=== PATIENT | male | born 1970 | race Caucasian/White ===

== ENCOUNTER 2016-08-18 07:24 | Emergency (ER) | payer OTHER ==
[~2016-08-18] VITALS: Wt 123.5 kg
[~2016-08-18 07:24] MED LIST: ASPI-664 PO; ATOR40TA68 PO; ERGO500014 PO; IBUP800T25 PO; INSU100C SQ; LANT3I SC; LOSA25TA5 PO; METO50TA16 PO
[2016-08-18] MEDS ORDERED: KETOROLAC 30 MG INJ IV STA (08:31)
--- NOTE | 2016-08-18 08:40 | ERD ---
ER Documentation Chief Complaint Date/Time DATE: 08/18/16 TIME: 08:33 Chief Complaint LOW BACK PAIN, ONSET 2 DAYS, NO INJURY HPI 46-year-old male with history of diabetes and hemorrhoids presents to the emergency department for complaints of left-sided flank pain that radiates laterally around to his left abdomen. Patient states the pain began last night and has gradually worsened. Patient denies any fever, or chills. Patient denies any nausea, vomiting, diarrhea, hematuria, bloody stool, calf pain, chest pain, or shortness of breath. Patient states that he is currently being followed by GI specialist as well as an oncologist because of the size and location of the hemorrhoid. Patient denies any history of colon cancer however. Patient is scheduled for a preop visit with a surgeon tomorrow and plans to keep his appointment. Patient states however that he could not stand the pain which she rates currently as a 6 out of 10 but increases to a 9 out of 10 on occasion. States the pain is sharp and mildly burning in nature. Patient denies any dysuria. Patient states she is here for pain control and to rule out a possible kidney infection although he states he does not have any history of kidney problems. Patient states he normally takes insulin to control his diabetes but forgot to take his morning dose as he was so uncomfortable and wanted to get to the emergency department as quickly as possible. ROS All systems reviewed and are negative except as per history of present illness. Medications Home Meds Active Scripts Atorvastatin* (Atorvastatin*) 40 Mg Tablet, 40 MG PO QHS for 60 Days, #30 TAB Prov:CAROLIN WIGGINS 06/19/16 Aspirin* (Aspirin* EC) 81 Mg Tablet.dr, 81 MG PO DAILY for 90 Days, TAB Prov:CAROLIN WIGGINS 06/19/16 Ibuprofen* (Motrin*) 800 Mg Tab, 800 MG PO Q6, #20 TAB Prov:HUNTER CARBALLO MD 06/01/16 Reported Medications Ergocalciferol* (Drisdol* (Vitamin D2)) 50,000 Unit Capsule, 28911 UNIT PO Q7D, CAP 06/18/16 Losartan Potassium* (Losartan Potassium*) Unknown Strength Tablet, MG PO DAILY, TAB 06/18/16 Metoprolol Succinate* (Toprol XL*) Unknown Strength Tab.er.24h, MG PO DAILY, # 30 TAB 06/18/16 Insulin Lispro (Humalog) 100 Unit/1 Ml Cartridge, 22 UNIT SQ BEFORE MEALS 06/18/16 Insulin Glargine* (Lantus*) 100 Unit/Ml Soln, 24 UNIT SC QHS, #1 VIAL 06/18/16 Allergies Allergies: Coded Allergies: acetaminophen (Unverified Allergy, Unknown, 06/23/16) PATIENT HAS ALLERGY FROM ANY OPIOID MEDICATIONS codeine (Unverified Allergy, Unknown, 06/23/16) PATIENT HAS ALLERGY FROM ANY OPIOID MEDICATIONS hydrocodone (Unverified Allergy, Unknown, 06/23/16) PATIENT HAS ALLERGY FROM ANY OPIOID MEDICATIONS morphine (Unverified Allergy, Unknown, 06/23/16) PATIENT HAS ALLERGY FROM ANY OPIOID MEDICATIONS PMhx/Soc History of Surgery: No Anesthesia Reaction: No Hx Neurological Disorder: No Hx Respiratory Disorders: No Hx Cardiac Disorders: No Hx Psychiatric Problems: No Hx Miscellaneous Medical Probl: No Hx Alcohol Use: No Hx Substance Use: No Hx Tobacco Use: No Smoking Status: Never smoker Physical Exam Vitals Vital Signs Date Time Temp Pulse Resp B/P Pulse Ox O2 Delivery O2 Flow Rate FiO2 08/18/16 07:29 97.8 93 18 150/100 100 Physical Exam Const: Well-developed, nontoxic-appearing, well-hydrated, in no acute distress Head: Atraumatic Eyes: Normal Conjunctiva ENT: Normal External Ears, Nose and Mouth. Neck: Full range of motion..~ No meningismus. Resp: Clear to auscultation bilaterally Cardio: Regular rate and rhythm, no murmurs Abd: Soft, non tender, non distended. Normal bowel sounds Skin: No petechiae or rashes Back: Significant left-sided flank pain upon palpation. Mild tenderness to palpation near left lower quadrant of abdomen. No McBurney's point tenderness. Negative Hargrove sign. Ext: No cyanosis, or edema Neur: Awake and alert Psych: Normal Mood and Affect Result Diagram: 08/18/16 0840 08/18/16 0840 Results 24 hrs Laboratory Tests Test 08/18/16 08:40 08/18/16 09:25 Alanine Aminotransferase (ALT/SGPT) 20IU/L Albumin 4.0g/dl Albumin/Globulin Ratio 1.11 Alkaline Phosphatase 123IU/L Anion Gap 17 Aspartate Amino Transf (AST/SGOT) 24IU/L Basophils # 0.110^3/ul Basophils % 0.6% Blood Urea Nitrogen 14mg/dl Calcium Level 9.0mg/dl Carbon Dioxide Level 28mmol/L Chloride Level 100mmol/L Creatinine 0.72mg/dl Direct Bilirubin 0.00mg/dl Eosinophils # 0.310^3/ul Eosinophils % 2.3% Globulin 3.60g/dl Glucose Level 252mg/dl Hematocrit 42.4% Hemoglobin 14.5g/dl Indirect Bilirubin 0.2mg/dl Lipase 42U/L Lymphocytes # 3.210^3/ul Lymphocytes % 28.8% Mean Corpuscular Hemoglobin 31.0pg Mean Corpuscular Hemoglobin Concent 34.1g/dl Mean Corpuscular Volume 90.8fl Mean Platelet Volume 7.9fl Monocytes # 0.510^3/ul Monocytes % 4.8% Neutrophils # 7.010^3/ul Neutrophils % 63.5% Nucleated Red Blood Cells # 0.010^3/ul Nucleated Red Blood Cells % 0.0/100WBC Platelet Count 74910^3/UL Potassium Level 4.6mmol/L Red Blood Count 4.6710^6/ul Red Cell Distribution Width 12.4% Sodium Level 140mmol/L Total Bilirubin 0.2mg/dl Total Protein 7.6g/dl White Blood Count 11.010^3/ul Urine Bilirubin NEGATIVE Urine Clarity CLEAR Urine Color LT. YELLOW Urine Glucose >=1000% Urine Hemoglobin NEGATIVE Urine Ketones NEGATIVE Urine Leukocyte Esterase NEGATIVE Urine Nitrite NEGATIVE Urine Specific [place] 1.020 Urine Total Protein NEGATIVE Urine Urobilinogen 2.0 E.U./dL Urine pH 6.0 Current Medications Medications (Trade) Dose Ordered Sig/Lore Route PRN Reason Start Time Stop Time Status Last Admin Dose Admin Ketorolac Tromethamine 30 mg 30 mg ONCE STAT IV 08/18/16 08:31 08/18/16 08:33 DC 08/18/16 08:37 Sodium Chloride (NS) 1,000 ml @ 1,000 mls/hr Q1H STAT IV 08/18/16 09:33 08/18/16 10:32 08/18/16 09:42 Procedures/MDM 46-year-old male with history of hemorrhoid presents to the emergency department with a one-day history of left-sided flank pain radiating to the left abdomen. At this time patient denies any complaints of rectal bleeding, hematuria, dysuria, fever, nausea or vomiting. Patient given 30 mg Toradol in the ER today for pain control This is a 46-year-old male with history of diabetes and hemorrhoids who presents with left-sided flank pain radiating to his abdomen. Vital signs were reviewed. Patient is afebrile. Patient is not hypoxic. Rectal exam revealed no evidence significant for perirectal or perianal abscess formation. CBC showed no evidence of systemic infection or severe anemia. CMP showed elevated glucose at 252. 1 L bolus of fluid administered to patient while in the emergency department. Otherwise CMP unremarkable and showed no evidence of electrolyte abnormalities, severe acidosis, alkalosis, renal failure , or liver disease. Lipase showed no evidence of acute pancreatitis. UA showed no evidence of acute infection, ketonuria or hematuria. Given these findings, the patients presentation is most consistent with internal hemorrhoid. I have a low suspicion for perianal or perirectal abscess, diabetic ketoacidosis, bowel obstruction,. Based on patient's history of present illness and physical examination the decision was made to discharge. The patient was re-evaluated after ED treatment and stabilizing measures, and symptoms have improved. There is no evidence of life threatening injuries or illnesses at this time. I provided the patient with copy of his laboratory tests and encourage the patient to keep his preop visit with surgeon tomorrow. Strict return precautions discussed. On re-examination, patient resting in no distress, stable vital signs, reports feeling better and safe for discharge with outpatient follow up with PMD in 1-2 days. Patient given return precautions. MIKE RIOS PA-C Aug 18, 2016 08:40
[2016-08-18 08:59] LABS: BASOPHIL # 0.1 10^3/ul (0.0-0.1); BASOPHILS % 0.6 % (0.0-2.0); EOSINOPHILS # 0.3 10^3/ul (0.0-0.5); EOSINOPHILS % 2.3 % (0.0-7.0); HEMATOCRIT 42.4 % (42.0-52.0); HEMOGLOBIN 14.5 g/dl (14.0-18.0); LYMPHOCYTES # 3.2 10^3/ul (0.8-2.9); LYMPHOCYTES % 28.8 % (15.0-51.0); MEAN CORPUSCULAR HGB CONC 34.1 g/dl (32.0-37.0); MEAN CORPUSCULAR VOLUME 90.8 fl (82.0-101.0); MEAN PLATELET VOLUME 7.9 fl (7.4-10.4); MONOCYTE # 0.5 10^3/ul (0.3-0.9); MONOCYTES % 4.8 % (0.0-11.0); NEUTROPHILS % 63.5 % (39.0-77.0); PLATELET COUNT 295 10^3/UL (140-440); RED BLOOD COUNT 4.67 10^6/ul (4.70-6.10); RED CELL DISTRIBUTION WIDTH 12.4 % (11.5-14.5)
[2016-08-18 09:01] LABS: CONDITION 1
[2016-08-18 09:08] LABS: POTASSIUM 4.6 mmol/L (3.5-5.1)
[2016-08-18 09:10] LABS: BILIRUBIN,INDIRECT 0.2 mg/dl (0-1.1); BILIRUBIN,TOTAL 0.2 mg/dl (0.2-1.3); CREATININE 0.72 mg/dl (0.61-1.24)
[2016-08-18 09:11] LABS: TOTAL PROTEIN 7.6 g/dl (6.1-8.1)
[2016-08-18 09:23] LABS: ALBUMIN/GLOBULIN RATIO 1.11
[2016-08-18] MEDS ORDERED: SOD CHLORIDE 0.9% 1,000 ML IV STA (09:33)
[2016-08-18 09:36] LABS: ADD UMIC NO; URINE BILIRUBIN (Dip) NEGATIVE (NEGATIVE); URINE BLOOD (Dip) NEGATIVE (NEGATIVE); URINE COLOR LT. YELLOW (YELLOW); URINE GLUCOSE (Dip) >=1000 % (NEGATIVE); URINE KETONES (Dip) NEGATIVE (NEGATIVE); URINE LEUKOCYTE ESTERASE (Dip) NEGATIVE (NEGATIVE); URINE NITRITE (Dip) NEGATIVE (NEGATIVE); URINE TOTAL PROTEIN (Dip) NEGATIVE (NEGATIVE); URINE UROBILINOGEN (Dip) 2.0 E.U./dL (0.1-1.0)
[2016-08-18] MEDS ORDERED: IBUP-1542 PO (10:29)
[2016-08-18 11:04] VITALS: BP 150/90; PULSE 82; RESP 18; TEMP 98.3
== END 2016-08-18 11:26 | disposition home or self-care (01) ==
LOC: FTE 07:24
DX: R10.9 Unspecified abdominal pain (principal); E11.9 Type 2 diabetes mellitus without complications; Z79.82 Long term (current) use of aspirin; Z79.4 Long term (current) use of insulin
CPT/HCPCS: 80053; 81003; 83690; 85025; J1885; J7030; 36415; 96374

== ENCOUNTER 2016-09-05 08:06 | Day surgery (SDC) | payer OTHER ==
[~2016-09-05] VITALS: Ht 170.2 cm; Wt 123.1 kg
[~2016-09-05 08:06] MED LIST changes: +CEFAZOLIN 2 GM/50 ML (PMX) 50 ML IVPB SCH; +IBUP-1542 PO; +SOD CHLORIDE 0.9% 1,000 ML IV SCH
[2016-09-05] MEDS ORDERED: LOSA50TA6 PO (09:29)
[2016-09-05 09:43] VITALS: BP 153/91; RESP 16
[2016-09-05 09:46] VITALS: Ht 170.2 cm; Wt 123.1 kg
== END 2016-09-05 12:25 | disposition home or self-care (01) ==
LOC: SDS 08:06
PROVIDERS: ATTEND Surgery Surgical Oncology
DX: K64.9 Unspecified hemorrhoids (principal); Z53.9 Procedure and treatment not carried out, unspecified reason; E11.9 Type 2 diabetes mellitus without complications; I10 Essential (primary) hypertension
CPT/HCPCS: 82962

== ENCOUNTER 2016-09-24 18:29 | Emergency (ER) | payer OTHER ==
[~2016-09-24] VITALS: Ht 175.3 cm; Wt 127.0 kg
[~2016-09-24 18:29] MED LIST changes: -ASPI-664 PO; -ATOR40TA68 PO; -CEFAZOLIN 2 GM/50 ML (PMX) 50 ML IVPB SCH; +LOSA50TA6 PO; -SOD CHLORIDE 0.9% 1,000 ML IV SCH
[2016-09-24 19:26] VITALS: Ht 175.3 cm; Wt 127.0 kg
[2016-09-24] MEDS ORDERED: IBUP800T25 PO (22:47)
[2016-09-24] MEDS ORDERED: AMO500 PO (22:47)
--- NOTE | 2016-09-24 22:52 | ERD ---
ER Documentation Chief Complaint Date/Time DATE: 09/24/16 TIME: 22:48 Chief Complaint left ear pain, sore throat x 1 week HPI Patient is a 46-year-old male who presents complaining of left-sided earache as well as sore throat for 1 week. His symptoms began after he had dental work to fix a cavity a week ago. Was not given antibiotics by the dentist. He states initially had a fever but he thinks that has now gone away and now he just has severe pain in the left ear as well as sore throat. No nausea or vomiting. He is tolerating oral intake. He takes ibuprofen at home with some relief of his pain. ROS All systems reviewed and are negative except as per history of present illness. Medications Home Meds Active Scripts Ibuprofen* (Motrin*) 800 Mg Tab, 800 MG PO Q6, #30 TAB Prov:MARIBEL COATS PA-C 09/24/16 Amoxicillin* (Amoxicillin*) 500 Mg Cap, 500 MG PO BID for 7 Days, CAP Prov:MARIBEL COATS PA-C 09/24/16 Ibuprofen* (Motrin*) 600 Mg Tab, 600 MG PO Q6H Y for PAIN for 7 Days, TAB Prov:MIKE RIOS PA-C 08/18/16 Ibuprofen* (Motrin*) 800 Mg Tab, 800 MG PO Q6, #20 TAB Prov:HUNTER CARBALLO MD 06/01/16 Reported Medications Losartan Potassium* (Losartan Potassium*) 50 Mg Tablet, 50 MG PO DAILY, TAB 09/05/16 Ergocalciferol* (Drisdol* (Vitamin D2)) 50,000 Unit Capsule, 72712 UNIT PO Q7D, CAP 06/18/16 Losartan Potassium* (Losartan Potassium*) Unknown Strength Tablet, MG PO DAILY, TAB 06/18/16 Metoprolol Succinate* (Toprol XL*) Unknown Strength Tab.er.24h, MG PO DAILY, # 30 TAB 06/18/16 Insulin Lispro (Humalog) 100 Unit/1 Ml Cartridge, 22 UNIT SQ BEFORE MEALS 06/18/16 Insulin Glargine* (Lantus*) 100 Unit/Ml Soln, 24 UNIT SC QHS, #1 VIAL 06/18/16 Allergies Allergies: Coded Allergies: acetaminophen (Unverified Allergy, Unknown, 09/05/16) PATIENT HAS ALLERGY FROM ANY OPIOID MEDICATIONS codeine (Unverified Allergy, Unknown, 09/05/16) PATIENT HAS ALLERGY FROM ANY OPIOID MEDICATIONS hydrocodone (Unverified Allergy, Unknown, 09/05/16) PATIENT HAS ALLERGY FROM ANY OPIOID MEDICATIONS morphine (Unverified Allergy, Unknown, 09/05/16) PATIENT HAS ALLERGY FROM ANY OPIOID MEDICATIONS PMhx/Soc History of Surgery: No Anesthesia Reaction: No Hx Neurological Disorder: No Hx Respiratory Disorders: No Hx Cardiac Disorders: Yes (hypertension and high cholesterol) Hx Psychiatric Problems: No Hx Miscellaneous Medical Probl: No Hx Alcohol Use: Yes (occasionaly) Hx Substance Use: Yes (marijuana occasionaly) Hx Tobacco Use: No FmHx Family History: diabetes Physical Exam Vitals Vital Signs Date Time Temp Pulse Resp B/P Pulse Ox O2 Delivery O2 Flow Rate FiO2 09/24/16 19:26 99.8 87 20 169/88 100 Physical Exam General: well developed, well nourished, alert, nontoxic, no distress Head: normocephalic, atraumatic Neck: Supple, nontender, no lymphadenopathy, no midline tenderness Ears: Right ear within normal limits. Left ear unable to visualize tympanic membranes secondary to cerumen impaction. Bilateral mastoids nontender Oropharynx: no tonsilar erythema or edema, uvula midline, no exudates, no kissing tonsils, no drooling Respiratory: Clear to auscaultation bilaterally, speaks in full sentences, no use of accesory muscles or labored breathing, no rales, ronchi, or wheezing Cardiovascular: RRR, No murmurs GI: soft, non tender, non distended, negative murphys sign, negative mcburneys point tenderness, no cva tenderness bilaterally, no rebound or guarding Procedures/MDM 46-year-old male presents with earache And sore throat. Low-grade temperature 99.6. Exam is pretty normal I am and I am unable to visualize tympanic membrane on the left side secondary to cerumen impaction. Low suspicion for peritonsillar abscess. However given the I am unable to visualize tympanic membrane and therefore fully rule out infection and also in the presence of recent dental work I will give him prescription for amoxicillin as well as ibuprofen. Recommended this patient follow up with her primary care doctor within 48 hours or return to the emergency room for any worsening of symptoms. However this time I do believe there is suitable for outpatient management. I answered all their questions and they agreed with the plan and were discharged home. Departure Diagnosis: Primary Impression: Otalgia Condition: Stable Patient Instructions: Otitis Media, Abx Tx (Adult) Additional Instructions: Call your primary care doctor TOMORROW for an appointment during the next 1-2 days.See the doctor sooner or return here if your condition worsens before your appointment time. MARIBEL COATS PA-C Sep 24, 2016 22:52
== END 2016-09-24 23:06 | disposition home or self-care (01) ==
LOC: FTE 18:29
DX: H92.02 Otalgia, left ear (principal); I10 Essential (primary) hypertension; E11.9 Type 2 diabetes mellitus without complications; Z79.4 Long term (current) use of insulin
CPT/HCPCS: 99283

== ENCOUNTER 2016-10-01 13:06 | Emergency (ER) | payer OTHER ==
[~2016-10-01] VITALS: Wt 127.0 kg
[~2016-10-01 13:06] MED LIST changes: +AMO500 PO
[2016-10-01 13:22] VITALS: Wt 127.0 kg
[2016-10-01] MEDS ORDERED: KETOROLAC 60 MG INJ IM STA (14:46)
[2016-10-01 14:58] LABS: URINE BLOOD (Dip) POC Negative (NEGATIVE)
[2016-10-01] MEDS ORDERED: IBUP800T25 PO (15:41)
--- NOTE | 2016-10-01 15:43 | ERD ---
ER Documentation Chief Complaint Date/Time DATE: 10/01/16 TIME: 15:42 Chief Complaint low back pain since this morning when tying his shoes. unable to standup HPI This 46-year-old male complains of low back pain after bending over to tie shoes today. His pain is left lower back radiating up to his mid back. It radiates slightly to his buttock. He denies any bowel bladder incontinence, fevers, weakness. He denies any urinary complaints ROS All systems reviewed and are negative except as per history of present illness. Medications Home Meds Active Scripts Ibuprofen* (Motrin*) 800 Mg Tab, 800 MG PO Q6, #30 TAB Prov:HUNTER CARBALLO MD 10/01/16 Ibuprofen* (Motrin*) 800 Mg Tab, 800 MG PO Q6, #30 TAB Prov:MARIBEL COATS PA-C 09/24/16 Amoxicillin* (Amoxicillin*) 500 Mg Cap, 500 MG PO BID for 7 Days, CAP Prov:MARIBEL COATS PA-C 09/24/16 Ibuprofen* (Motrin*) 600 Mg Tab, 600 MG PO Q6H Y for PAIN for 7 Days, TAB Prov:MIKE RIOS PA-C 08/18/16 Ibuprofen* (Motrin*) 800 Mg Tab, 800 MG PO Q6, #20 TAB Prov:HUNTER CARBALLO MD 06/01/16 Reported Medications Losartan Potassium* (Losartan Potassium*) 50 Mg Tablet, 50 MG PO DAILY, TAB 09/05/16 Ergocalciferol* (Drisdol* (Vitamin D2)) 50,000 Unit Capsule, 38426 UNIT PO Q7D, CAP 06/18/16 Losartan Potassium* (Losartan Potassium*) Unknown Strength Tablet, MG PO DAILY, TAB 06/18/16 Metoprolol Succinate* (Toprol XL*) Unknown Strength Tab.er.24h, MG PO DAILY, # 30 TAB 06/18/16 Insulin Lispro (Humalog) 100 Unit/1 Ml Cartridge, 22 UNIT SQ BEFORE MEALS 06/18/16 Insulin Glargine* (Lantus*) 100 Unit/Ml Soln, 24 UNIT SC QHS, #1 VIAL 06/18/16 Allergies Allergies: Coded Allergies: acetaminophen (Unverified Allergy, Unknown, 09/05/16) PATIENT HAS ALLERGY FROM ANY OPIOID MEDICATIONS codeine (Unverified Allergy, Unknown, 09/05/16) PATIENT HAS ALLERGY FROM ANY OPIOID MEDICATIONS hydrocodone (Unverified Allergy, Unknown, 09/05/16) PATIENT HAS ALLERGY FROM ANY OPIOID MEDICATIONS morphine (Unverified Allergy, Unknown, 09/05/16) PATIENT HAS ALLERGY FROM ANY OPIOID MEDICATIONS PMhx/Soc History of Surgery: No Anesthesia Reaction: No Hx Neurological Disorder: No Hx Respiratory Disorders: No Hx Cardiac Disorders: Yes (hypertension and high cholesterol) Hx Psychiatric Problems: No Hx Miscellaneous Medical Probl: Yes (DM) Hx Alcohol Use: Yes (occasionaly) Hx Substance Use: Yes (marijuana occasionaly) Hx Tobacco Use: No FmHx Urine is negative for leukocytes or blood. Some slight glucose consistent with patient's diabetes. There is no ketones. X-rays deferred given absence of significant mechanism. Patient was given Toradol 60 mg IM. Patient has signs and symptoms of acute lumbar sprain without evidence of cauda equina syndrome, neurologic deficit, epidural abscess, genitourinary etiology. We treated with ibuprofen at home instructions for follow-up with primary doctor. The patient was stable with no new complaints during the ER course. Clinically, there is no current evidence to suggest meningitis, sepsis, acute abdomen, pneumonia, acute coronary syndrome, pulmonary embolism, or any other emergent condition appearing to require further evaluation or hospitalization. The patient should certainly return for any new or worsening symptoms per the aftercare instructions. They should otherwise follow-up with her primary care doctor for reevaluation this week. Physical Exam Vitals Vital Signs Date Time Temp Pulse Resp B/P Pulse Ox O2 Delivery O2 Flow Rate FiO2 10/01/16 13:22 98.8 86 20 156/94 98 Physical Exam Const: [] Alert, [id number] . Morbidly obese Head: Atraumatic Eyes: Normal Conjunctiva ENT: Normal External Ears, Nose and Mouth. Neck: Full range of motion..~ No meningismus. Resp: Clear to auscultation bilaterally Cardio: Regular rate and rhythm, no murmurs Abd: Soft, non tender, non distended. Normal bowel sounds Skin: No petechiae or rashes Back: No midline or flank tenderness. Is some tenderness in the left L2-L3 paraspinous muscles. No midline tenderness or deformities. Mildly positive straight leg raise in the left. Patient is ambulatory without any deficits or weakness Ext: No cyanosis, or edema Neur: Awake and alert Psych: Normal Mood and Affect Results 24 hrs Laboratory Tests Test 10/01/16 15:01 Bedside Urine Blood Negative Bedside Urine Glucose (UA) 0.50% Bedside Urine Ketones (LAB) Negative Bedside Urine Leukocyte Esterase (L Negative Bedside Urine Nitrite (LAB) Negative Bedside Urine Protein (LAB) 1+ Bedside Urine pH (LAB) 6.0 Current Medications Medications (Trade) Dose Ordered Sig/Lore Route PRN Reason Start Time Stop Time Status Last Admin Dose Admin Ketorolac Tromethamine (Toradol) 60 mg ONCE STAT IM 10/01/16 14:46 10/01/16 14:47 DC 10/01/16 15:01 Tramadol HCl (Ultram) 50 mg ONCE ONCE PO 10/01/16 16:00 10/01/16 16:01 DC 10/01/16 15:57 Diazepam (Valium) 10 mg ONCE ONCE IM 10/01/16 16:00 10/01/16 16:01 DC 10/01/16 15:57 Procedures/MDM X-ray LS-Spine 3V Interpreted by me: Bones: [No fracture] Joints: [No dislocation] Foreign body: [None]. Degenerative disc disease L3-L4, L5-S1 Patient had persistent pain after Toradol. Patient was given Valium 10 mg and tramadol 50 mg p.o. Patient had improved pain.. Patient presents with acute low back pain after bending over without signs or symptoms to suggest cauda equina syndrome, epidural abscess, fracture, dislocation, neurologic deficit. We discharged home with a short course of Valium and tramadol instructions to follow-up with primary doctor. He should return for fevers, weakness, new worsening symptoms. The patient was stable with no new complaints during the ER course. Clinically, there is no current evidence to suggest meningitis, sepsis, acute abdomen, pneumonia, acute coronary syndrome, pulmonary embolism, or any other emergent condition appearing to require further evaluation or hospitalization. The patient should certainly return for any new or worsening symptoms per the aftercare instructions. They should otherwise follow-up with her primary care doctor for reevaluation this week. Departure Diagnosis: Primary Impression: Injury of back Encounter type: initial encounter Qualified Code: S39.92XA - Injury of back , initial encounter Condition: Stable Patient Instructions: Back Sprain/Strain Additional Instructions: Urine shows no blood or abnormalities as cause of pain. Recommend stretching and ice at home and follow-up with primary care doctor return for fevers, weakness, new symptoms HUNTER CARBALLO MD Oct 01, 2016 15:43
[2016-10-01] MEDS ORDERED: traMADol 50 MG TAB PO ONE (16:00)
[2016-10-01] MEDS ORDERED: DIAZEPAM 5 MG/ML SYG IM ONE (16:00)
--- NOTE | 2016-10-01 16:53 | RADRPT ---
PROCEDURE: XR Lumbar Spine. CLINICAL INDICATION: Low back pain. TECHNIQUE: 3 views of the lumbar spine are available for review COMPARISON: None available FINDINGS: There is moderate L3-4 and L5-S1 and mild L1-3 degenerative disk disease. This is associated with disk space narrowing, endplate sclerosis and spondylosis. The vertebral bodies are otherwise normal in mineralization, architecture and alignment. No fractures or osseous lesions are identified. No subluxation is demonstrated. The facet joints are unremarkable. The soft tissues are unremarkable . IMPRESSION: Moderate L3-4 and L5-S1 and mild L1-3 degenerative disk disease. RPTAT: HGDB .Mo Zavaleta MD, MD Date Time Electronically viewed and signed by .Mo Zavaleta MD, on 10/01/2016 16:53 .B/
[2016-10-01] MEDS ORDERED: DIAZ-90 PO (17:10)
[2016-10-01] MEDS ORDERED: TRAM50TA2 PO (17:10)
== END 2016-10-01 17:18 | disposition home or self-care (01) ==
LOC: FTE 13:06
DX: S39.92XA Unspecified injury of lower back, initial encounter (principal); I10 Essential (primary) hypertension; E11.9 Type 2 diabetes mellitus without complications; X50.1XXA Overexertion from prolonged static or awkward postures, initial encounter; Y92.9 Unspecified place or not applicable; Z79.4 Long term (current) use of insulin
CPT/HCPCS: 72100; 81003; 96372; J1885; J3360; Z7502; Z7610

== ENCOUNTER 2016-10-07 11:50 | Emergency (ER) | payer SELFPAY ==
[~2016-10-07] VITALS: Wt 128.0 kg
[~2016-10-07 11:50] MED LIST changes: +DIAZ-90 PO; +TRAM50TA2 PO
== END 2016-10-07 15:33 | disposition left against medical advice (07) ==
LOC: E/R 11:50
DX: Z53.21 Procedure and treatment not carried out due to patient leaving prior to being seen by health care provider (principal)

== ENCOUNTER 2016-11-10 19:00 | Emergency (ER) | payer OTHER ==
[~2016-11-10] VITALS: Ht 177.8 cm; Wt 131.5 kg
[2016-11-10 19:09] VITALS: Ht 177.8 cm; Wt 131.5 kg
[2016-11-10] MEDS ORDERED: IBUPROFEN 800 MG TAB PO ONE (20:00)
--- NOTE | 2016-11-10 20:42 | RADRPT ---
PROCEDURE: XR Left Shoulder CLINICAL INDICATION: Fall TECHNIQUE: AP internal and external rotation views and a Y-view were submitted. COMPARISON: None FINDINGS: Osseous structures: appear well mineralized and intact with no fracture or destructive process iden tified. Joint spaces: The glenohumeral joint appears unremarkable. Mild degenerative changes seen about the left AC joint. Soft tissues: The soft tissues appear quite generous. IMPRESSION: 1. Mild degenerative change seen about the left AC joint. 2. No fractures identified. Physician Tray Date Time Electronically viewed and signed by Kourtney Lea Physician on 11/10/2016 20:42 RH/
--- NOTE | 2016-11-10 20:44 | RADRPT ---
PROCEDURE: XR Left Hand CLINICAL INDICATION: Fall TECHNIQUE: AP, oblique, and lateral radiographs were submitted. COMPARISON: None FINDINGS: Osseous structures: appear well mineralized and intact with no fracture or destructive process iden tified. There is an area of sclerosis involving the cortex at the anterior base of the distal phalan x of the fourth finger most compatible with a bone island. Joint spaces: are well maintained, with no significant spurring, erosion or joint effusion evident. Soft tissues: appear unremarkable. IMPRESSION: Unremarkable left hand. Physician Tray Date Time Electronically viewed and signed by Kourtney Lea Physician on 11/10/2016 20:44 RH/
--- NOTE | 2016-11-10 20:45 | RADRPT ---
PROCEDURE: CR Left Elbow CLINICAL INDICATION: Fall TECHNIQUE: AP, lateral, and an oblique radiographs were submitted. COMPARISON: None FINDINGS: Osseous Structures: There is a corticated ossification seen off the lateral epicondyle that could be developmental or related to old trauma. No acute fracture is identified. Joint Spaces: The joint spaces are well maintained. No joint effusion is evident. Soft Tissues: Appear unremarkable. IMPRESSION: 1. Corticated ossification seen at the lateral epicondyle which is either developmental or a sequel ae of old trauma. 2. No acute fracture or dislocation is evident. Physician Tray Date Time Electronically viewed and signed by Physician Tray on 11/10/2016 20:45 RH/
[2016-11-10] MEDS ORDERED: IBUP-1542 PO (21:19)
--- NOTE | 2016-11-10 21:24 | ERD ---
ER Documentation Chief Complaint Date/Time DATE: 11/10/16 TIME: 21:20 Chief Complaint sp fall from poech 3 steps backwards, neckstiff, lft aarm pain back pain HPI Patient is a 46-year-old male with diabetes and hypertension who presents with left arm pain. He said that he lost his footing and fell off of a porch which is about 3 steps high. He has pain from his left shoulder all the way down to his left hand. He said that this happened a few hours ago. He did not lose consciousness. He has had no treatment for pain as of yet. He has had no vomiting. He goes to a local clinic for his pain. The pain is sharp in nature and constant. ROS All systems reviewed and are negative except as per history of present illness. Medications Home Meds Active Scripts Ibuprofen* (Motrin*) 600 Mg Tab, 600 MG PO Q6H Y for PAIN AND OR ELEVATED TEMP, #30 TAB Prov:JIMBO DE LA CRUZ MD 11/10/16 Diazepam* (Valium*) 5 Mg Tablet, 5 MG PO Q8, #10 TAB Prov:HUNTER CARBALLO MD 10/01/16 Tramadol HCl (Tramadol HCl) 50 Mg Tablet, 50 MG PO Q4 Y for PAIN, #15 TAB Prov:HUNTER CARBALLO MD 10/01/16 Ibuprofen* (Motrin*) 800 Mg Tab, 800 MG PO Q6, #30 TAB Prov:HUNTER CARBALLO MD 10/01/16 Ibuprofen* (Motrin*) 800 Mg Tab, 800 MG PO Q6, #30 TAB Prov:MARIBEL COATS PA-C 09/24/16 Amoxicillin* (Amoxicillin*) 500 Mg Cap, 500 MG PO BID for 7 Days, CAP Prov:MARIBEL COATS PA-C 09/24/16 Ibuprofen* (Motrin*) 600 Mg Tab, 600 MG PO Q6H Y for PAIN for 7 Days, TAB Prov:MIKE RIOS PA-C 08/18/16 Ibuprofen* (Motrin*) 800 Mg Tab, 800 MG PO Q6, #20 TAB Prov:HUNTER CARBALLO MD 06/01/16 Reported Medications Losartan Potassium* (Losartan Potassium*) 50 Mg Tablet, 50 MG PO DAILY, TAB 09/05/16 Ergocalciferol* (Drisdol* (Vitamin D2)) 50,000 Unit Capsule, 27821 UNIT PO Q7D, CAP 06/18/16 Losartan Potassium* (Losartan Potassium*) Unknown Strength Tablet, MG PO DAILY, TAB 06/18/16 Metoprolol Succinate* (Toprol XL*) Unknown Strength Tab.er.24h, MG PO DAILY, # 30 TAB 06/18/16 Insulin Lispro (Humalog) 100 Unit/1 Ml Cartridge, 22 UNIT SQ BEFORE MEALS 06/18/16 Insulin Glargine* (Lantus*) 100 Unit/Ml Soln, 24 UNIT SC QHS, #1 VIAL 06/18/16 Allergies Allergies: Coded Allergies: acetaminophen (Unverified Allergy, Unknown, 09/05/16) PATIENT HAS ALLERGY FROM ANY OPIOID MEDICATIONS codeine (Unverified Allergy, Unknown, 09/05/16) PATIENT HAS ALLERGY FROM ANY OPIOID MEDICATIONS hydrocodone (Unverified Allergy, Unknown, 09/05/16) PATIENT HAS ALLERGY FROM ANY OPIOID MEDICATIONS morphine (Unverified Allergy, Unknown, 09/05/16) PATIENT HAS ALLERGY FROM ANY OPIOID MEDICATIONS PMhx/Soc Medical and Surgical Hx: pt denies Surgical Hx History of Surgery: No Anesthesia Reaction: No Hx Neurological Disorder: Yes (CVA) Hx Respiratory Disorders: No Hx Cardiac Disorders: Yes (hypertension and high cholesterol) Hx Psychiatric Problems: No Hx Miscellaneous Medical Probl: Yes (DM) Hx Alcohol Use: Yes (occasionaly) Hx Substance Use: Yes (marijuana occasionaly) Hx Tobacco Use: No Smoking Status: Never smoker FmHx Family History: diabetes Physical Exam Vitals Vital Signs Date Time Temp Pulse Resp B/P Pulse Ox O2 Delivery O2 Flow Rate FiO2 11/10/16 19:09 97.6 112 20 178/100 99 Physical Exam Const: Mild distress secondary to pain Head: Atraumatic Eyes: Normal Conjunctiva ENT: Normal External Ears, Nose and Mouth. Neck: Full range of motion..~ No meningismus. Resp: Clear to auscultation bilaterally Cardio: Regular rate and rhythm, no murmurs Abd: Soft, non tender, non distended. Normal bowel sounds Skin: No petechiae or rashes Back: No midline or flank tenderness Ext: Left shoulder pain, left elbow pain, left hand pain with palpation but there is no sign of bruising or obvious deformity noted Neur: Awake and alert Psych: Normal Mood and Affect Results 24 hrs Current Medications Medications (Trade) Dose Ordered Sig/Lore Route PRN Reason Start Time Stop Time Status Last Admin Dose Admin Ibuprofen (Motrin) 800 mg ONCE ONCE PO 11/10/16 20:00 11/10/16 20:01 DC 11/10/16 20:24 Procedures/MDM X-ray of the left shoulder negative per radiology. X-ray left elbow negative for fracture per radiology. X-ray left hand negative for fracture per radiology. Patient is a 46-year-old male with hypertension and diabetes who presents with a fall. The patient had x-rays of the shoulder, elbow, and hand which were all negative. The patient was given ibuprofen for pain. This was a trip and fall and I do not think it was syncope. There is no obvious sign of intracranial hemorrhage or mass in his neurologic exam is normal. All 3 nerve roots of the left upper extremity are intact. The patient has good pulses in the upper extremities bilaterally. I believe outpatient management is appropriate. The patient can return for any worsening symptoms. He will be given a prescription for ibuprofen. He should follow-up with his primary doctor within 24-48 hours for reevaluation. Departure Diagnosis: Primary Impression: Fall Encounter type: initial encounter Qualified Code: W19.XXXA - Fall, initial encounter Additional Impression: Fall with no significant injury Encounter type: initial encounter Qualified Code: W19.XXXA - Fall with no significant injury, initial encounter Condition: Fair Patient Instructions: Fall, Mechanical Referrals: Your doctor Additional Instructions: Call your primary care doctor TOMORROW for an appointment during the next 1-2 days.See the doctor sooner or return here if your condition worsens before your appointment time. JIMBO DE LA CRUZ MD Nov 10, 2016 21:23
== END 2016-11-10 21:54 | disposition home or self-care (01) ==
LOC: FTE 19:00
DX: S59.912A Unspecified injury of left forearm, initial encounter (principal); I10 Essential (primary) hypertension; E11.9 Type 2 diabetes mellitus without complications; W10.9XXA Fall (on) (from) unspecified stairs and steps, initial encounter; Y92.9 Unspecified place or not applicable; Z79.4 Long term (current) use of insulin
CPT/HCPCS: 73030; 73080; 73130; Z7610

== ENCOUNTER 2016-11-20 16:02 | Emergency (ER) | payer OTHER ==
[~2016-11-20] VITALS: Wt 130.0 kg
[2016-11-20] MEDS ORDERED: KETOROLAC 60 MG INJ IM STA (18:18)
--- NOTE | 2016-11-20 18:48 | RADRPT ---
PROCEDURE: CT Head without contrast. CLINICAL INDICATION: Fall with pain TECHNIQUE: The study was performed utilizing a GE 64-slice multidetector CT scanner. Direct spiral axial CT images of the brain were obtained from the vertex to the skull base without contrast. Cor onal and sagittal reformat images are provided. The CTDI vol is 43.58 mGy and the DLP is 720.23 mGy -cm. The images were reviewed on a PACS workstation. COMPARISON: 06/18/2016 FINDINGS: The ventricles and cortical sulci are within normal limits. The monroe-white matter differentiation i s maintained. No intra or extra-axial fluid collection or mass effect or shift in the midline struc tures is seen. The visualized paranasal sinuses, mastoid air cells, orbits, and calvarium are unrem arkable. IMPRESSION: Unremarkable CT of the head without contrast. RPTAT: HPNM Physician Kristine Date Time Electronically viewed and signed by Physician Kristine on 11/20/2016 18:47 /
[2016-11-20] MEDS ORDERED: IBUP-1542 PO (19:20)
--- NOTE | 2016-11-20 19:52 | ERD ---
ER Documentation Chief Complaint Date/Time DATE: 11/20/16 TIME: 19:48 Chief Complaint R ANKLE PAIN AFTER MECHANICAL HPI This is a 46-year-old male that presents to the ER after falling twice today. Patient has a past medical history of a stroke and is weaker on the left side. Patient normally has numbness and tingling of his left foot. Today while he was going downstairs he said his foot wrong and fell down. Patient tried to catch himself with his right foot however he could not. Patient then developed right ankle pain from fall. When patient arrived to the ER he tried to put his weight on his bad foot however his foot gave out and he fell back hitting his lower back, right rib cage, right shoulder and head. Patient denies any loss of consciousness he denies any nausea or vomiting. Patient does states that he is feeling dizzy now secondary to fall. Patient denies any urinary bowel incontinence. He denies any saddle like anesthesia. ROS 12 point review of systems was done, all negative except per HPI. Medications Home Meds Active Scripts Ibuprofen* (Motrin*) 600 Mg Tab, 600 MG PO Q6, #30 TAB Prov:BEKAH ARCHER 11/20/16 Ibuprofen* (Motrin*) 600 Mg Tab, 600 MG PO Q6H Y for PAIN AND OR ELEVATED TEMP, #30 TAB Prov:JIMBO DE LA CRUZ MD 11/10/16 Diazepam* (Valium*) 5 Mg Tablet, 5 MG PO Q8, #10 TAB Prov:HUNTER CARBALLO MD 10/01/16 Tramadol HCl (Tramadol HCl) 50 Mg Tablet, 50 MG PO Q4 Y for PAIN, #15 TAB Prov:HUNTER CARBALLO MD 10/01/16 Ibuprofen* (Motrin*) 800 Mg Tab, 800 MG PO Q6, #30 TAB Prov:HUNTER CARBALLO MD 10/01/16 Ibuprofen* (Motrin*) 800 Mg Tab, 800 MG PO Q6, #30 TAB Prov:MARIBEL COATS PA-C 09/24/16 Amoxicillin* (Amoxicillin*) 500 Mg Cap, 500 MG PO BID for 7 Days, CAP Prov:MARIBEL COATS PA-C 09/24/16 Ibuprofen* (Motrin*) 600 Mg Tab, 600 MG PO Q6H Y for PAIN for 7 Days, TAB Prov:RIOS,MIKE M. PA-C 08/18/16 Ibuprofen* (Motrin*) 800 Mg Tab, 800 MG PO Q6, #20 TAB Prov:HUNTER CARBALLO MD 06/01/16 Reported Medications Losartan Potassium* (Losartan Potassium*) 50 Mg Tablet, 50 MG PO DAILY, TAB 09/05/16 Ergocalciferol* (Drisdol* (Vitamin D2)) 50,000 Unit Capsule, 98834 UNIT PO Q7D, CAP 06/18/16 Losartan Potassium* (Losartan Potassium*) Unknown Strength Tablet, MG PO DAILY, TAB 06/18/16 Metoprolol Succinate* (Toprol XL*) Unknown Strength Tab.er.24h, MG PO DAILY, # 30 TAB 06/18/16 Insulin Lispro (Humalog) 100 Unit/1 Ml Cartridge, 22 UNIT SQ BEFORE MEALS 06/18/16 Insulin Glargine* (Lantus*) 100 Unit/Ml Soln, 24 UNIT SC QHS, #1 VIAL 06/18/16 Allergies Allergies: Coded Allergies: acetaminophen (Unverified Allergy, Unknown, 09/05/16) PATIENT HAS ALLERGY FROM ANY OPIOID MEDICATIONS codeine (Unverified Allergy, Unknown, 09/05/16) PATIENT HAS ALLERGY FROM ANY OPIOID MEDICATIONS hydrocodone (Unverified Allergy, Unknown, 09/05/16) PATIENT HAS ALLERGY FROM ANY OPIOID MEDICATIONS morphine (Unverified Allergy, Unknown, 09/05/16) PATIENT HAS ALLERGY FROM ANY OPIOID MEDICATIONS PMhx/Soc History of Surgery: No Anesthesia Reaction: No Hx Neurological Disorder: Yes (CVA) Hx Respiratory Disorders: No Hx Cardiac Disorders: Yes (hypertension and high cholesterol) Hx Psychiatric Problems: No Hx Miscellaneous Medical Probl: Yes (DM) Hx Alcohol Use: Yes (occasionaly) Hx Substance Use: Yes (marijuana occasionaly) Hx Tobacco Use: No Smoking Status: Never smoker Physical Exam Vitals Vital Signs Date Time Temp Pulse Resp B/P Pulse Ox O2 Delivery O2 Flow Rate FiO2 11/20/16 16:08 98.0 76 18 174/73 99 Physical Exam GENERAL: The patient is well developed and appropriate for usual state of health , in no apparent distress. HEENT: Atraumatic. HEART: Regular rate and rhythm. No murmurs, clicks, rubs or gallops. ABDOMEN: Soft, nontender and nondistended. EXTREMITIES: Patient is full range of motion of the right ankle he is tender to palpation to the lateral and medial malleolus. Negative tarsal test test. Patient is tender to palpation along the right rib cage and the right shoulder he does have full range of motion of his right shoulder negative drop arm test. NEURO: Alert and oriented. Cranial nerves II through XII are intact. Motor strength in all 4 extremities with 5/5 strength. Sensation grossly intact. Normal speech and gait. SKIN: Patient has an eczema on right elbow Results 24 hrs Current Medications Medications (Trade) Dose Ordered Sig/Lore Route PRN Reason Start Time Stop Time Status Last Admin Dose Admin Ketorolac Tromethamine (Toradol) 60 mg ONCE STAT IM 11/20/16 18:18 11/20/16 18:20 DC 11/20/16 18:43 Procedures/MDM This is a 46-year-old male presents to the ER after he fell. At this time I am awaiting x-ray results, CT scan of the head is normal. If patient's imaging is abnormal, patient will be sent home with ibuprofen. He needs to follow-up with his primary care doctor within 1-2 days or return to ER sooner if symptoms worsen. My medical decision making was shared with the patient he understands and agrees with plan Departure Diagnosis: Primary Impression: Fall Condition: Stable Patient Instructions: Fall, Mechanical Additional Instructions: Call your primary care doctor TOMORROW for an appointment during the next 1-2 days.See the doctor sooner or return here if your condition worsens before your appointment time. BEKAH ARCHER Nov 20, 2016 19:52
--- NOTE | 2016-11-20 20:27 | RADRPT ---
PROCEDURE: XR Ankle. CLINICAL INDICATION: Right ankle pain. TECHNIQUE: Three views of the right ankle were performed. COMPARISON: None. FINDINGS: No acute fracture or dislocation is seen. The ankle mortise is symmetric. Plantar and calcaneal spur s are noted measuring up to 5 mm. No radiopaque foreign body is identified. No significant soft tis benoit swelling is noted. IMPRESSION: 1. No acute fracture or dislocation. 2. Plantar and calcaneal spurs. RPTAT: HFN .Ave Julian MD, Date Time Electronically viewed and signed by .Ave Julian MD, on 11/20/2016 20:27 .N/
--- NOTE | 2016-11-20 20:29 | RADRPT ---
PROCEDURE: XR Shoulder. CLINICAL INDICATION: Right shoulder pain TECHNIQUE: Three views of the right shoulder are available for review. COMPARISON: None available FINDINGS: No acute fracture or dislocation is seen. No radiopaque foreign body is identified. The acromioclav icular joint is grossly unremarkable. The visualized portions of the right clavicle and upper right rib cage are equally unremarkable. IMPRESSION: 1. No acute fracture or dislocation is seen. RPTAT: HFN .Ave Julian MD, MD Date Time Electronically viewed and signed by .Ave Julian MD, on 11/20/2016 20:29 .N/
--- NOTE | 2016-11-20 20:29 | RADRPT ---
PROCEDURE: XR Chest. CLINICAL INDICATION: Fall. Pain. TECHNIQUE: PA and lateral chest x-ray. COMPARISON: 06/18/2016. FINDINGS: The cardiomediastinal silhouette is unremarkable. There are bilateral low lung volumes with vascular crowding and mild bibasilar atelectasis. No pneum othorax, pleural effusion or consolidation is seen. No acute osseous abnormality is noted. IMPRESSION: 1. Low lung volumes with compressive changes and mild bibasilar atelectasis. RPTAT: HFN .Ave Julian MD, MD Date Time Electronically viewed and signed by .Ave Julian MD, on 11/20/2016 20:28 .N/
--- NOTE | 2016-11-20 20:33 | RADRPT ---
PROCEDURE: XR Lumbar Spine. CLINICAL INDICATION: Fall. Low back pain. TECHNIQUE: Three views of the lumbar spine are available for review COMPARISON: 10/01/2016. FINDINGS: The normal lumbar lordosis is preserved. Alignment is intact. Chronic mild compression deformity of T12 vertebral body is noted. Otherwise the lumbar vertebral body heights are preserved. No acute fracture or dislocation is seen. There are multilevel mild to moderate degenerative changes of lumbar spine, most pronounced at L5-S1 . Multilevel mild facet arthropathy most pronounced at L5-S1. These contribute to significant forami nal stenosis at L5-S1 and mild at other levels. IMPRESSION: 1. No acute fracture or dislocation. 2. Chronic mild compression deformity of T12 vertebral body. 3. Multilevel mild to moderate degenerative changes of lumbar spine, most pronounced at L5-S1. 4. Multilevel foraminal stenosis most severe at L5-S1. RPTAT: HFN .Ave Julian MD, Date Time Electronically viewed and signed by .Ave Julian MD, MD on 11/20/2016 20:33 .N/
[2016-11-20 21:12] VITALS: BP 174/97; PULSE 95; RESP 18; TEMP 98.9
== END 2016-11-20 21:25 | disposition home or self-care (01) ==
LOC: FTE 16:02
DX: S99.911A Unspecified injury of right ankle, initial encounter (principal); I10 Essential (primary) hypertension; E11.9 Type 2 diabetes mellitus without complications; R51 Headache; W18.09XA Striking against other object with subsequent fall, initial encounter; Y92.9 Unspecified place or not applicable; Z79.4 Long term (current) use of insulin
CPT/HCPCS: 70450; 71100; 72100; 73030; 73610; 96372; J1885; Z7502

== ENCOUNTER 2017-01-17 11:02 | Emergency (ER) | payer OTHER ==
[~2017-01-17] VITALS: Ht 177.8 cm; Wt 110.0 kg
[2017-01-17 11:05] VITALS: Ht 177.8 cm; Wt 110.0 kg
[2017-01-17] MEDS ORDERED: LORAZEPAM 1 MG TAB PO ONE (11:30)
[2017-01-17 11:52] VITALS: BP 158/87; PULSE 77; RESP 19
--- NOTE | 2017-01-17 12:07 | ERD ---
ER Documentation Chief Complaint Date/Time DATE: 01/17/17 TIME: 12:01 Chief Complaint LEFT SIDED WEAKNESS SINCE THIS 2AM HPI 46-year-old man brought in by EMS for severe anxiety reaction, patient states symptoms began last night at about 2 AM (about 9 hours prior to evaluation) with paresthesias to the left side and inability to speak. Upon EMS arrival 9 hours later he states he has continued paresthesias to the left upper extremity and states he has "slurred speech", but also told them that he has had those symptoms in the past and that those are chronic from his previous stroke. In route the patient's symptoms completely resolved and here in the emergency department patient has no complaints and states he had a "severe anxiety attack " and feels much better. Patient also states he did not use his morning antihypertensives. He denies chest pain or shortness of breath, no loss of bowel or bladder control, no weakness in his arms or legs. EMS stated he was fully ambulatory in room able to speak in clear sentences without difficulty and had no complaints. ROS All systems reviewed and are negative except as per history of present illness. Medications Home Meds Active Scripts Ibuprofen* (Motrin*) 600 Mg Tab, 600 MG PO Q6, #30 TAB Prov:BEKAH ARCHER 11/20/16 Ibuprofen* (Motrin*) 600 Mg Tab, 600 MG PO Q6H Y for PAIN AND OR ELEVATED TEMP, #30 TAB Prov:JIMBO DE LA CRUZ MD 11/10/16 Diazepam* (Valium*) 5 Mg Tablet, 5 MG PO Q8, #10 TAB Prov:HUNTER CARBALLO MD 10/01/16 Tramadol HCl (Tramadol HCl) 50 Mg Tablet, 50 MG PO Q4 Y for PAIN, #15 TAB Prov:HUNTER CARBALLO MD 10/01/16 Ibuprofen* (Motrin*) 800 Mg Tab, 800 MG PO Q6, #30 TAB Prov:HUNTER CARBALLO MD 10/01/16 Ibuprofen* (Motrin*) 800 Mg Tab, 800 MG PO Q6, #30 TAB Prov:MARIBEL COATS PA-C 09/24/16 Amoxicillin* (Amoxicillin*) 500 Mg Cap, 500 MG PO BID for 7 Days, CAP Prov:MARIBEL COATS PA-C 09/24/16 Ibuprofen* (Motrin*) 600 Mg Tab, 600 MG PO Q6H Y for PAIN for 7 Days, TAB Prov:MIKE RIOS PA-C 08/18/16 Ibuprofen* (Motrin*) 800 Mg Tab, 800 MG PO Q6, #20 TAB Prov:HUNTER CARBALLO MD 06/01/16 Reported Medications Losartan Potassium* (Losartan Potassium*) 50 Mg Tablet, 50 MG PO DAILY, TAB 09/05/16 Ergocalciferol* (Drisdol* (Vitamin D2)) 50,000 Unit Capsule, 87825 UNIT PO Q7D, CAP 06/18/16 Losartan Potassium* (Losartan Potassium*) Unknown Strength Tablet, MG PO DAILY, TAB 06/18/16 Metoprolol Succinate* (Toprol XL*) Unknown Strength Tab.er.24h, MG PO DAILY, # 30 TAB 06/18/16 Insulin Lispro (Humalog) 100 Unit/1 Ml Cartridge, 22 UNIT SQ BEFORE MEALS 06/18/16 Insulin Glargine* (Lantus*) 100 Unit/Ml Soln, 24 UNIT SC QHS, #1 VIAL 06/18/16 Allergies Allergies: Coded Allergies: acetaminophen (Unverified Allergy, Unknown, 09/05/16) PATIENT HAS ALLERGY FROM ANY OPIOID MEDICATIONS codeine (Unverified Allergy, Unknown, 09/05/16) PATIENT HAS ALLERGY FROM ANY OPIOID MEDICATIONS hydrocodone (Unverified Allergy, Unknown, 09/05/16) PATIENT HAS ALLERGY FROM ANY OPIOID MEDICATIONS morphine (Unverified Allergy, Unknown, 09/05/16) PATIENT HAS ALLERGY FROM ANY OPIOID MEDICATIONS PMhx/Soc Obesity, TIA, hypertension, diabetes mellitus History of Surgery: No Anesthesia Reaction: No Hx Neurological Disorder: Yes (CVA) Hx Respiratory Disorders: No Hx Cardiac Disorders: Yes (hypertension and high cholesterol) Hx Psychiatric Problems: Yes (ANXIETY) Hx Miscellaneous Medical Probl: Yes (DM) Hx Alcohol Use: Yes (occasionaly) Hx Substance Use: Yes (marijuana occasionaly) Hx Tobacco Use: No Smoking Status: Former smoker FmHx Family History: No diabetes Physical Exam Vitals Vital Signs Date Time Temp Pulse Resp B/P Pulse Ox O2 Delivery O2 Flow Rate FiO2 01/17/17 11:52 77 19 158/87 99 Room Air 01/17/17 11:05 98.3 90 19 178/101 99 Physical Exam GENERAL: Well-developed, well-nourished, well-hydrated, in no apparent distress , looks nontoxic in appearance HEENT: Moist mucous membranes, pink conjunctiva, no cervical spine tenderness or step-off deformities, no goiter, no jaundice or icterus, extraocular movements intact without pain. No submandibular induration, and no pharyngeal erythema NEURO: Alert and oriented 3, positive facial asymmetry with weakness on the left compared to the right, cranial nerves II through XII intact bilaterally, pupils equal round reactive to light, sensation intact distally Strength 5/5 in upper and lower extremities bilaterally CARDIAC: Regular rate and rhythm, no murmurs rubs or gallops LUNGS: Clear bilaterally no wheezing crackles or stridor ABDOMEN: Soft nontender, no guarding, no rigidity, no rebound, no psoas sign no obturator sign. Normoactive bowel sounds SKIN: Warm and dry to touch, no abrasions, contusions, or hematomas, no lacerations, no ecchymosis, no target lesions, and without ulcers EXTREMITIES: No clubbing cyanosis or edema, calves are bilaterally symmetrical, no Homans sign, no popliteal cord sign. Distal pulses equal and bilateral PSYCH: Normal affect without agitation or irritability Results 24 hrs Current Medications Medications (Trade) Dose Ordered Sig/Lore Route PRN Reason Start Time Stop Time Status Last Admin Dose Admin Clonidine (Catapres) 0.1 mg ONCE ONCE PO 01/17/17 11:30 01/17/17 11:31 DC 01/17/17 11:34 Lorazepam (Ativan) 1 mg ONCE ONCE PO 01/17/17 11:30 01/17/17 11:31 DC 01/17/17 11:34 Procedures/MDM Patient is not a TPA candidate given the onset and duration of symptoms and the improvement in his symptoms overall. I recommended a full ED workup and management including but not limited to imaging and possible admission given his overall history, symptomatology, and presentation although patient refused completely. After discussing his symptoms he stated he felt better and that this "always happens then", and that he suspected anxiety. He refused blood work and imaging including CT scan of the brain which is what I recommended. For his symptoms I administered lorazepam 1 mg p.o., and for hypertension he received clonidine 0.1 mg p.o. with improvement. Differential diagnoses considered, included but not limited to acute coronary syndrome, pulmonary embolism, aortic dissection, abdominal aortic aneurysm, sepsis, stroke, meningitis, encephalitis, pneumonia, appendicitis, cholecystitis , bowel obstruction, pyelonephritis, nephrolithiasis, cystitis, as well as metabolic, hematologic, and electrolyte abnormalities. As well as abscess, cellulitis, fractures, and dislocations. Patient feels much better at this time, and vital signs are normal, symptoms have improved. I did give strict instructions to return to the ED if symptoms continue or worsen, patient will otherwise follow-up with primary care physician. Patient understood instructions and agreed to plan. Disclaimer: Inadvertent spelling or grammatical errors are likely due to EHR/ dictation software use and do not reflect on the overall quality of patient care. Departure Diagnosis: Primary Impression: Anxiety Additional Impressions: Hypertension Hypertension type: essential hypertension Qualified Code: I10 - Essential hypertension Paresthesia Condition: Stable Patient Instructions: What Is a TIA?, Anxiety Reaction, Hypertension, Established PANDA MANCILLA MD Jan 17, 2017 12:07
== END 2017-01-17 11:52 | disposition home or self-care (01) ==
LOC: E/R 11:02
DX: F41.9 Anxiety disorder, unspecified (principal); I10 Essential (primary) hypertension; R20.2 Paresthesia of skin; E11.9 Type 2 diabetes mellitus without complications; E66.9 Obesity, unspecified; Z79.4 Long term (current) use of insulin; Z87.891 Personal history of nicotine dependence; Z68.34 Body mass index [BMI] 34.0-34.9, adult
CPT/HCPCS: Z7502; Z7610; 99283

== ENCOUNTER 2017-01-17 15:50 | Inpatient (IN) | payer OTHER ==
[~2017-01-17] VITALS: Ht 170.2 cm; Wt 139.0 kg
[2017-01-17 16:50] LABS: ADD SCAN DIFF NO
[2017-01-17 16:52] LABS: BASOPHIL # 0.1 10^3/ul (0.0-0.1); BASOPHILS % 0.4 % (0.0-2.0); EOSINOPHILS # 0.1 10^3/ul (0.0-0.5); EOSINOPHILS % 0.3 % (0.0-7.0); HEMATOCRIT 43.2 % (42.0-52.0); HEMOGLOBIN 15.5 g/dl (14.0-18.0); LYMPHOCYTES # 2.8 10^3/ul (0.8-2.9); LYMPHOCYTES % 14.4 % (15.0-51.0); MEAN CORPUSCULAR HEMOGLOBIN 31.6 pg (29.0-33.0); MEAN CORPUSCULAR HGB CONC 35.9 g/dl (32.0-37.0); MEAN PLATELET VOLUME 9.7 fl (7.4-10.4); MONOCYTES % 5.3 % (0.0-11.0); NEUTROPHILS % 78.9 % (39.0-77.0); PLATELET COUNT 293 10^3/UL (140-415); RED BLOOD COUNT 4.91 10^6/ul (4.70-6.10); RED CELL DISTRIBUTION WIDTH 11.9 % (11.5-14.5); WHITE BLOOD COUNT 19.1 10^3/ul (4.8-10.8)
[2017-01-17 17:08] LABS: INR 0.91; PROTIME 12.3 Sec (12.2-14.2)
--- NOTE | 2017-01-17 17:08 | RADRPT ---
PROCEDURE: CT Brain without contrast. CLINICAL INDICATION: Code stroke TECHNIQUE: A CT of the brain was performed on a [employer] 64-slice CT scanner utilizing axial imaging from the skull base through the vertex without IV contrast. Multiplanar reformatted images were made. Images were reviewed on a PACS workstation. The CTDIvol is 44.19 mGy and the DLP is 720 .23 mGycm. COMPARISON: 11/20/[address] FINDINGS: There is no intracranial hemorrhage, mass effect, or midline shift. No extra-axial fluid collection is seen. The ventricles and sulci are normal in size and configuration. The density of the brain is normal, and the monroe white matter differentiation appears well-preserved. Mild vascular calcificati ons are present of the bilateral intracranial internal carotid arteries and vertebral arteries. The visualized scalp and calvarium are normal. The bilateral orbits are normal. The bilateral para nasal sinuses, mastoid air cells and middle ear cavities are clear. IMPRESSION: 1. No evidence of acute intracranial hemorrhage, infarcts, or acute intracranial pathology. 2. Mild atherosclerotic vascular disease. A call report was made to Satish Hernandez at 01/17/2017 5:08:05 PM following the completion of the e xamination by the undersigned. RPTAT: HDC .Keysha Osorio MD, Date Time Electronically viewed and signed by .Keysha Osorio MD, on 01/17/2017 17:08 .C/
[2017-01-17 17:09] LABS: ANION GAP 18 (8-16); BLOOD UREA NITROGEN 16 mg/dl (7-20); CALCIUM 10.2 mg/dl (8.4-10.2); CARBON DIOXIDE 23 mmol/L (21-31); CHLORIDE 103 mmol/L (97-110); CREATININE 0.94 mg/dl (0.61-1.24); GLUCOSE 305 mg/dl (70-220); PARTIAL THROMBOPLASTIN TIME 27.5 Sec (25.0-35.0); POTASSIUM 4.6 mmol/L (3.5-5.1); SODIUM 139 mmol/L (135-144)
[2017-01-17 17:33] LABS: TROPONIN-I < 0.012 ng/ml (0.00-0.12)
[2017-01-17] MEDS ORDERED: IODIXANOL LOCM 100 ML BTL ONE (17:35)
[2017-01-17] MEDS ORDERED: SOD CHLORIDE 0.9% 100 ML ONE (17:35)
--- NOTE | 2017-01-17 17:55 | RADRPT ---
PROCEDURE: XR Chest. CLINICAL INDICATION: Stroke TECHNIQUE: Anterior chest x-ray. COMPARISON: 11/20/2016 FINDINGS: The lungs are clear. No pleural effusion identified. There is no evidence of pneumothorax. There is atherosclerotic calcification of the aorta. The mediastinum is mildly widened at 10 cm. The heart size is large. The soft tissues are normal. Osseous structures are unremarkable. IMPRESSION: 1. No acute disease is seen in the chest. 2. Cardiomegaly with a widened mediastinum, likely due to tortuous aorta, unchanged. RPTAT: QQ .Bill Noonan MD, Date Time Electronically viewed and signed by .Bill Noonan MD, on 01/17/2017 17:54 .M/
--- NOTE | 2017-01-17 18:15 | ERA ---
ER Documentation Chief Complaint Date/Time DATE: 01/17/17 TIME: 18:11 Chief Complaint LEFT SIDED WEAKNESS. WAS IN ED FOR SAME. REFUSED [place] HPI 46-year-old male prior history of stroke with residual left-sided weakness who presents to the emergency room with left-sided weakness. The patient is an exquisitely poor and difficult historian. He is extremely anxious and refuses to provide information at times. It appears he was here earlier today for weakness but did not want care and was discharged. The patient now states that his weakness to his left upper and lower extremity as well as face is worse and he is having difficulty seeing out of his left eye. He is not sure of the time of onset of the symptoms. Initially he said 2 PM yesterday then several hours ago but his story continues to change during his ER course. ROS All systems reviewed and are negative except as per history of present illness. Medications Home Meds Active Scripts Ibuprofen* (Motrin*) 600 Mg Tab, 600 MG PO Q6, #30 TAB Prov:BEKAH ARCHER 11/20/16 Ibuprofen* (Motrin*) 600 Mg Tab, 600 MG PO Q6H Y for PAIN AND OR ELEVATED TEMP, #30 TAB Prov:JIMBO DE LA CRUZ MD 11/10/16 Diazepam* (Valium*) 5 Mg Tablet, 5 MG PO Q8, #10 TAB Prov:HUNTER CARBALLO MD 10/01/16 Tramadol HCl (Tramadol HCl) 50 Mg Tablet, 50 MG PO Q4 Y for PAIN, #15 TAB Prov:HUNTER CARBALLO MD 10/01/16 Ibuprofen* (Motrin*) 800 Mg Tab, 800 MG PO Q6, #30 TAB Prov:HUNTER CARBALLO MD 10/01/16 Ibuprofen* (Motrin*) 800 Mg Tab, 800 MG PO Q6, #30 TAB Prov:MARIBEL COATS PA-C 09/24/16 Amoxicillin* (Amoxicillin*) 500 Mg Cap, 500 MG PO BID for 7 Days, CAP Prov:MARIBEL COATS PA-C 09/24/16 Ibuprofen* (Motrin*) 600 Mg Tab, 600 MG PO Q6H Y for PAIN for 7 Days, TAB Prov:MIKE RIOS PA-C 08/18/16 Ibuprofen* (Motrin*) 800 Mg Tab, 800 MG PO Q6, #20 TAB Prov:HUNTER CARBALLO MD 06/01/16 Reported Medications Losartan Potassium* (Losartan Potassium*) 50 Mg Tablet, 50 MG PO DAILY, TAB 09/05/16 Ergocalciferol* (Drisdol* (Vitamin D2)) 50,000 Unit Capsule, 19035 UNIT PO Q7D, CAP 06/18/16 Losartan Potassium* (Losartan Potassium*) Unknown Strength Tablet, MG PO DAILY, TAB 06/18/16 Metoprolol Succinate* (Toprol XL*) Unknown Strength Tab.er.24h, MG PO DAILY, # 30 TAB 06/18/16 Insulin Lispro (Humalog) 100 Unit/1 Ml Cartridge, 22 UNIT SQ BEFORE MEALS 06/18/16 Insulin Glargine* (Lantus*) 100 Unit/Ml Soln, 24 UNIT SC QHS, #1 VIAL 06/18/16 Allergies Allergies: Coded Allergies: acetaminophen (Unverified Allergy, Unknown, 09/05/16) PATIENT HAS ALLERGY FROM ANY OPIOID MEDICATIONS codeine (Unverified Allergy, Unknown, 09/05/16) PATIENT HAS ALLERGY FROM ANY OPIOID MEDICATIONS hydrocodone (Unverified Allergy, Unknown, 09/05/16) PATIENT HAS ALLERGY FROM ANY OPIOID MEDICATIONS morphine (Unverified Allergy, Unknown, 09/05/16) PATIENT HAS ALLERGY FROM ANY OPIOID MEDICATIONS PMhx/Soc History of Surgery: No Anesthesia Reaction: No Hx Neurological Disorder: Yes (CVA) Hx Respiratory Disorders: No Hx Cardiac Disorders: Yes (hypertension and high cholesterol) Hx Psychiatric Problems: Yes (ANXIETY) Hx Miscellaneous Medical Probl: Yes (DM) Hx Alcohol Use: Yes (occasionaly) Hx Substance Use: Yes (marijuana occasionaly) Hx Tobacco Use: No FmHx Family History: No diabetes Physical Exam Vitals Vital Signs Date Time Temp Pulse Resp B/P Pulse Ox O2 Delivery O2 Flow Rate FiO2 01/17/17 16:05 98.3 94 19 131/70 96 Physical Exam General: Anxious, malodorous, obese Head: Normocephalic, atraumatic. Eyes: Pupils equally reactive, EOM intact ENT: Moist mucous membranes Neck: Supple, no lymphadenopathy Respiratory: Lungs clear bilaterally, no distress Cardiovascular: RRR, no murmurs, rubs, or gallops Abdominal: Soft, non-tender, non-distended, no peritoneal signs : Deferred MSK: No edema, no unilateral swelling, left-sided hemiparesis with worsening weakness to left upper extremity. Neurologic: Alert and oriented, left-sided hemiparesis with facial droop. Unable to assess vision given the patient is poorly cooperative. Skin: No rash Psych: Normal mood Result Diagram: 01/17/17 1640 01/17/17 1640 Results 24 hrs Laboratory Tests Test 01/17/17 16:40 White Blood Count 19.110^3/ul Red Blood Count 4.9110^6/ul Hemoglobin 15.5g/dl Hematocrit 43.2% Mean Corpuscular Volume 88.0fl Mean Corpuscular Hemoglobin 31.6pg Mean Corpuscular Hemoglobin Concent 35.9g/dl Red Cell Distribution Width 11.9% Platelet Count 17401^3/UL Mean Platelet Volume 9.7fl Neutrophils % 78.9% Lymphocytes % 14.4% Monocytes % 5.3% Eosinophils % 0.3% Basophils % 0.4% Nucleated Red Blood Cells % 0.0/100WBC Neutrophils # 15.010^3/ul Lymphocytes # 2.810^3/ul Monocytes # 1.010^3/ul Eosinophils # 0.110^3/ul Basophils # 0.110^3/ul Nucleated Red Blood Cells # 0.010^3/ul Prothrombin Time 12.3Sec Prothrombin Time Ratio 1.0 INR International Normalized Ratio 0.91 Activated Partial Thromboplast Time 27.5Sec Sodium Level 139mmol/L Potassium Level 4.6mmol/L Chloride Level 103mmol/L Carbon Dioxide Level 23mmol/L Anion Gap 18 Blood Urea Nitrogen 16mg/dl Creatinine 0.94mg/dl Glucose Level 305mg/dl Hemoglobin A1c 9.4% Calcium Level 10.2mg/dl Troponin I < 0.012ng/ml Current Medications Medications (Trade) Dose Ordered Sig/Lore Route PRN Reason Start Time Stop Time Status Last Admin Dose Admin IV Flush 10 ml 10 ml STK-MED ONCE .ROUTE 01/17/17 17:35 01/17/17 17:36 DC 01/17/17 17:35 Sodium Chloride (NS) 100 ml @ ud STK-MED ONCE .ROUTE 01/17/17 17:35 01/17/17 17:36 DC 01/17/17 17:35 Iodixanol (Visipaque Locm) 100 ml STK-MED ONCE .ROUTE 01/17/17 17:35 01/17/17 17:36 DC 01/17/17 17:35 Aspirin (Aspirin) 324 mg ONCE ONCE PO 01/17/17 19:00 01/17/17 19:01 DC Ondansetron HCl (Zofran Inj) 4 mg ER BRIDGE PRN IV NAUSEA AND/OR VOMITING 01/17/17 19:30 01/18/17 19:29 Procedures/MDM EKG, MONITORS, & DIAGNOSTIC IMAGING: EKG: I reviewed and interpreted a 12-lead EKG. Rhythm: Normal sinus rhythm Ectopy: None Arrhythmia: None Intervals: No abnormalities ST segments: No elevations or depressions T waves: No contiguous inversions Interpretation: No acute cardiac ischemia Chest x-ray: I reviewed and interpreted a 1 view of the chest Mediastinum: No enlargement Cardiac silhouette: No cardiomegaly Airspace: Clear lung landry bilaterally without evidence of pneumothorax Bones: No evidence of fracture Interpretation: No acute cardiopulmonary process CT Brain: No acute intracranial process CTA Head and Neck: No acute process per radiologist wet read LAB INTERPRETATION: Leukocytosis, hyperglycemia MEDICAL DECISION MAKING: The patient is a very difficult historian. This makes trying to identify his time of onset extremely difficult. The patient cannot give an adequate history to define last known normal. However, the patient does have what appears to be worsening deficits the left upper and lower extremity with facial droop. Concern for subacute stroke. A stroke code was initiated. ER COURSE: Stroke assessment and timing: Onset of symptoms: Unknown, delayed history provided by family member possibly 1 :30 AM Arrival to ED: 1550 Stroke code activation: [address] scan: See nursing documentation Patient returns from CT: See nursing documentation Initial neurology evaluation: See nursing documentation NIHSS: 9 TPA decision-making: The patient is not a TPA candidate given that he cannot clarify his time of onset. The risks of TPA outweigh the benefits. Stroke neurologist on-call: Dr. Ball Critical Care Note: Total time: 55 Indication/Organ System Threat: Acute neurologic deficit and stroke code activation that requires emergent evaluation and assessment to prevent neurologic compromising collapse. I spent the above amount of critical care time with the patient, not including billable procedures. This included chart review, consultations, repeat bedside evaluations, and titration of appropriate medications to prevent cardiopulmonary or respiratory collapse. Aspirin provided after negative imaging prior to hospitalization. Leukocytosis is nonspecific without source. Consider stress response. I kept the patient and/or family informed of laboratory and diagnostic imaging results throughout the emergency room course. DISPOSITION PLAN: Telemetry admission CONSULTATION: Accepting care team and consultations: I discussed the current laboratory data, diagnostic imaging and emergency care provided. Admitting team: Dr. Tyler Admitting team indication: Insurance directed Departure Diagnosis: Primary Impression: Stroke Qualified Code: I63.9 - Cerebrovascular accident (CVA), unspecified mechanism Additional Impressions: Hemiparesis affecting left side as late effect of stroke Leukocytosis Qualified Code: D72.829 - Leukocytosis, unspecified type Condition: Stable PATITO OVIEDO MD Jan 17, 2017 18:14
--- NOTE | 2017-01-17 18:47 | RADRPT ---
PROCEDURE: CTA Neck. CLINICAL INDICATION: Possible stroke TECHNIQUE: The study was performed utilizing a GE 64-slice multidetector CT scanner. Direct spiral 0.625 mm axial sections were obtained through the neck with the use of 100 cc of Visipaque 320 non ionic intravenous contrast material. Coronal and sagittal as well as maximal intensity projection r eformations were obtained. 3-D images were made. The images were reviewed on a PACS workstation. Th e total CTDIvol is 93.39 mGy and the DLP is 1121.94 mGy-cm. COMPARISON: No prior studies are available for comparison. FINDINGS: The origins of the great vessels off the aortic arch are patent and normal in caliber without signif icant stenosis. 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 The common carotid arteries, carotid bulbs, and internal carotid arteries are normal in appearan ce without significant atherosclerotic plaque or stenosis. Mild atherosclerotic plaque is present at the bilateral internal carotid artery bulbs. No hemodynamically significant stenosis is noted of t he right internal carotid artery. In accordance with the NASCET criteria approximately 35% stenosis is present of the left internal carotid artery origin. Normal opacification is noted distally in t he bilateral internal carotid arteries. The vertebral arteries are also patent and normal in caliber bilaterally. Mild atherosclerotic vascular disease is present in the distal bilateral intracranial portions of the vertebral arteries. There is no evidence of a hemodynamically significant stenosis or dissection. IMPRESSION: 1. Normal variant anatomy of the aortic arch and the origins of the great vessels as described abov e. 2. No hemodynamically significant stenosis of the bilateral common carotid arteries and the bilater al external carotid arteries and right internal carotid artery. 3. In accordance with the NASCET criteria, approximately 35% stenosis is present of the origin of t he left internal carotid artery. 4. Mild atherosclerotic vascular disease as described above. RPTAT: HDC .Keysha Osorio MD, Date Time Electronically viewed and signed by .Keysha Osorio MD, MD on 01/17/2017 18:47 .C/
--- NOTE | 2017-01-17 18:48 | CONS ---
DATE OF ADMISSION: 01/17/2017 DATE OF CONSULTATION: 01/17/2017 HISTORY OF PRESENT ILLNESS: This is a 46-year-old man with a baseline of ischemic stroke with left- sided face, arm and leg weakness who comes in with acute onset worsening of left face, arm and leg w eakness. He was watching TV today for an unclear length of time on the order of more than 1 hour, i ncluding a nap and when he tried to get up, he was unable to because he was so weak and he fell down and hit his head. Therefore, the last known well time is unclear. No new symptoms. No nausea, vo miting. Negative review of systems except for recent diarrhea. Blood pressure 116/84. NIH stroke scale is 2 for left-sided facial droop, 4 for left arm weakness, 4 for left leg weakness. Sensation, he states, is intact on both sides. CT head negative for acute changes. ASSESSMENT AND PLAN: A 46-year-old man old ischemic stroke with baseline left-sided weakness who co mplained of worsening of old stroke symptoms with an unknown last known well time. Given unknown las t known well time, he is not a candidate for tissue plasminogen activator; however, recommend a stat CT angiogram of the head and neck to evaluate for a large vessel occlusion. If a CT angiogram is n egative, then he is not a candidate for endovascular treatment and should be admitted for medical ma nagement of acute ischemic stroke, including a swish and swallow, aspirin 81 mg, statin 80 mg, permi ssive hypertension to treat only systolic blood pressure greater than 220 or diastolic blood pressur e greater than 110 and an MRI brain with MRA head and within the next 24 hours. Dictated By: CEFERINO AMEZCUA/NTS Conf#: [id number] DID#: [id number]
--- NOTE | 2017-01-17 19:00 | RADRPT ---
PROCEDURE: CTA Brain. CLINICAL INDICATION: Possible stroke like symptoms TECHNIQUE: The study was performed utilizing a GE 64-slice multidetector CT scanner. Direct spiral 0.65 mm axial sections were obtained through the intracranial vasculature with the use of 100 cc of Visipaque 320 nonionic intravenous contrast material. Coronal and sagittal MPRs as well as maximal intensity projection reformations were obtained. The images were reviewed on a PACS workstation. Th e CTDIvol is 93.39 mGy and the DLP is 1121.94 mGycm. COMPARISON: CT angiogram of the vessels of the neck same date FINDINGS: The internal carotid arteries are patent and normal in caliber. The anterior cerebral and middle cer ebral arteries are patent and normal in caliber. Mild vascular calcifications are present of the susan ateral cavernous internal carotid arteries. The vertebral arteries, basilar artery, superior cerebel lar arteries, and posterior cerebral arteries are all normal in appearance. Vascular calcifications without significant stenosis is present of the intracranial bilateral vertebral arteries. The 2 cindy tebral arteries join to form the basilar artery. Normal bilateral superior cerebellar arteries are present. Attenuation and moderate stenosis of the left greater than right P1-2 junction is present . <No aneurysm is identified. No vascular malformation is seen. IMPRESSION: 1. No evidence for acute thrombus or evidence for acute hemodynamically significant stenosis. 2. Attenuation and moderate stenosis of the bilateral P1 to posterior cerebral artery junctions. 3. Consider MRI brain as clinically indicated A call report was made to Satish Hernandez at 01/17/2017 6:59:38 PM following the completion of the e xamination by the undersigned. RPTAT: HDC .Keysha Osorio MD, MD Date Time Electronically viewed and signed by .Keysha Osorio MD, MD on 01/17/2017 18:59 .C/
[2017-01-17] MEDS ORDERED: ONDANSETRON 4 MG INJ IV PRN ×2 (19:30→21:00)
[2017-01-17 20:00] VITALS: BP 169/86; RESP 20
[2017-01-17] MEDS: ASPIRIN 81 MG TAB PO ONE ×2 (20:02→20:08)
[2017-01-17 21:00] VITALS: BP 156/74; PULSE 85; RESP 18; Ht 170.2 cm; Wt 139.0 kg
[2017-01-17] MEDS ORDERED: ALBUTEROL/IPRATROPIUM (NEB) 3 ML AMP HHN PRN (21:00)
[2017-01-17] MEDS ORDERED: DOCUSATE SODIUM 100 MG CAP PO PRN (21:00)
[2017-01-17] MEDS ORDERED: morphine 2 MG INJ IV PRN (21:00)
[2017-01-17] MEDS ORDERED: NA PHOSPHATE/BIPHOS 133 ML ENEMA PR PRN (21:00)
[2017-01-17] MEDS ORDERED: HYDROCODONE/APAP (5/325) TAB PO PRN (21:00)
[2017-01-17] MEDS ORDERED: MAGNESIUM HYDROXIDE 30ML CUP PO PRN (21:00)
[2017-01-17] MEDS ORDERED: NITROGLYCERIN (SL) 0.4 MG TAB SL PRN (21:00)
[2017-01-17] MEDS ORDERED: NACL 0.9% 3 ML SYG IV SCH (21:00)
[2017-01-17] MEDS ORDERED: IBUPROFEN 600 MG TAB PO PRN (21:00)
[2017-01-17] MEDS ORDERED: ACETAMINOPHEN 325 MG TAB PO PRN (21:00)
[2017-01-17 21:03] VITALS: PULSE 96
[2017-01-17] MEDS: DIAZEPAM 5 MG TAB PO SCH (21:59)
[2017-01-17] MEDS: SOD CHLORIDE 0.45% 1,000 ML IV SCH (21:59)
[2017-01-17] MEDS: INSULIN GLARGINE [LANtus] 3 ML PEN SC SCH (22:09)
[2017-01-17] MEDS: HEPARIN 5,000 UNIT/0.5 ML VIAL SC SCH (22:10)
[2017-01-17] MEDS ORDERED: GLUCOSE GEL 15 GRAM TUBE PO PRN ×2 (23:00)
[2017-01-17] MEDS ORDERED: DEXTROSE 50% 50 ML SYRINGE IV PRN ×2 (23:00)
[2017-01-17] MEDS ORDERED: GLUCOSE GEL 15 GRAM TUBE BUCCAL PRN (23:00)
[2017-01-17] MEDS ORDERED: GLUCAGON 1 MG INJ IM PRN (23:00)
[2017-01-18] VITALS (13 sets, daily range): BP systolic 103–171; BP diastolic 49–99; PULSE 78–94; RESP 15–19
[2017-01-18] MEDS: INSULIN ASPART [NOVOLOG] 3 ML PEN SC SCH ×4 (00:04→17:37)
[2017-01-18] MEDS: LORAZEPAM 2 MG INJ IV PRN ×2 (02:13→22:02)
[2017-01-18 02:47] LABS: ADD UMIC YES; URINE BILIRUBIN (Dip) NEGATIVE (NEGATIVE); URINE BLOOD (Dip) 3+ (NEGATIVE); URINE COLOR YELLOW (YELLOW); URINE GLUCOSE (Dip) NEGATIVE (NEGATIVE); URINE KETONES (Dip) NEGATIVE (NEGATIVE); URINE LEUKOCYTE ESTERASE (Dip) NEGATIVE (NEGATIVE); URINE NITRITE (Dip) NEGATIVE (NEGATIVE); URINE TOTAL PROTEIN (Dip) 4+ (NEGATIVE); URINE UROBILINOGEN (Dip) 0.2 E.U./dL (0.1-1.0)
[2017-01-18 03:00] LABS: CANNABINOIDS Negative (NEGATIVE)
[2017-01-18 03:01] LABS: BARBITURATES Negative (NEGATIVE); BENZODIAZEPINES Negative (NEGATIVE); COCAINE Negative (NEGATIVE); OPIATES Negative (NEGATIVE)
[2017-01-18 03:08] LABS: URINE RBCS >50 /HPF (0)
[2017-01-18 03:09] LABS: BACTERIA,URINE RARE; SQUAMOUS EPITHELIAL CELL,UR RARE
[2017-01-18] MEDS: PANTOPRAZOLE 40 MG INJ IV SCH (05:50)
[2017-01-18] MEDS: DIAZEPAM 5 MG TAB PO SCH (05:50)
[2017-01-18] MEDS ORDERED: PANTOPRAZOLE (EC) 40 MG TAB PO SCH (06:00)
[2017-01-18] MEDS ORDERED: traMADol 50 MG TAB PO PRN (06:30)
[2017-01-18] MEDS: ATORVASTATIN 80 MG TAB PO SCH ×2 (07:00→20:51)
[2017-01-18] MEDS: [UNRECOGNIZED DRUG - REMARK] XX SCH ×3 (07:27→23:30)
--- NOTE | 2017-01-18 07:29 | HP ---
DATE OF ADMISSION: 01/17/2017 The patient was seen and examined by me at 8:30 p.m. on 01/17/2017. CHIEF COMPLAINT: Left-sided weakness. HISTORY OF PRESENT ILLNESS: A 46-year-old male with past medical history of type 2 diabetes, hypert ension, depression, posttraumatic stress disorder, arthritis, TIA x4 in the past, CVA 3 years ago, isela shultz presents with left-sided weakness symptoms. Most of the information obtained from ER documentati on as the patient is a poor historian and is unable to provide a full HPI at this time. Apparently the patient was in the ER earlier today but wanted to leave AMA. He was present there for weakness symptoms, and before the patient could leave, apparently there was a code stroke that was called, an d teleneurologist saw the patient but determined that the patient was not a candidate for TPA despit e his symptoms of ongoing left-sided weakness and facial droop. He did have a CTA head and neck in the ER as well as a head CT that did not show any signs of any acute thrombosis or any hemodynamical ly significant stenosis. Again, his head CT appeared to be negative for hemorrhage, infarctions, or other mass effects. The patient is still having left-sided and is being admitted now. REVIEW OF SYSTEMS: Full review of systems could not be obtained because of what was mentioned above in the HPI. The patient was last here at our hospital from 06/18/2016 to 06/19/2016. At that radha e, he was treated for TIA. PAST MEDICAL HISTORY: As stated above. ALLERGIES: 1. ACETAMINOPHEN. 2. CODEINE. 3. HYDROCODONE. 4. MORPHINE. MEDICATIONS AT HOME: Include the following 1. Losartan 50 mg daily. 2. Toprol-XL unknown dose. 3. Valium 5 mg q. 8 hours. 4. Motrin 600 mg p.o. q. 6 hours p.r.n. 5. Tramadol 50 mg q. 4 hours p.r.n. 6. Lantus 24 units subcu at bedtime. 7. Humalog insulin 22 units before meals. 8. Vitamin D2 50,000 units q. weekly. PAST SURGICAL HISTORY: None. SOCIAL HISTORY: Occasional alcohol use. Smokes marijuana occasionally. Denies any smoking history . FAMILY HISTORY: Noncontributory. PHYSICAL EXAMINATION: VITAL SIGNS: T-max 98.3, pulse 94, respirations 19, blood pressure 131/70, saturating at 96% on amber m air. GENERAL: The patient is lying in bed, just answers yes and no, but goes back to sleep. Otherwise, no acute distress. HEENT: Pupils equal, round, react to light. Extraocular muscles are intact. He has some mild left -sided facial droop noted. NECK: Supple, no thyromegaly. LUNGS: Clear to auscultation bilaterally. CARDIOVASCULAR: S1, S2 heard. No rubs or gallops. ABDOMEN: Soft, nontender, nondistended. Normal bowel sounds. No rebound or guarding. MUSCULOSKELETAL: No lower extremity edema bilaterally. NEUROLOGIC: He has got 0/5 strength in the left upper extremity. He has got a mild facial droop on the left side. Gait was not assessed. He has got about 2/5 strength in the left lower extremity. Otherwise, the right side is 5/5 strength in the upper right extremity and lower right extremity as well. LABORATORIES: WBC 19.1, hemoglobin 15.5, hematocrit 43.2, platelets 293. Basic metabolic panel is normal except sugar is 305. Troponin is negative x1. I mentioned the head CT results in the HPI an d the head and neck CTA results in the HPI. Chest x-ray shows no acute disease in the chest. UA sh ows negative nitrites, negative leukocyte esterase. Coags are normal. U-tox is negative ASSESSMENT AND PLAN: The patient is a 46-year-old male coming in with left-sided weakness symptoms, signs of stroke with a prior history of stroke and transient ischemic in the past with a history of diabetes and hypertension 1. Left-sided weakness. Again, signs of positive stroke. Admit the patient to telemetry floor. W e will get an MRI of the brain. He already had CTA head and neck performed. He had echocardiogram as well. Do neuro checks every 4 hours. Put him on high dose aspirin as well, Lipitor as well. Ge t a neurology consult as well. Get PT, OT, and speech therapy consults as well and a neurology cons ult. Check TSH, A1c, and lipid panel. Allow for permissive hypertension at this time. 2. Type 2 diabetes. Again, check A1c, put him on sliding scale, and continue his home insulin medi cines. 3. Hypertension. Again, see #1. Allow for permissive hypertension at that time. Hydralazine 10 m g IV q. 6 hours p.r.n. systolic greater than 220. 4. History of anxiety, depression, and PTSD. He will be on Ativan p.r.n. No present issues. 5. History of arthritis. Continue to monitor for now. 6. Gastrointestinal prophylaxis. He will be on proton pump inhibitor. 7. Deep venous thrombosis prophylaxis. He will be on heparin subq. Dictated By: OTIS JERRY Conf#: [id number] DID#: [id number]
[2017-01-18] MEDS ORDERED: INSULIN LISPRO 22 UNIT SQ SCH (07:30)
[2017-01-18] MEDS ORDERED: INSULIN ASPART [NOVOLOG] 3 ML PEN SC SCH (07:30)
[2017-01-18 07:42] LABS: ADD SCAN DIFF NO
[2017-01-18 07:48] LABS: BASOPHIL # 0.1 10^3/ul (0.0-0.1); BASOPHILS % 0.5 % (0.0-2.0); EOSINOPHILS # 0.2 10^3/ul (0.0-0.5); EOSINOPHILS % 1.4 % (0.0-7.0); HEMATOCRIT 40.8 % (42.0-52.0); HEMOGLOBIN 14.1 g/dl (14.0-18.0); LYMPHOCYTES # 3.7 10^3/ul (0.8-2.9); LYMPHOCYTES % 32.3 % (15.0-51.0); MEAN CORPUSCULAR HEMOGLOBIN 30.9 pg (29.0-33.0); MEAN CORPUSCULAR HGB CONC 34.6 g/dl (32.0-37.0); MEAN CORPUSCULAR VOLUME 89.5 fl (82.0-101.0); MEAN PLATELET VOLUME 9.7 fl (7.4-10.4); MONOCYTE # 0.7 10^3/ul (0.3-0.9); MONOCYTES % 6.2 % (0.0-11.0); NEUTROPHIL # 6.8 10^3/ul (1.6-7.5); PLATELET COUNT 259 10^3/UL (140-415); RED BLOOD COUNT 4.56 10^6/ul (4.70-6.10); RED CELL DISTRIBUTION WIDTH 12.1 % (11.5-14.5); WHITE BLOOD COUNT 11.5 10^3/ul (4.8-10.8)
[2017-01-18 07:55] LABS: CALCIUM 9.4 mg/dl (8.4-10.2); CHOL/HDL RATIO 5.6 RATIO; CREATININE 0.66 mg/dl (0.61-1.24); MAGNESIUM 1.5 mg/dl (1.7-2.5); POTASSIUM 3.9 mmol/L (3.5-5.1)
[2017-01-18 08:26] LABS: THYROID STIMULATING HORMONE 3.08 MIU/L (0.465-4.680)
[2017-01-18] MEDS: ASPIRIN (EC) 325 MG TAB PO SCH (09:00)
[2017-01-18] MEDS: SOD CHLORIDE 0.45% 1,000 ML IV SCH ×2 (09:18→23:20)
[2017-01-18] MEDS: HEPARIN 5,000 UNIT/0.5 ML VIAL SC SCH ×2 (09:18→20:50)
--- NOTE | 2017-01-18 12:51 | CONS ---
Date/Time of Note Date/Time of Note DATE: 01/18/17 TIME: 12:37 Assessment/Plan Assessment/Plan Chief Complaint/Hosp Course Left-sided weakness Problems: Additional Assessment/Plan 46-year-old male with past medical history of type 2 diabetes, hypertension, depression, posttraumatic stress disorder, arthritis, TIA x4 in the past, CVA 3 years ago, who presents with left-sided weakness symptoms. A code stroke that was called, and teleneurologist saw the patient but determined that the patient was not a candidate for TPA despite his symptoms of ongoing left-sided weakness and facial droop. He did have a CTA head and neck in the ER as well as a head CT that did not show any signs of any acute thrombosis or any hemodynamically significant stenosis. Examination shows left hemiparesis and left facial droop with left Babinski. Apparently he had an acute stroke on right subcortical region causing left hemiparesis. Plan [address] scan of the brain as patient is claustrophobic and cannot have MRI 2 carotid ultrasound 3 echocardiogram 4 continue aspirin and atorvastatin 5 continue neuro check every 4 hours 6 PT/OT/speech evaluation [address] Dr. Espinosa will follow in a.m. Consultation Date/Type/Reason Admit Date/Time Jan 17, 2017 at 19:03 Date of Consultation: Jan 18, 2017 Type of Consultation: Neurology Reason for Consultation Left-sided weakness Referring Provider: DEEPAK MESSER Hx of Present Illness 46-year-old male with past medical history of type 2 diabetes, hypertension, depression, posttraumatic stress disorder, arthritis, TIA x4 in the past, CVA 3 years ago, who presents with left-sided weakness symptoms. A code stroke that was called, and teleneurologist saw the patient but determined that the patient was not a candidate for TPA despite his symptoms of ongoing left-sided weakness and facial droop. He did have a CTA head and neck in the ER as well as a head CT that did not show any signs of any acute thrombosis or any hemodynamically significant stenosis. Constitutional: no complaints Eyes: no complaints ENT: no complaints Respiratory: no complaints Cardiovascular: no complaints Gastrointestinal: no complaints Genitourinary: no complaints Musculoskeletal: no complaints Skin: no complaints Neurologic: focal-weakness Endocrine: no complaints Lymphatic: no complaints Psychological: no complaints Immunologic: no complaints Past Medical History Medical History: high cholesterol, hypertension, other (Previous stroke, obesity) Past Surgical History Past Surgical Hx: no surgical history Family History Significant Family History: no pertinent family hx Social History Alcohol Use: none Smoking Status: Never smoker Exam/Review of Systems Vital Signs Vitals Vital Signs Date Time Temp Pulse Resp B/P Pulse Ox O2 Delivery O2 Flow Rate FiO2 01/18/17 12:00 94 01/18/17 11:47 98.5 19 171/99 94 01/17/17 21:00 Room Air Intake and Output 01/17/17 01/17/17 01/18/17 15:00 23:00 07:00 Intake Total 600 ml Output Total 600 ml Balance 0 ml Exam Constitutional: alert, oriented, well developed Psych: nl mood/affect, no complaints Head: atraumatic, normocephalic Eyes: EOMI, nl conjunctiva, nl lids, nl sclera ENMT: mucosa pink and moist, nl external ears & nose, nl lips & teeth, nl nasal mucosa & septum Neck: non-tender, supple Respiratory: clear to auscultation, normal air movement Cardiovascular: nl pulses, regular rate and rhythm Gastrointestinal: nl liver, spleen, non-tender, soft Extremities: normal pulses Neurological: other (Alert and awake, follows all commands, left facial droop, left hemiparesis, unable to raise his arm in legs against gravity, cannot squeeze my fingers or wiggle his toes, left Babinski) Results Result Diagram: 01/18/17 0720 01/18/17 0720 Results 24 hrs Laboratory Tests Test 01/17/17 16:40 01/17/17 17:10 01/17/17 22:01 01/17/17 23:00 White Blood Count 19.1 #H Red Blood Count 4.91 Hemoglobin 15.5 Hematocrit 43.2 Mean Corpuscular Volume 88.0 Mean Corpuscular Hemoglobin 31.6 Mean Corpuscular Hemoglobin Concent 35.9 Red Cell Distribution Width 11.9 Platelet Count 293 Mean Platelet Volume 9.7 # Neutrophils % 78.9 H Lymphocytes % 14.4 L Monocytes % 5.3 Eosinophils % 0.3 Basophils % 0.4 Nucleated Red Blood Cells % 0.0 Neutrophils # 15.0 H Lymphocytes # 2.8 Monocytes # 1.0 H Eosinophils # 0.1 Basophils # 0.1 Nucleated Red Blood Cells # 0.0 Prothrombin Time 12.3 Prothrombin Time Ratio 1.0 INR International Normalized Ratio 0.91 Activated Partial Thromboplast Time 27.5 Sodium Level 139 Potassium Level 4.6 Chloride Level 103 Carbon Dioxide Level 23 Anion Gap 18 H Blood Urea Nitrogen 16 Creatinine 0.94 Glucose Level 305 H Hemoglobin A1c 9.4 H Calcium Level 10.2 Troponin I < 0.012 Free Thyroxine 1.30 Bedside Glucose 223 H Urine Color YELLOW Urine Clarity HAZY Urine pH 6.0 Urine Specific [place] 1.020 Urine Ketones NEGATIVE Urine Nitrite NEGATIVE Urine Bilirubin NEGATIVE Urine Urobilinogen 0.2 E.U./dL Urine Leukocyte Esterase NEGATIVE Urine Microscopic RBC >50 Urine Microscopic WBC 0-2 Urine Squamous Epithelial Cells RARE Urine Bacteria RARE Urine Hemoglobin 3+ H Urine Glucose NEGATIVE Urine Total Protein 4+ H Urine Opiates Screen Negative Urine Barbiturates Negative Urine Amphetamines Screen Negative Urine Benzodiazepines Screen Negative Urine Cocaine Screen Negative Urine Cannabinoids Negative Test 01/17/17 23:58 01/18/17 05:13 01/18/17 07:20 01/18/17 11:57 Bedside Glucose 193 205 184 White Blood Count 11.5 #H Red Blood Count 4.56 L Hemoglobin 14.1 Hematocrit 40.8 L Mean Corpuscular Volume 89.5 Mean Corpuscular Hemoglobin 30.9 Mean Corpuscular Hemoglobin Concent 34.6 Red Cell Distribution Width 12.1 Platelet Count 259 Mean Platelet Volume 9.7 Neutrophils % 59.0 Lymphocytes % 32.3 Monocytes % 6.2 Eosinophils % 1.4 Basophils % 0.5 Nucleated Red Blood Cells % 0.0 Neutrophils # 6.8 Lymphocytes # 3.7 H Monocytes # 0.7 Eosinophils # 0.2 Basophils # 0.1 Nucleated Red Blood Cells # 0.0 Sodium Level 141 Potassium Level 3.9 Chloride Level 104 Carbon Dioxide Level 26 Anion Gap 15 Blood Urea Nitrogen 15 Creatinine 0.66 Glucose Level 173 # Hemoglobin A1c 9.1 H Calcium Level 9.4 Phosphorus Level 4.0 Magnesium Level 1.5 L Triglycerides Level 142 Cholesterol Level 163 LDL Cholesterol, Calculated 106 HDL Cholesterol 29 Cholesterol/HDL Ratio 5.6 Thyroid Stimulating Hormone (TSH) 3.080 Medications Medications Current Medications Ondansetron HCl (Zofran Inj) 4 mg Q6H PRN IV NAUSEA AND/OR VOMITING; Start 01/17 at 21:00 Docusate Sodium (Colace) 100 mg Q12H PRN PO CONSTIPATION; Start 01/17/17 at 21: 00 Magnesium Hydroxide (Milk Of Mag) 30 ml DAILY PRN PO CONSTIPATION; Start at 21:00 Sodium Biphosphate/ Sodium Phosphate (Fleet Enema) 133 ml DAILY PRN [place] CONSTIPATION; Start 01/17/17 at 21:00 Heparin Sodium (Porcine) 5000 unit 5,000 unit Q12 SC Last administered on 09:18; Admin Dose 5,000 UNIT; Start 01/17/17 at 21:00 Sodium Chloride (1/2 NS) 1,000 ml @ 75 mls/hr [id number] IV Last administered on 01/18/17 09:18; Admin Dose 75 MLS/HR; Start 01/17/17 at 20:40 Lorazepam (Ativan) 0.5 mg Q6H PRN IV ANXIETY Last administered on 01/18/17 02: 13; Admin Dose 0.5 MG; Start 01/17/17 at 21:00 Hydralazine HCl (Apresoline) 10 mg Q6H PRN IV ELEVATED BLOOD PRESSURE; Start at 21:00 Nitroglycerin (Nitroglycerin (Sl Tab) 0.4 Mg) 1 tab Q5M PRN SL ANGINA; Start at 21:00 Aspirin (Ecotrin) 325 mg DAILY PO ; Start 01/18/17 at 09:00 Ergocalciferol (Drisdol) 50,000 unit Q7D PO ; Start 01/17/17 at 21:00; Status UNV Ibuprofen (Motrin) 600 mg Q6H PRN PO PAIN AND OR ELEVATED TEMP; Start 01/17/17 at 21:00 Insulin Glargine (Lantus) 24 unit QHS SC Last administered on 01/17/17 22:09; Admin Dose 24 UNIT; Start 01/17/17 at 21:00 Pantoprazole (Protonix Iv) 40 mg DAILY@06 IV Last administered on 01/18/17 05: 50; Admin Dose 40 MG; Start 01/18/17 at 06:00 Insulin Aspart (Novolog Insulin Pen) NOVOLOG *MILD* ALGORI... Q6 SC Last administered on 01/18/17 12:03; Admin Dose 2 UNIT; Start 01/18/17 at 00:00 Miscellaneous Information 1 ea NOTE XX ; Start 01/17/17 at 23:00 Glucose (Glutose) 15 gm Q15M PRN PO DECREASED GLUCOSE; Start 01/17/17 at 23:00 Glucose (Glutose) 22.5 gm Q15M PRN PO DECREASED GLUCOSE; Start 01/17/17 at 23:00 Dextrose (D50w Syringe) 25 ml Q15M PRN IV DECREASED GLUCOSE; Start 01/17/17 at 23:00 Dextrose (D50w Syringe) 50 ml Q15M PRN IV DECREASED GLUCOSE; Start 01/17/17 at 23:00 Glucagon (Glucagen) 1 mg Q15M PRN IM DECREASED GLUCOSE; Start 01/17/17 at 23:00 Glucose (Glutose) 15 gm Q15M PRN BUCCAL DECREASED GLUCOSE; Start 01/17/17 at 23: 00 Tramadol HCl (Ultram) 50 mg Q6H PRN PO PAIN LEVEL 4-7; Start 01/18/17 at 06:30 Atorvastatin Calcium (Lipitor) 80 mg HS PO ; Start 01/18/17 at 07:00 Miscellaneous Information (*Order Clarification Bulletin) ERGOCALCIFEROL 50,000 UNITS ... Q8H XX ; Start 01/18/17 at 07:[address] brain 01/17/2017 IMPRESSION: 1. No evidence of acute intracranial hemorrhage, infarcts, or acute intracranial pathology. 2. Mild atherosclerotic vascular disease. A call report was made to Satish Hernandez at 01/17/2017 5:08:05 PM following the completion of the examination by the undersigned. RPTAT: HDC .Keysha Osorio MD, MD Date Time Electronically viewed and signed by .Keysha Osorio MD, MD on 01/17/2017 17: 08 CT angiogram of the brain 01/17/2017 IMPRESSION: 1. No evidence for acute thrombus or evidence for acute hemodynamically significant stenosis. 2. Attenuation and moderate stenosis of the bilateral P1 to posterior cerebral artery junctions. 3. Consider MRI brain as clinically indicated A call report was made to Satish Hernandez at 01/17/2017 6:59:38 PM following the completion of the examination by the undersigned. RPTAT: HDC .Keysha Osorio MD, Date Time Electronically viewed and signed by .Keysha Osorio MD, on 01/17/2017 18: 59 CT angiogram of the neck 01/17/2017 IMPRESSION: 1. Normal variant anatomy of the aortic arch and the origins of the great vessels as described above. 2. No hemodynamically significant stenosis of the bilateral common carotid arteries and the bilateral external carotid arteries and right internal carotid artery. 3. In accordance with the NASCET criteria, approximately 35% stenosis is present of the origin of the left internal carotid artery. 4. Mild atherosclerotic vascular disease as described above. RPTAT: HDC .Keysha Osorio MD, Date Time Electronically viewed and signed by .Keysha Osorio MD, on 01/17/2017 18: 47 JOHN PAUL STRICKLAND MD Jan 18, 2017 12:47
--- NOTE | 2017-01-18 14:49 | RADRPT ---
Echocardiogram Report Patient Name: MONTANA WILLIAMSON Gender: Male Date: 1970 Study Date: 18-Jan-2017 Health And Safety Coordinator: Rafal [facility] Location: [id number] Ref. Physician: OTIS SWAIN Quality: Technically Difficult Study Procedures: Transthoracic echocardiogram with complete 2D, M-Mode, and doppler examination. Indications: Cerebrovascular Accident. 2D/M Mode Doppler Measurement Value Normal Ranges Measurement Value Normal Ranges LVIDd 2D 5.4 3.5 - 5.6 cm AV Peak [place] 1.1 m/sec LVIDs 2D 3.8 2.1 - 4.1 cm AV Peak PG 5.3 mmHg LVPWd 2D 1.3 0.6 - 1.1 cm LVOT Peak [place] 0.8 m/sec IVSd 2D 1.3 0.6 - 1.1 cm LVOT Peak PG 2.7 mmHg AoR Diam 2D 3.1 2.0 - 3.7 cm MV E Peak Osbaldo 0.8 m/sec EDV 2D 140.4 cm3 MV A Peak [place] 1.1 m/sec ESV 2D 55.6 cm3 MV E/A 0.7 LA Dimen 2D 3.7 2.3 - 4.0 cm MV Decel Time 224 msec MV Decel [place] 4 MV E/A 0.7 Findings Left Ventricle: Overall, lower limits of normal left ventricular systolic function. Not all segments visualized. Mild concentric left ventricular hypertrophy. Mild enlargement of left ventricle cavity. Ejection fraction is visually estimated at 50 %. Tissue Doppler/Mitral Doppler indices are consistent with impaired relaxation (Stage I diastolic dysfunction). Right Ventricle: Normal right ventricular size. Normal right ventricular systolic function. Left Atrium: The left atrium is normal in size. Right Atrium: The right atrium is normal in size. Mitral Valve: Mild mitral leaflet calcification. Trace mitral regurgitation. Aortic Valve: No significant aortic stenosis or insufficiency. Aortic valve not well visualized. Tricuspid Valve: Tricuspid valve not well visualized. There is trace tricuspid regurgitation. Pulmonic Valve: Pulmonic valve not well visualized. Pericardium: Normal pericardium with no significant pericardial effusion. Aorta: Normal aortic root. IVC: Normal size and normal respiratory collapse consistent with normal right atrial pressure. Conclusions 1.Technically difficult study. 2.Overall, lower limits of normal left ventricular systolic function. Not all segments visualized. Mild concentric left ventricular hypertrophy. Mild enlargement of left ventricle cavity. Ejection fraction is visually estimated at 50 %. Tissue Doppler/Mitral Doppler indices are consistent with impaired relaxation (Stage I diastolic dysfunction). 3.Normal right ventricular size. Normal right ventricular systolic function. 4.The left atrium is normal in size. 5.The right atrium is normal in size. 6.No significant valvular stenosis or regurgitation seen. 7.Normal pericardium with no significant pericardial effusion. Electronically Signed By: Rod Mcclendon 18-Jan-2017 14:48:49 -0700 Patient Name: MONTANA WILLIAMSON Study Date: 18-Jan-2017 [id number]
[2017-01-18] MEDS ORDERED: MAGNESIUM SULFATE 2 GM/50 ML 50 ML IVPB ONE (15:30)
--- NOTE | 2017-01-18 17:45 | PN ---
DATE: 01/18/2017 TIME OF EVALUATION: 1600. SUBJECTIVE DATA: The patient remains somnolent. Wakes up to call and answers questions. Denies any pain. OBJECTIVE DATA: VITAL SIGNS: Temperature 98.5, pulse rate 85, respiratory rate 19, blood pressure 171/80, oxygen saturation 98% on room air. GENERAL: This is a morbidly obese male patient lying in bed in no apparent distress. HEENT: Head normocephalic and atraumatic. Eyes: Anicteric sclerae. Conjunctivae clear. ENT: Nasal septum is midline. Oral mucosa is dry. NECK: Supple. No JVD noticed. RESPIRATORY: Bilaterally diminished breath sounds. No adventitious breath sounds. No use of accessory muscles of respiration. CARDIAC: Regular rate and rhythm. S1 and S2 heard. ABDOMEN: Soft, nontender and nondistended. Bowel sounds hypoactive in all 4 quadrants. GENITOURINARY: The patient has a Stevens catheter in place. EXTREMITIES: No cyanosis, no clubbing, no edema. Peripheral pulses palpable. NEUROLOGIC: The patient is awake, alert and oriented. Left facial droop. Left upper extremity and left lower extremity, no movement against gravity and with no movement to commands. Sensory function intact on the left upper extremity and left lower extremity. LABORATORY AND DIAGNOSTIC DATA: WBC 11.5, hemoglobin 14.1, hematocrit 40.8, platelet count 259. Sodium 141, potassium 3.9, chloride 104, carbon dioxide 26 , anion gap 15, BUN 15, creatinine 0.66, glucose 173, calcium 9.44, phosphorus 4.0, magnesium 1.5. Hemoglobin A1c 9.1. ASSESSMENT AND PLAN: 1. Left hemiparesis. Possible acute stroke. Brain CT scan negative for any acute infarcts. A repeat CT scan ordered. The patient is claustrophobic and so no brain MRI was ordered. Status post evaluation by neurology. Pending speech therapy, occupational therapy and physical therapy evaluation. Continue statin and aspirin. 2. Type 2 diabetes mellitus. Hemoglobin A1c 9.1. Continue sliding scale insulin. 3. Dysphagia. Most probably secondary to #1. Continue n.p.o. Await speech therapy evaluation. 4. Essential hypertension. Permissive hypertension will be provided because of recent stroke. 5. Anxiety. The patient will be maintained on anxiolytics. 6. Fluid, electrolytes and nutrition. Continue n.p.o. Continue IV hydration. 7. Deep venous thrombosis prophylaxis. Subcutaneous heparin. 8. Gastrointestinal prophylaxis with proton pump inhibitors. PLAN: 1. Continue inpatient monitoring. 2. Await physical therapy, occupational therapy and speech therapy evaluation. Case discussed with Dr. Tyler. LEAH TYLER MD, AM/ILIA Conf#: [id number] DID#: [id number] MTDD
[2017-01-18] MEDS: INSULIN GLARGINE [LANtus] 3 ML PEN SC SCH (21:59)
[2017-01-19] VITALS (12 sets, daily range): BP systolic 149–173; BP diastolic 81–94; PULSE 84–95; RESP 18–21
[2017-01-19] MEDS: SOD CHLORIDE 0.45% 1,000 ML IV SCH (04:09)
[2017-01-19] MEDS: INSULIN ASPART [NOVOLOG] 3 ML PEN SC SCH ×4 (06:00→17:10)
[2017-01-19] MEDS: PANTOPRAZOLE 40 MG INJ IV SCH (06:12)
[2017-01-19] MEDS: ASPIRIN (EC) 325 MG TAB PO SCH (07:19)
[2017-01-19] MEDS: [UNRECOGNIZED DRUG - REMARK] XX SCH (07:30)
[2017-01-19 08:01] LABS: ADD SCAN DIFF NO
[2017-01-19 08:09] LABS: BASOPHIL # 0.1 10^3/ul (0.0-0.1); BASOPHILS % 0.5 % (0.0-2.0); EOSINOPHILS # 0.1 10^3/ul (0.0-0.5); EOSINOPHILS % 1.2 % (0.0-7.0); HEMATOCRIT 42.8 % (42.0-52.0); HEMOGLOBIN 14.5 g/dl (14.0-18.0); LYMPHOCYTES # 3.3 10^3/ul (0.8-2.9); LYMPHOCYTES % 29.7 % (15.0-51.0); MEAN CORPUSCULAR HEMOGLOBIN 30.5 pg (29.0-33.0); MEAN CORPUSCULAR HGB CONC 33.9 g/dl (32.0-37.0); MEAN CORPUSCULAR VOLUME 89.9 fl (82.0-101.0); MEAN PLATELET VOLUME 9.8 fl (7.4-10.4); MONOCYTE # 0.6 10^3/ul (0.3-0.9); MONOCYTES % 5.8 % (0.0-11.0); NEUTROPHIL # 6.9 10^3/ul (1.6-7.5); NEUTROPHILS % 62.3 % (39.0-77.0); PLATELET COUNT 259 10^3/UL (140-415); RED BLOOD COUNT 4.76 10^6/ul (4.70-6.10); RED CELL DISTRIBUTION WIDTH 11.9 % (11.5-14.5); WHITE BLOOD COUNT 11.1 10^3/ul (4.8-10.8)
[2017-01-19 08:26] LABS: CALCIUM 8.8 mg/dl (8.4-10.2); CREATININE 0.64 mg/dl (0.61-1.24)
[2017-01-19 08:32] LABS: MAGNESIUM 1.7 mg/dl (1.7-2.5); PHOSPHORUS 3.5 mg/dl (2.5-4.9)
[2017-01-19] MEDS: HEPARIN 5,000 UNIT/0.5 ML VIAL SC SCH ×2 (09:01→22:36)
--- NOTE | 2017-01-19 13:35 | CONS ---
Date/Time of Note Date/Time of Note DATE: 01/19/17 TIME: 13:33 Consult Date/Type/Reason Admit Date/Time Jan 17, 2017 at 19:03 Initial Consult Date 01/18/17 Type of Consultation: Neurology Reason for Consultation left hemiparesis Ordering Provider: DEEPAK MESSER Subjective symptoms remain stable continues to have left hemiparesis pending repeat Head CT Objective Vital Signs Date Time Temp Pulse Resp B/P Pulse Ox O2 Delivery O2 Flow Rate FiO2 01/19/17 13:02 91 01/19/17 11:52 98.2 20 156/93 94 01/17/17 21:00 Room Air Intake and Output 01/18/17 01/18/17 01/19/17 15:00 23:00 07:00 Intake Total 1050 ml 0 ml Output Total 500 ml 900 ml Balance 550 ml -900 ml Exam Constitutional: alert, oriented, well developed Psych: nl mood/affect, no complaints Head: atraumatic, normocephalic Eyes: EOMI, nl conjunctiva, nl lids, nl sclera ENMT: mucosa pink and moist, nl external ears & nose, nl lips & teeth, nl nasal mucosa & septum Neck: non-tender, supple Respiratory: clear to auscultation, normal air movement Cardiovascular: nl pulses, regular rate and rhythm Gastrointestinal: nl liver, spleen, non-tender, soft Extremities: normal pulses Neurological: other (Alert and awake, follows all commands, left facial droop, left hemiparesis, unable to raise his arm in legs against gravity, cannot squeeze my fingers or wiggle his toes, left Babinski) Results/Medications Result Diagram: 01/19/17 0655 01/19/17 0655 Results 24 hrs Laboratory Tests Test 01/18/17 17:36 01/18/17 21:56 01/19/17 00:49 01/19/17 06:55 Bedside Glucose 125 133 128 White Blood Count 11.1 H Red Blood Count 4.76 Hemoglobin 14.5 Hematocrit 42.8 Mean Corpuscular Volume 89.9 Mean Corpuscular Hemoglobin 30.5 Mean Corpuscular Hemoglobin Concent 33.9 Red Cell Distribution Width 11.9 Platelet Count 259 Mean Platelet Volume 9.8 Neutrophils % 62.3 Lymphocytes % 29.7 Monocytes % 5.8 Eosinophils % 1.2 Basophils % 0.5 Nucleated Red Blood Cells % 0.0 Neutrophils # 6.9 Lymphocytes # 3.3 H Monocytes # 0.6 Eosinophils # 0.1 Basophils # 0.1 Nucleated Red Blood Cells # 0.0 Sodium Level 140 Potassium Level 4.0 Chloride Level 105 Carbon Dioxide Level 24 Anion Gap 15 Blood Urea Nitrogen 15 Creatinine 0.64 Glucose Level 136 Calcium Level 8.8 Phosphorus Level 3.5 Magnesium Level 1.7 Medications Current Medications Ondansetron HCl (Zofran Inj) 4 mg Q6H PRN IV NAUSEA AND/OR VOMITING; Start 01/17 at 21:00 Docusate Sodium (Colace) 100 mg Q12H PRN PO CONSTIPATION; Start 01/17/17 at 21: 00 Magnesium Hydroxide (Milk Of Mag) 30 ml DAILY PRN PO CONSTIPATION; Start at 21:00 Sodium Biphosphate/ Sodium Phosphate (Fleet Enema) 133 ml DAILY PRN [place] CONSTIPATION; Start 01/17/17 at 21:00 Heparin Sodium (Porcine) 5000 unit 5,000 unit Q12 SC Last administered on 09:01; Admin Dose 5,000 UNIT; Start 01/17/17 at 21:00 Sodium Chloride (1/2 NS) 1,000 ml @ 75 mls/hr [id number] IV Last administered on 01/19/17 04:09; Admin Dose 75 MLS/HR; Start 01/17/17 at 20:40 Lorazepam (Ativan) 0.5 mg Q6H PRN IV ANXIETY Last administered on 01/18/17 22: 02; Admin Dose 0.5 MG; Start 01/17/17 at 21:00 Hydralazine HCl (Apresoline) 10 mg Q6H PRN IV ELEVATED BLOOD PRESSURE; Start at 21:00 Nitroglycerin (Nitroglycerin (Sl Tab) 0.4 Mg) 1 tab Q5M PRN SL ANGINA; Start at 21:00 Aspirin (Ecotrin) 325 mg DAILY PO ; Start 01/18/17 at 09:00 Ergocalciferol (Drisdol) 50,000 unit Q7D PO ; Start 01/17/17 at 21:00; Status UNV Ibuprofen (Motrin) 600 mg Q6H PRN PO PAIN AND OR ELEVATED TEMP; Start 01/17/17 at 21:00 Insulin Glargine (Lantus) 24 unit QHS SC Last administered on 01/18/17 21:59; Admin Dose 24 UNIT; Start 01/17/17 at 21:00 Pantoprazole (Protonix Iv) 40 mg DAILY@06 IV Last administered on 01/19/17 06: 12; Admin Dose 40 MG; Start 01/18/17 at 06:00 Insulin Aspart (Novolog Insulin Pen) NOVOLOG *MILD* ALGORI... Q6 SC Last administered on 01/18/17 12:03; Admin Dose 2 UNIT; Start 01/18/17 at 00:00 Miscellaneous Information 1 ea NOTE XX ; Start 01/17/17 at 23:00 Glucose (Glutose) 15 gm Q15M PRN PO DECREASED GLUCOSE; Start 01/17/17 at 23:00 Glucose (Glutose) 22.5 gm Q15M PRN PO DECREASED GLUCOSE; Start 01/17/17 at 23:00 Dextrose (D50w Syringe) 25 ml Q15M PRN IV DECREASED GLUCOSE; Start 01/17/17 at 23:00 Dextrose (D50w Syringe) 50 ml Q15M PRN IV DECREASED GLUCOSE; Start 01/17/17 at 23:00 Glucagon (Glucagen) 1 mg Q15M PRN IM DECREASED GLUCOSE; Start 01/17/17 at 23:00 Glucose (Glutose) 15 gm Q15M PRN BUCCAL DECREASED GLUCOSE; Start 01/17/17 at 23: 00 Tramadol HCl (Ultram) 50 mg Q6H PRN PO PAIN LEVEL 4-7; Start 01/18/17 at 06:30 Atorvastatin Calcium (Lipitor) 80 mg HS PO ; Start 01/18/17 at 07:00 Miscellaneous Information (*Order Clarification Bulletin) ERGOCALCIFEROL 50,000 UNITS ... Q8H XX ; Start 01/18/17 at 07:30 Assessment/Plan Chief Complaint/Hosp Course 46-year-old male with past medical history of type 2 diabetes, hypertension, depression, posttraumatic stress disorder, arthritis, TIA x4 in the past, CVA 3 years ago, who presents with left-sided weakness symptoms. A code stroke that was called, and teleneurologist saw the patient but determined that the patient was not a candidate for TPA despite his symptoms of ongoing left-sided weakness and facial droop. He did have a CTA head and neck in the ER as well as a head CT that did not show any signs of any acute thrombosis or any hemodynamically significant stenosis. Examination shows left hemiparesis and left facial droop with left Babinski. Apparently he had an acute stroke on right subcortical region causing left hemiparesis. [address] scan of the brain as patient is claustrophobic and cannot have MRI 2 carotid ultrasound- pending 3 echocardiogram- done wnl 4 continue aspirin and atorvastatin 5 continue neuro check every 4 hours 6 PT/OT/speech evaluation needs weight loss dietary modification repeat speech/swallow 7 DVT ppx Problems: HONORIO CORREA MD Jan 19, 2017 13:35
[2017-01-19] MEDS: LISINOPRIL 5 MG TAB PO SCH (15:30)
--- NOTE | 2017-01-19 15:31 | PN ---
Date/Time of Note Date/Time of Note DATE: 01/19/17 TIME: 15:20 Assessment/Plan VTE Prophylaxis VTE Prophylaxis Intervention: heparin Lines/Catheters IV Catheter Type (from Nrs): Peripheral IV Urinary Cath still in place: Yes Reason Cath still needed: other (indicate) Assessment/Plan Assessment/Plan 1. acute stroke with left hemiparesis, aspirin and lipitor, Follow up with neurology. PT/OT/speech therapy 2. Type 2 diabetes mellitus. Hemoglobin A1c 9.1. on insulins 3. Dysphagia. Most probably secondary to #1. Continue n.p.o. Follow up with speech therapy evaluation. 4. Hypertension, add lisinopril 5. Anxiety. The patient will be maintained on anxiolytics. 6. Fluid, electrolytes and nutrition. Continue n.p.o. Continue IV hydration. 7. Deep venous thrombosis prophylaxis. Subcutaneous heparin. Subjective 24 Hr Interval Summary Free Text/Dictation left sided weakness Exam/Review of Systems Vital Signs Vitals Vital Signs Date Time Temp Pulse Resp B/P Pulse Ox O2 Delivery O2 Flow Rate FiO2 01/19/17 13:02 91 01/19/17 11:52 98.2 20 156/93 94 01/17/17 21:00 Room Air Intake and Output 01/18/17 01/18/17 01/19/17 15:00 23:00 07:00 Intake Total 1050 ml 0 ml Output Total 500 ml 900 ml Balance 550 ml -900 ml Exam Constitutional: alert, oriented, well developed Psych: nl mood/affect, no complaints Head: atraumatic, normocephalic Eyes: EOMI, nl conjunctiva, nl lids ENMT: mucosa pink and moist, nl external ears & nose, nl lips & teeth, nl nasal mucosa & septum Neck: supple Respiratory: clear to auscultation, normal air movement, No congested cough, No crackles/rales, No diminished breath sounds, No intercostal retraction, No labored breathing, No other, No respirations, No tactile fremitus, No wheezing Cardiovascular: nl pulses, regular rate and rhythm, No S3, No S4, No bruits, No diastolic murmur, No edema, No gallop, No irregular rhythm, No jugular venous distention (JVD), No murmurs/extra sounds, No other, No rub, No systolic murmur Gastrointestinal: nl liver, spleen, non-tender, soft, No ascites, No bowel sounds, No distended, No firm, No hepatomegaly, No mass , No other, No rebound or guarding, No splenomegaly, No surgical scars, No tender Musculoskeletal: nl extremities to inspection 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2 Basophils % 0.5 Nucleated Red Blood Cells % 0.0 Neutrophils # 6.9 Lymphocytes # 3.3 H Monocytes # 0.6 Eosinophils # 0.1 Basophils # 0.1 Nucleated Red Blood Cells # 0.0 Sodium Level 140 Potassium Level 4.0 Chloride Level 105 Carbon Dioxide Level 24 Anion Gap 15 Blood Urea Nitrogen 15 Creatinine 0.64 Glucose Level 136 Calcium Level 8.8 Phosphorus Level 3.5 Magnesium Level 1.7 Medications Medications Current Medications Ondansetron HCl (Zofran Inj) 4 mg Q6H PRN IV NAUSEA AND/OR VOMITING; Start 01/17 at 21:00 Docusate Sodium (Colace) 100 mg Q12H PRN PO CONSTIPATION; Start 01/17/17 at 21: 00 Magnesium Hydroxide (Milk Of Mag) 30 ml DAILY PRN PO CONSTIPATION; Start at 21:00 Sodium Biphosphate/ Sodium Phosphate (Fleet Enema) 133 ml DAILY PRN [place] CONSTIPATION; Start 01/17/17 at 21:00 Heparin Sodium (Porcine) 5000 unit 5,000 unit Q12 SC Last administered on t 09:01; Admin Dose 5,000 UNIT; Start 01/17/17 at 21:00 Sodium Chloride (1/2 NS) 1,000 ml @ 75 mls/hr [id number] IV Last administered on 01/19/17 04:09; Admin Dose 75 MLS/HR; Start 01/17/17 at 20:40 Lorazepam (Ativan) 0.5 mg Q6H PRN IV ANXIETY Last administered on 01/18/17 22: 02; Admin Dose 0.5 MG; Start 01/17/17 at 21:00 Hydralazine HCl (Apresoline) 10 mg Q6H PRN IV ELEVATED BLOOD PRESSURE; Start at 21:00 Nitroglycerin (Nitroglycerin (Sl Tab) 0.4 Mg) 1 tab Q5M PRN SL ANGINA; Start at 21:00 Aspirin (Ecotrin) 325 mg DAILY PO ; Start 01/18/17 at 09:00 Ergocalciferol (Drisdol) 50,000 unit Q7D PO ; Start 01/17/17 at 21:00; Status UNV Ibuprofen (Motrin) 600 mg Q6H PRN PO PAIN AND OR ELEVATED TEMP; Start 01/17/17 at 21:00 Insulin Glargine (Lantus) 24 unit QHS SC Last administered on 01/18/17 21:59; Admin Dose 24 UNIT; Start 01/17/17 at 21:00 Pantoprazole (Protonix Iv) 40 mg DAILY@06 IV Last administered on 01/19/17 06: 12; Admin Dose 40 MG; Start 01/18/17 at 06:00 Insulin Aspart (Novolog Insulin Pen) NOVOLOG *MILD* ALGORI... Q6 SC Last administered on 01/18/17 12:03; Admin Dose 2 UNIT; Start 01/18/17 at 00:00 Miscellaneous Information 1 ea NOTE XX ; Start 01/17/17 at 23:00 Glucose (Glutose) 15 gm Q15M PRN PO DECREASED GLUCOSE; Start 01/17/17 at 23:00 Glucose (Glutose) 22.5 gm Q15M PRN PO DECREASED GLUCOSE; Start 01/17/17 at 23:00 Dextrose (D50w Syringe) 25 ml Q15M PRN IV DECREASED GLUCOSE; Start 01/17/17 at 23:00 Dextrose (D50w Syringe) 50 ml Q15M PRN IV DECREASED GLUCOSE; Start 01/17/17 at 23:00 Glucagon (Glucagen) 1 mg Q15M PRN IM DECREASED GLUCOSE; Start 01/17/17 at 23:00 Glucose (Glutose) 15 gm Q15M PRN BUCCAL DECREASED GLUCOSE; Start 01/17/17 at 23: 00 Tramadol HCl (Ultram) 50 mg Q6H PRN PO PAIN LEVEL 4-7; Start 01/18/17 at 06:30 Atorvastatin Calcium (Lipitor) 80 mg HS PO ; Start 01/18/17 at 07:00 Miscellaneous Information (*Order Clarification Bulletin) ERGOCALCIFEROL 50,000 UNITS ... Q8H XX ; Start 01/18/17 at 07:30 LUKE AU MD Jan 19, 2017 15:31
--- NOTE | 2017-01-19 17:11 | RADRPT ---
PROCEDURE: Noncontrast CT Head. CLINICAL INDICATION: Stroke. Left hemiparesis. TECHNIQUE: Noncontrast CT of the head was obtained. The administered radiation dose was CTDI vol = 45.01 mGy, DLP = 720.23 mGy-cm. One or more of the following dose reduction techniques were used: Au tomated exposure control, Adjustment of the mA and/or kV according to patient size, or Use of iterat celina reconstruction technique. COMPARISON: Noncontrast CT of the head and CT of the head and neck from January 17, 2017. FINDINGS: The ventricles and sulci are within normal limits. There is interval loss of monroe-white differentiation within the right posterior limb of the internal capsule compatible with acute / recent infarction. There are mild to moderate vascular calcificati ons within the intracranial carotid arteries. There are moderate to extensive vascular calcification s within the bilateral V4 vertebral arteries greater than expected for age. There is no acute intracranial hemorrhage or extra-axial fluid collection. There is no mass effect. No midline shift is identified. The orbits are within normal limits. There is minimal right maxillary sinus mucosal thickening. No destructive osseous lesion is identified. There is a 2 mm left frontal scalp density which may re present calcification or foreign body (image 18 series 3). IMPRESSION: 1. Interval loss of monroe-white differentiation within the right posterior limb of the internal capsu le most compatible with acute / recent infarction. Noncontrast MRI of the brain may be performed as clinically warranted. 2. No acute intracranial hemorrhage. 3. There is a 2 mm left frontal scalp density which may represent calcification or foreign body. Further findings as detailed above. These findings were discussed with nurse Melina Alves at 05:08 p.m. on January 19, 2017. RPTAT: PP .Jb Ring MD, MD Date Time Electronically viewed and signed by .Jb Ring MD, on 01/19/2017 17:11 .F/
[2017-01-19] MEDS: INSULIN GLARGINE [LANtus] 3 ML PEN SC SCH (21:00)
[2017-01-19] MEDS: ATORVASTATIN 80 MG TAB PO SCH (21:00)
--- NOTE | 2017-01-19 21:28 | RADRPT ---
PROCEDURE: CT brain without contrast CLINICAL INDICATION: Ischemic infarct. Clinical concern for intracranial hemorrhage TECHNIQUE: A CT of the brain was performed utilizing axial sections from the skull base through th e vertex without contrast. Sagittal and coronal images were also reformatted. The exam CTDIvol = 44. 46 mGy and DLP = 720.23 mGy-cm. COMPARISON: 01/19/2017 at 15:47 FINDINGS: There is no evidence of intracranial hemorrhage. Ovoid hypodense area within the posterior limb rig ht internal capsule is again noted unchanged and estimated at 3.4 x 1.1 cm (series 2 image 19). Onl y minimal local mass effect is suggested, no midline shift or hydrocephalus is present. There is no new area of ischemic infarct. The fourth ventricle remains midline and there is no density alterat ion within the adonay or cerebellum. Atherosclerotic calcification of the vertebral and cavernous int ernal carotid arteries appears advanced for age. The osseous structures are unremarkable. The mastoid air cells and visualized paranasal sinuses are clear. RPTAT:HJJR IMPRESSION: 1. Stable ischemic infarct in the posterior limb right internal capsule without development of intr acranial hemorrhage or interval change from the CT from earlier the same day. 2. Advanced atherosclerotic calcification of the vertebral and cavernous internal carotid arteries for the patient's age. Physician Hamida Date Time Electronically viewed and signed by Physician Haimda on 01/19/2017 21:28 JR/
--- NOTE | 2017-01-19 22:03 | RADRPT ---
PROCEDURE: CR Left Knee CLINICAL INDICATION: Pain secondary to fall TECHNIQUE: An AP and a lateral view were submitted. COMPARISON: None FINDINGS: Osseous Structures: The osseous elements appear well mineralized and intact. There is spurring off t he superior and inferior patella anteriorly. Joint Spaces: The joint spaces are well maintained. No joint effusion is identified. Soft Tissues: There is mild prepatellar soft tissue swelling. IMPRESSION: 1. No fracture or joint effusion is evident. 2. There is spurring off the anterior patella extending anteriorly and posteriorly. 3. Mild prepatellar soft tissue swelling. Physician Tray Date Time Electronically viewed and signed by Physician Tray on 01/19/2017 22:02 /
[2017-01-20] VITALS (12 sets, daily range): BP systolic 145–178; BP diastolic 73–94; PULSE 88–97; RESP 16–21
[2017-01-20] MEDS: SOD CHLORIDE 0.45% 1,000 ML IV SCH ×2 (01:33→14:47)
[2017-01-20] MEDS: INSULIN ASPART [NOVOLOG] 3 ML PEN SC SCH ×5 (06:00→21:45)
[2017-01-20] MEDS: PANTOPRAZOLE 40 MG INJ IV SCH (06:37)
[2017-01-20] MEDS: HEPARIN 5,000 UNIT/0.5 ML VIAL SC SCH ×2 (08:00→21:51)
[2017-01-20] MEDS: LISINOPRIL 5 MG TAB PO SCH (09:19)
[2017-01-20] MEDS: ASPIRIN (EC) 325 MG TAB PO SCH (09:19)
[2017-01-20 09:27] LABS: ADD SCAN DIFF NO
[2017-01-20 09:30] LABS: BASOPHIL # 0.1 10^3/ul (0.0-0.1); BASOPHILS % 0.4 % (0.0-2.0); EOSINOPHILS # 0.1 10^3/ul (0.0-0.5); EOSINOPHILS % 1.2 % (0.0-7.0); HEMATOCRIT 41.5 % (42.0-52.0); HEMOGLOBIN 14.5 g/dl (14.0-18.0); LYMPHOCYTES # 2.7 10^3/ul (0.8-2.9); LYMPHOCYTES % 23.3 % (15.0-51.0); MEAN CORPUSCULAR HEMOGLOBIN 30.9 pg (29.0-33.0); MEAN CORPUSCULAR HGB CONC 34.9 g/dl (32.0-37.0); MEAN CORPUSCULAR VOLUME 88.5 fl (82.0-101.0); MEAN PLATELET VOLUME 9.5 fl (7.4-10.4); MONOCYTE # 0.7 10^3/ul (0.3-0.9); MONOCYTES % 5.9 % (0.0-11.0); NEUTROPHILS % 68.9 % (39.0-77.0); PLATELET COUNT 248 10^3/UL (140-415); RED BLOOD COUNT 4.69 10^6/ul (4.70-6.10); RED CELL DISTRIBUTION WIDTH 11.9 % (11.5-14.5); WHITE BLOOD COUNT 11.6 10^3/ul (4.8-10.8)
[2017-01-20 09:48] LABS: CALCIUM 8.8 mg/dl (8.4-10.2); CREATININE 0.58 mg/dl (0.61-1.24); POTASSIUM 4.1 mmol/L (3.5-5.1)
--- NOTE | 2017-01-20 11:52 | CONS ---
Date/Time of Note Date/Time of Note DATE: 01/20/17 TIME: 11:49 Consult Date/Type/Reason Admit Date/Time Jan 17, 2017 at 19:03 Initial Consult Date 01/18/17 Type of Consultation: Neurology Reason for Consultation CVA Ordering Provider: DEEPAK MESSER Subjective left hemiplegia, improving sensation to left arm and leg symptoms are stable, fell out of bed this am repeat Head CT shows right internal capsule stroke Objective Vital Signs Date Time Temp Pulse Resp B/P Pulse Ox O2 Delivery O2 Flow Rate FiO2 01/20/17 11:43 98.3 86 21 174/85 97 01/20/17 08:00 Nasal Cannula 2.0 Intake and Output 01/19/17 01/19/17 01/20/17 15:00 23:00 07:00 Intake Total 0 ml 650 ml Output Total 700 ml 500 ml Balance -700 ml 150 ml Exam Constitutional: alert, oriented, well developed Psych: nl mood/affect, no complaints Head: atraumatic, normocephalic Eyes: EOMI, nl conjunctiva, nl lids, nl sclera ENMT: mucosa pink and moist, nl external ears & nose, nl lips & teeth, nl nasal mucosa & septum Neck: non-tender, supple Respiratory: clear to auscultation, normal air movement Cardiovascular: nl pulses, regular rate and rhythm Gastrointestinal: nl liver, spleen, non-tender, soft Extremities: normal pulses Neurological: other (Alert and awake, follows all commands, left facial droop, left hemiparesis, unable to raise his arm in legs against gravity, cannot squeeze my fingers or wiggle his toes, left Babinski) improving sensation to left arm and leg Results/Medications Result Diagram: 01/20/17 0910 01/20/17 0910 Results 24 hrs Laboratory Tests Test 01/19/17 17:03 01/19/17 19:55 01/20/17 00:47 01/20/17 06:33 Bedside Glucose 110 120 124 116 Test 01/20/17 07:58 01/20/17 09:10 Bedside Glucose 118 White Blood Count 11.6 H Red Blood Count 4.69 L Hemoglobin 14.5 Hematocrit 41.5 L Mean Corpuscular Volume 88.5 Mean Corpuscular Hemoglobin 30.9 Mean Corpuscular Hemoglobin Concent 34.9 Red Cell Distribution Width 11.9 Platelet Count 248 Mean Platelet Volume 9.5 Neutrophils % 68.9 Lymphocytes % 23.3 Monocytes % 5.9 Eosinophils % 1.2 Basophils % 0.4 Nucleated Red Blood Cells % 0.0 Neutrophils # 8.0 H Lymphocytes # 2.7 Monocytes # 0.7 Eosinophils # 0.1 Basophils # 0.1 Nucleated Red Blood Cells # 0.0 Sodium Level 140 Potassium Level 4.1 Chloride Level 107 Carbon Dioxide Level 22 Anion Gap 15 Blood Urea Nitrogen 13 Creatinine 0.58 L Glucose Level 119 Calcium Level 8.8 Medications Current Medications Ondansetron HCl (Zofran Inj) 4 mg Q6H PRN IV NAUSEA AND/OR VOMITING; Start 01/17 at 21:00 Docusate Sodium (Colace) 100 mg Q12H PRN PO CONSTIPATION; Start 01/17/17 at 21: 00 Magnesium Hydroxide (Milk Of Mag) 30 ml DAILY PRN PO CONSTIPATION; Start at 21:00 Sodium Biphosphate/ Sodium Phosphate (Fleet Enema) 133 ml DAILY PRN [place] CONSTIPATION; Start 01/17/17 at 21:00 Heparin Sodium (Porcine) 5000 unit 5,000 unit Q12 SC Last administered on 08:00; Admin Dose 5,000 UNIT; Start 01/17/17 at 21:00 Sodium Chloride (1/2 NS) 1,000 ml @ 75 mls/hr [id number] IV Last administered on 01/20/17 01:33; Admin Dose 75 MLS/HR; Start 01/17/17 at 20:40 Lorazepam (Ativan) 0.5 mg Q6H PRN IV ANXIETY Last administered on 01/18/17 22: 02; Admin Dose 0.5 MG; Start 01/17/17 at 21:00 Hydralazine HCl (Apresoline) 10 mg Q6H PRN IV ELEVATED BLOOD PRESSURE; Start at 21:00 Nitroglycerin (Nitroglycerin (Sl Tab) 0.4 Mg) 1 tab Q5M PRN SL ANGINA; Start at 21:00 Aspirin (Ecotrin) 325 mg DAILY PO Last administered on 01/20/17 09:19; Admin Dose 325 MG; Start 01/18/17 at 09:00 Ergocalciferol (Drisdol) 50,000 unit Q7D PO ; Start 01/21/17 at 09:00 Ibuprofen (Motrin) 600 mg Q6H PRN PO PAIN AND OR ELEVATED TEMP; Start 01/17/17 at 21:00 Insulin Glargine (Lantus) 24 unit QHS SC Last administered on 01/18/17 21:59; Admin Dose 24 UNIT; Start 01/17/17 at 21:00 Pantoprazole (Protonix Iv) 40 mg DAILY@06 IV Last administered on 01/20/17 06: 37; Admin Dose 40 MG; Start 01/18/17 at 06:00 Insulin Aspart (Novolog Insulin Pen) NOVOLOG *MILD* ALGORI... Q6 SC Last administered on 01/18/17 12:03; Admin Dose 2 UNIT; Start 01/18/17 at 00:00 Miscellaneous Information 1 ea NOTE XX ; Start 01/17/17 at 23:00 Glucose (Glutose) 15 gm Q15M PRN PO DECREASED GLUCOSE; Start 01/17/17 at 23:00 Glucose (Glutose) 22.5 gm Q15M PRN PO DECREASED GLUCOSE; Start 01/17/17 at 23:00 Dextrose (D50w Syringe) 25 ml Q15M PRN IV DECREASED GLUCOSE; Start 01/17/17 at 23:00 Dextrose (D50w Syringe) 50 ml Q15M PRN IV DECREASED GLUCOSE; Start 01/17/17 at 23:00 Glucagon (Glucagen) 1 mg Q15M PRN IM DECREASED GLUCOSE; Start 01/17/17 at 23:00 Glucose (Glutose) 15 gm Q15M PRN BUCCAL DECREASED GLUCOSE; Start 01/17/17 at 23: 00 Tramadol HCl (Ultram) 50 mg Q6H PRN PO PAIN LEVEL 4-7; Start 01/18/17 at 06:30 Atorvastatin Calcium (Lipitor) 80 mg HS PO ; Start 01/18/17 at 07:00 Lisinopril (Zestril) 5 mg DAILY PO Last administered on 01/20/17 09:19; Admin Dose 5 MG; Start 01/19/17 at 15:30 Assessment/Plan Chief Complaint/Hosp Course 46-year-old male with past medical history of type 2 diabetes, hypertension, depression, posttraumatic stress disorder, arthritis, TIA x4 in the past, CVA 3 years ago, who presents with left-sided weakness symptoms. A code stroke that was called, and teleneurologist saw the patient but determined that the patient was not a candidate for TPA despite his symptoms of ongoing left-sided weakness and facial droop. He did have a CTA head and neck in the ER as well as a head CT that did not show any signs of any acute thrombosis or any hemodynamically significant stenosis. Examination shows left hemiparesis and left facial droop with left Babinski. CTH shows sub-acute appearing stroke in right internal capsule region causing left motor syndrome. Etiology small vessel disease secondary to uncontrolled DM . Recommendations; -continue aspirin 81 mg, continue statin dosing -continue neuro checks -PT/OT/speech weight loss/dietary modification, nutrition consultation DVT ppx may benefit from Acute Rehab discharge planning, outpatient neurology follow up advised discussed with patient imperative to modify his risk factors to prevent further ischemic events Problems: HONORIO CORREA MD Jan 20, 2017 11:52
--- NOTE | 2017-01-20 14:03 | PN ---
Date/Time of Note Date/Time of Note DATE: 01/20/17 TIME: 13:59 Assessment/Plan VTE Prophylaxis VTE Prophylaxis Intervention: heparin Lines/Catheters IV Catheter Type (from Nrs): Peripheral IV Urinary Cath still in place: Yes Reason Cath still needed: other (indicate) Assessment/Plan Assessment/Plan 1. Acute stroke with left hemiparesis, aspirin and lipitor, Follow up with neurology. PT/OT/speech therapy, acute rehab eval 2. Type 2 diabetes mellitus. Hemoglobin A1c 9.1. on insulins 3. Dysphagia. Most probably secondary to #1. Continue n.p.o. Follow up with speech therapy evaluation. 4. Hypertension, add lisinopril 5. Anxiety. The patient will be maintained on anxiolytics. 6. Fluid, electrolytes and nutrition. Continue n.p.o. Continue IV hydration. 7. Deep venous thrombosis prophylaxis. Subcutaneous heparin. Subjective 24 Hr Interval Summary Free Text/Dictation left side weakness Exam/Review of Systems Vital Signs Vitals Vital Signs Date Time Temp Pulse Resp B/P Pulse Ox O2 Delivery O2 Flow Rate FiO2 01/20/17 12:44 94 01/20/17 11:43 98.3 21 174/85 97 01/20/17 08:00 Nasal Cannula 2.0 Intake and Output 01/19/17 01/19/17 01/20/17 15:00 23:00 07:00 Intake Total 0 ml 650 ml Output Total 700 ml 500 ml Balance -700 ml 150 ml Exam Constitutional: alert, oriented, well developed Head: atraumatic, normocephalic Eyes: EOMI, nl conjunctiva, nl lids ENMT: nl external ears & nose, nl lips & teeth, nl nasal mucosa & septum Neck: non-tender, supple Respiratory: clear to auscultation, normal air movement, No congested cough, No crackles/rales, No diminished breath sounds, No intercostal retraction, No labored breathing, No other, No respirations, No tactile fremitus, No wheezing Cardiovascular: nl pulses, regular rate and rhythm, No S3, No S4, No bruits, No diastolic murmur, No edema, No gallop, No irregular rhythm, No jugular venous distention (JVD), No murmurs/extra sounds, No other, No rub, No systolic murmur Gastrointestinal: nl liver, spleen, non-tender, soft, No ascites, No bowel sounds, No distended, No firm, No hepatomegaly, No mass , No other, No rebound or guarding, No splenomegaly, No surgical scars, No tender Musculoskeletal: nl extremities to inspection 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3 Monocytes % 5.9 Eosinophils % 1.2 Basophils % 0.4 Nucleated Red Blood Cells % 0.0 Neutrophils # 8.0 H Lymphocytes # 2.7 Monocytes # 0.7 Eosinophils # 0.1 Basophils # 0.1 Nucleated Red Blood Cells # 0.0 Sodium Level 140 Potassium Level 4.1 Chloride Level 107 Carbon Dioxide Level 22 Anion Gap 15 Blood Urea Nitrogen 13 Creatinine 0.58 L Glucose Level 119 Calcium Level 8.8 Medications Medications Current Medications Ondansetron HCl (Zofran Inj) 4 mg Q6H PRN IV NAUSEA AND/OR VOMITING; Start 01/17 at 21:00 Docusate Sodium (Colace) 100 mg Q12H PRN PO CONSTIPATION; Start 01/17/17 at 21: 00 Magnesium Hydroxide (Milk Of Mag) 30 ml DAILY PRN PO CONSTIPATION; Start at 21:00 Sodium Biphosphate/ Sodium Phosphate (Fleet Enema) 133 ml DAILY PRN [place] CONSTIPATION; Start 01/17/17 at 21:00 Heparin Sodium (Porcine) 5000 unit 5,000 unit Q12 SC Last administered on t 08:00; Admin Dose 5,000 UNIT; Start 01/17/17 at 21:00 Sodium Chloride (1/2 NS) 1,000 ml @ 75 mls/hr [id number] IV Last administered on 01/20/17 01:33; Admin Dose 75 MLS/HR; Start 01/17/17 at 20:40 Lorazepam (Ativan) 0.5 mg Q6H PRN IV ANXIETY Last administered on 01/18/17 22: 02; Admin Dose 0.5 MG; Start 01/17/17 at 21:00 Hydralazine HCl (Apresoline) 10 mg Q6H PRN IV ELEVATED BLOOD PRESSURE; Start at 21:00 Nitroglycerin (Nitroglycerin (Sl Tab) 0.4 Mg) 1 tab Q5M PRN SL ANGINA; Start at 21:00 Aspirin (Ecotrin) 325 mg DAILY PO Last administered on 01/20/17 09:19; Admin Dose 325 MG; Start 01/18/17 at 09:00 Ergocalciferol (Drisdol) 50,000 unit Q7D PO ; Start 01/21/17 at 09:00 Ibuprofen (Motrin) 600 mg Q6H PRN PO PAIN AND OR ELEVATED TEMP; Start 01/17/17 at 21:00 Insulin Glargine (Lantus) 24 unit QHS SC Last administered on 01/18/17 21:59; Admin Dose 24 UNIT; Start 01/17/17 at 21:00 Pantoprazole (Protonix Iv) 40 mg DAILY@06 IV Last administered on 01/20/17 06: 37; Admin Dose 40 MG; Start 01/18/17 at 06:00 Insulin Aspart (Novolog Insulin Pen) NOVOLOG *MILD* ALGORI... Q6 SC Last administered on 01/18/17 12:03; Admin Dose 2 UNIT; Start 01/18/17 at 00:00 Miscellaneous Information 1 ea NOTE XX ; Start 01/17/17 at 23:00 Glucose (Glutose) 15 gm Q15M PRN PO DECREASED GLUCOSE; Start 01/17/17 at 23:00 Glucose (Glutose) 22.5 gm Q15M PRN PO DECREASED GLUCOSE; Start 01/17/17 at 23:00 Dextrose (D50w Syringe) 25 ml Q15M PRN IV DECREASED GLUCOSE; Start 01/17/17 at 23:00 Dextrose (D50w Syringe) 50 ml Q15M PRN IV DECREASED GLUCOSE; Start 01/17/17 at 23:00 Glucagon (Glucagen) 1 mg Q15M PRN IM DECREASED GLUCOSE; Start 01/17/17 at 23:00 Glucose (Glutose) 15 gm Q15M PRN BUCCAL DECREASED GLUCOSE; Start 01/17/17 at 23: 00 Tramadol HCl (Ultram) 50 mg Q6H PRN PO PAIN LEVEL 4-7; Start 01/18/17 at 06:30 Atorvastatin Calcium (Lipitor) 80 mg HS PO ; Start 01/18/17 at 07:00 Lisinopril (Zestril) 5 mg DAILY PO Last administered on 01/20/17 09:19; Admin Dose 5 MG; Start 01/19/17 at 15:30 LUKE AU MD Jan 20, 2017 14:03
[2017-01-20] MEDS: hydrALAzine 20 MG INJ IV PRN (14:47)
[2017-01-20] MEDS: ATORVASTATIN 80 MG TAB PO SCH (21:49)
[2017-01-20] MEDS: INSULIN GLARGINE [LANtus] 3 ML PEN SC SCH (21:54)
[2017-01-21] VITALS (12 sets, daily range): BP systolic 126–199; BP diastolic 76–100; PULSE 92–99; RESP 16–18
[2017-01-21] MEDS: ACCU-CHEK XX SCH (02:00)
[2017-01-21] MEDS: PANTOPRAZOLE 40 MG INJ IV SCH (06:11)
[2017-01-21] MEDS: INSULIN ASPART [NOVOLOG] 3 ML PEN SC SCH ×4 (08:00→20:36)
[2017-01-21 08:26] LABS: ADD SCAN DIFF NO
[2017-01-21 08:30] LABS: BASOPHIL # 0.1 10^3/ul (0.0-0.1); BASOPHILS % 0.6 % (0.0-2.0); EOSINOPHILS # 0.2 10^3/ul (0.0-0.5); EOSINOPHILS % 1.8 % (0.0-7.0); HEMATOCRIT 41.6 % (42.0-52.0); HEMOGLOBIN 14.1 g/dl (14.0-18.0); LYMPHOCYTES # 3.2 10^3/ul (0.8-2.9); LYMPHOCYTES % 26.9 % (15.0-51.0); MEAN CORPUSCULAR HEMOGLOBIN 30.6 pg (29.0-33.0); MEAN CORPUSCULAR HGB CONC 33.9 g/dl (32.0-37.0); MEAN CORPUSCULAR VOLUME 90.2 fl (82.0-101.0); MEAN PLATELET VOLUME 9.8 fl (7.4-10.4); MONOCYTE # 0.7 10^3/ul (0.3-0.9); NEUTROPHIL # 7.6 10^3/ul (1.6-7.5); NEUTROPHILS % 64.3 % (39.0-77.0); PLATELET COUNT 257 10^3/UL (140-415); RED BLOOD COUNT 4.61 10^6/ul (4.70-6.10); RED CELL DISTRIBUTION WIDTH 12.1 % (11.5-14.5); WHITE BLOOD COUNT 11.8 10^3/ul (4.8-10.8)
[2017-01-21] MEDS ORDERED: ERGOCALCIFEROL 50,000 UNIT CAP PO SCH (09:00)
[2017-01-21 09:37] LABS: CALCIUM 9.3 mg/dl (8.4-10.2); CREATININE 0.6 mg/dl (0.61-1.24); POTASSIUM 4.1 mmol/L (3.5-5.1)
[2017-01-21] MEDS: ASPIRIN (EC) 325 MG TAB PO SCH (09:59)
[2017-01-21] MEDS: LISINOPRIL 5 MG TAB PO SCH (10:00)
[2017-01-21] MEDS: HEPARIN 5,000 UNIT/0.5 ML VIAL SC SCH ×2 (10:01→20:33)
[2017-01-21] MEDS: SOD CHLORIDE 0.45% 1,000 ML IV SCH ×3 (10:05→18:00)
[2017-01-21] MEDS: hydrALAzine 20 MG INJ IV PRN (11:45)
--- NOTE | 2017-01-21 15:56 | PN ---
Date/Time of Note Date/Time of Note DATE: 01/21/17 TIME: 15:49 Assessment/Plan VTE Prophylaxis VTE Prophylaxis Intervention: heparin Lines/Catheters IV Catheter Type (from [facility]): Peripheral IV Urinary Cath still in place: Yes Reason Cath still needed: other (indicate) Assessment/Plan Chief Complaint/Hosp Course 1. Transient mental status change, no jerking movement, ?TIA, talked to neurologist, repeat CTA 2. Acute stroke with left hemiparesis, aspirin and lipitor, Follow up with neurology 3. Dysphagia. Most probably secondary to #1. Continue n.p.o. Follow up with speech therapy evaluation. 4. Hypertension, add lisinopril 5. Anxiety. The patient will be maintained on anxiolytics. 6. Type 2 diabetes mellitus. Hemoglobin A1c 9.1. on insulins 7. Deep venous thrombosis prophylaxis. Subcutaneous heparin. Problems: Subjective 24 Hr Interval Summary Free Text/Dictation Patient suddenly became lethargic, confused but SBP 150s, FS was 140, with normal O2 saturation. He moves his right upper and lower extremities, no respiratory distress. Patient's mental status recovered in minutes. Exam/Review of Systems Vital Signs Vitals Vital Signs Date Time Temp Pulse Resp B/P Pulse Ox O2 Delivery O2 Flow Rate FiO2 01/21/17 12:27 95 01/21/17 11:51 98.5 18 199/96 99 01/20/17 23:51 Nasal Cannula 2.0 Intake and Output 01/20/17 01/20/17 01/21/17 15:00 23:00 07:00 Intake Total 650 ml 1190 ml Output Total 750 ml 700 ml Balance -100 ml 490 ml Exam Constitutional: alert, oriented Head: atraumatic, normocephalic Eyes: EOMI, PERRL, nl conjunctiva, nl lids ENMT: nl external ears & nose, nl lips & teeth, nl nasal mucosa & septum Neck: non-tender, supple Respiratory: clear to auscultation, normal air movement, No congested cough, No crackles/rales, No diminished breath sounds, No intercostal retraction, No labored breathing, No other, No respirations, No tactile fremitus, No wheezing Cardiovascular: nl pulses, regular rate and rhythm, No S3, No S4, No bruits, No diastolic murmur, No edema, No gallop, No irregular rhythm, No jugular venous distention (JVD), No murmurs/extra sounds, No other, No rub, No systolic murmur Gastrointestinal: nl liver, spleen, non-tender, soft, No ascites, No bowel sounds, No distended, No firm, No hepatomegaly, No mass , No other, No rebound or guarding, No splenomegaly, No surgical scars, No tender Musculoskeletal: nl extremities to inspection Extremities: normal pulses, No calf tenderness, No clubbing, No cyanosis, No edema, No other, No palpable cord, No pitting pedal edema, No tenderness 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, nl mental status, nl speech Results Result Diagram: 01/21/17 0725 01/21/17 0725 Results 24 hrs Laboratory Tests Test 01/20/17 16:58 01/20/17 21:47 01/21/17 07:25 01/21/17 08:47 Bedside Glucose 119 117 124 White Blood Count 11.8 H Red Blood Count 4.61 L Hemoglobin 14.1 Hematocrit 41.6 L Mean Corpuscular Volume 90.2 Mean Corpuscular Hemoglobin 30.6 Mean Corpuscular Hemoglobin Concent 33.9 Red Cell Distribution Width 12.1 Platelet Count 257 Mean Platelet Volume 9.8 Neutrophils % 64.3 Lymphocytes % 26.9 Monocytes % 6.0 Eosinophils % 1.8 Basophils % 0.6 Nucleated Red Blood Cells % 0.0 Neutrophils # 7.6 H Lymphocytes # 3.2 H Monocytes # 0.7 Eosinophils # 0.2 Basophils # 0.1 Nucleated Red Blood Cells # 0.0 Sodium Level 138 Potassium Level 4.1 Chloride Level 105 Carbon Dioxide Level 22 Anion Gap 15 Blood Urea Nitrogen 12 Creatinine 0.60 L Glucose Level 121 Calcium Level 9.3 Test 01/21/17 12:45 Bedside Glucose 128 Medications Medications Current Medications Ondansetron HCl (Zofran Inj) 4 mg Q6H PRN IV NAUSEA AND/OR VOMITING; Start 01/17 at 21:00 Docusate Sodium (Colace) 100 mg Q12H PRN PO CONSTIPATION; Start 01/17/17 at 21: 00 Magnesium Hydroxide (Milk Of Mag) 30 ml DAILY PRN PO CONSTIPATION; Start at 21:00 Sodium Biphosphate/ Sodium Phosphate (Fleet Enema) 133 ml DAILY PRN [place] CONSTIPATION; Start 01/17/17 at 21:00 Heparin Sodium (Porcine) 5000 unit 5,000 unit Q12 SC Last administered on 10:01; Admin Dose 5,000 UNIT; Start 01/17/17 at 21:00 Sodium Chloride (1/2 NS) 1,000 ml @ 75 mls/hr [id number] IV Last administered on 01/21/17 10:05; Admin Dose 75 MLS/HR; Start 01/17/17 at 20:40 Lorazepam (Ativan) 0.5 mg Q6H PRN IV ANXIETY Last administered on 01/18/17 22: 02; Admin Dose 0.5 MG; Start 01/17/17 at 21:00 Hydralazine HCl (Apresoline) 10 mg Q6H PRN IV ELEVATED BLOOD PRESSURE Last administered on 01/21/17 11:45; Admin Dose 10 MG; Start 01/17/17 at 21:00 Nitroglycerin (Nitroglycerin (Sl Tab) 0.4 Mg) 1 tab Q5M PRN SL ANGINA; Start at 21:00 Aspirin (Ecotrin) 325 mg DAILY PO Last administered on 01/21/17 09:59; Admin Dose 325 MG; Start 01/18/17 at 09:00 Ergocalciferol (Drisdol) 50,000 unit Q7D PO Last administered on 01/21/17 09:59 ; Admin Dose 50,000 UNIT; Start 01/21/17 at 09:00 Ibuprofen (Motrin) 600 mg Q6H PRN PO PAIN AND OR ELEVATED TEMP; Start 01/17/17 at 21:00 Insulin Glargine (Lantus) 24 unit QHS SC Last administered on 01/20/17 21:54; Admin Dose 24 UNIT; Start 01/17/17 at 21:00 Pantoprazole (Protonix Iv) 40 mg DAILY@06 IV Last administered on 01/21/17 06: 11; Admin Dose 40 MG; Start 01/18/17 at 06:00 Miscellaneous Information 1 ea NOTE XX ; Start 01/17/17 at 23:00 Glucose (Glutose) 15 gm Q15M PRN PO DECREASED GLUCOSE; Start 01/17/17 at 23:00 Glucose (Glutose) 22.5 gm Q15M PRN PO DECREASED GLUCOSE; Start 01/17/17 at 23:00 Dextrose (D50w Syringe) 25 ml Q15M PRN IV DECREASED GLUCOSE; Start 01/17/17 at 23:00 Dextrose (D50w Syringe) 50 ml Q15M PRN IV DECREASED GLUCOSE; Start 01/17/17 at 23:00 Glucagon (Glucagen) 1 mg Q15M PRN IM DECREASED GLUCOSE; Start 01/17/17 at 23:00 Glucose (Glutose) 15 gm Q15M PRN BUCCAL DECREASED GLUCOSE; Start 01/17/17 at 23: 00 Tramadol HCl (Ultram) 50 mg Q6H PRN PO PAIN LEVEL 4-7; Start 01/18/17 at 06:30 Atorvastatin Calcium (Lipitor) 80 mg HS PO Last administered on 01/20/17 21:49 ; Admin Dose 80 MG; Start 01/18/17 at 07:00 Lisinopril (Zestril) 5 mg DAILY PO Last administered on 01/21/17 10:00; Admin Dose 5 MG; Start 01/19/17 at 15:30 Diagnostic Test (Pha) (Accu-Chek) 1 02 XX ; Start 01/21/17 at 02:00 LUKE AU MD Jan 21, 2017 15:56
[2017-01-21] MEDS ORDERED: IOHEXOL 100 ML ONE (17:23)
[2017-01-21] MEDS ORDERED: SOD CHLORIDE 0.9% 100 ML ONE (17:23)
[2017-01-21] MEDS ORDERED: IOHEXOL 350MG/ML 50 ML BTL ONE (17:23)
--- NOTE | 2017-01-21 18:55 | RADRPT ---
PROCEDURE: CT Brain without contrast. CLINICAL INDICATION: Altered mental status. Stroke. TECHNIQUE: Axial images from the skull base through the vertex without IV contrast. Multiplanar r eformatted images were made. Images were reviewed on a PACS workstation. The CTDIvol is 46.87 mGy and the DLP is 930.68 mGycm. One or more of the following dose reduction techniques were used: auto mated exposure control, adjustment of the mA and/or kV according to patient size, or use of iterativ e reconstruction technique. COMPARISON: 01/19/2017 FINDINGS: Again seen is an ovoid hypodense area centered in the region of the posterior limb of the right inte rnal capsule but to represent subacute infarct. No interval change in size or configuration of the abnormality. No new area of hypodensity is seen. Mild cortical atrophy is seen. No mass or midlin e shift is seen. No extraaxial fluid collection is seen. Mucoperiosteal thickening of the right ma xillary sinus. Again noted is prominent atherosclerotic intracranial vascular calcification for the patient's age. Small density in the left frontal scalp is again seen. IMPRESSION: No interval change. Stable appearance of presumed subacute infarct centered in the right internal c apsule. RPTAT: [facility]BE Physician Godfrey Date Time Electronically viewed and signed by Physician Godfrey on 01/21/2017 18:55 LE/
--- NOTE | 2017-01-21 19:06 | RADRPT ---
PROCEDURE: CTA head and neck. CLINICAL INDICATION: Stroke. Prior study showing bilateral posterior cerebral artery stenosis. TECHNIQUE: Thin section spiral CT images through the vasculature of the head and neck during injec tion of 120 cc of Omnipaque 350 contrast material. Coronal and sagittal as well as maximal intensi ty projection reformations were obtained. The images were reviewed on a PACS workstation. Stenoses w ere measured using NASCET criteria where appropriate. The administered radiation dose is CTDI 22.99 , DLP 991.58. One or more of the following dose reduction techniques were used: automated exposure c ontrol, adjustment of the mA and/or kV according to patient size, or use of iterative reconstruction technique. COMPARISON: 01/17/2017 FINDINGS: CTA Neck: Cardiomegaly is again seen. Mild calcification of the aortic arch. Bovine aortic arch is again incidentally noted. The common carotid arteries show minimal atherosclerotic change. Partia lly calcified plaque is seen in both carotid bulbs as before with approximately 35% stenosis of the origin of the left internal carotid artery, unchanged. The vertebral arteries remain patent bilater ally with scattered calcified plaque predominately distally. There is no evidence for dissection. Mild mucoperiosteal thickening of the maxillary sinus is seen.. CTA Head: Intracranial anatomy is conventional. There is mild partially calcified plaque of the in tracranial internal carotid arteries. The anterior middle cerebral arteries are patent. Calcificat ion of the distal vertebral arteries is seen. Again seen is stenosis of the proximal posterior cere bral arteries at the P 1-2 junction bilaterally. No new area of stenosis is seen. No aneurysm is s een. IMPRESSION: No significant interval change. Bilateral SOCIAL WORK ASSOCIATE stenosis. Mild atherosclerotic change of the carotid and vertebral arteries. RPTAT: [facility] Physician Godfrey Date Time Electronically viewed and signed by Physician Godfrey on 01/21/2017 19:05 LE/
[2017-01-21] MEDS: ATORVASTATIN 80 MG TAB PO SCH (20:33)
[2017-01-21] MEDS: INSULIN GLARGINE [LANtus] 3 ML PEN SC SCH (20:39)
[2017-01-22] VITALS (12 sets, daily range): BP systolic 135–172; BP diastolic 72–93; PULSE 88–105; RESP 18–20
[2017-01-22] MEDS: ACCU-CHEK XX SCH (02:00)
[2017-01-22] MEDS: SOD CHLORIDE 0.45% 1,000 ML IV SCH ×3 (02:31→20:40)
[2017-01-22] MEDS: PANTOPRAZOLE 40 MG INJ IV SCH (05:47)
[2017-01-22 07:40] LABS: ADD SCAN DIFF NO
[2017-01-22 07:43] LABS: BASOPHIL # 0.1 10^3/ul (0.0-0.1); BASOPHILS % 0.7 % (0.0-2.0); EOSINOPHILS # 0.2 10^3/ul (0.0-0.5); EOSINOPHILS % 2.4 % (0.0-7.0); HEMATOCRIT 41.6 % (42.0-52.0); HEMOGLOBIN 14.5 g/dl (14.0-18.0); LYMPHOCYTES # 2.7 10^3/ul (0.8-2.9); LYMPHOCYTES % 27.9 % (15.0-51.0); MEAN CORPUSCULAR HEMOGLOBIN 31.1 pg (29.0-33.0); MEAN CORPUSCULAR HGB CONC 34.9 g/dl (32.0-37.0); MEAN CORPUSCULAR VOLUME 89.3 fl (82.0-101.0); MEAN PLATELET VOLUME 9.3 fl (7.4-10.4); MONOCYTE # 0.6 10^3/ul (0.3-0.9); MONOCYTES % 5.9 % (0.0-11.0); NEUTROPHIL # 6.1 10^3/ul (1.6-7.5); NEUTROPHILS % 62.6 % (39.0-77.0); PLATELET COUNT 250 10^3/UL (140-415); RED BLOOD COUNT 4.66 10^6/ul (4.70-6.10); RED CELL DISTRIBUTION WIDTH 11.9 % (11.5-14.5); WHITE BLOOD COUNT 9.7 10^3/ul (4.8-10.8)
[2017-01-22] MEDS: INSULIN ASPART [NOVOLOG] 3 ML PEN SC SCH ×4 (08:00→21:00)
[2017-01-22 08:04] LABS: CALCIUM 9.4 mg/dl (8.4-10.2); CREATININE 0.63 mg/dl (0.61-1.24); POTASSIUM 4.1 mmol/L (3.5-5.1)
[2017-01-22] MEDS: ASPIRIN (EC) 325 MG TAB PO SCH (08:49)
[2017-01-22] MEDS: LISINOPRIL 5 MG TAB PO SCH (08:49)
[2017-01-22] MEDS: HEPARIN 5,000 UNIT/0.5 ML VIAL SC SCH ×2 (09:08→21:47)
--- NOTE | 2017-01-22 11:46 | CONS ---
Date/Time of Note Date/Time of Note DATE: 01/22/17 TIME: 11:43 Consult Date/Type/Reason Admit Date/Time Jan 17, 2017 at 19:03 Initial Consult Date 01/18/17 Type of Consultation: Neurology Reason for Consultation CVA Ordering Provider: DEEPAK MESSER Subjective episode of unresponsiveness yesterday lasted for a few minutes vitals were stable during the event, glucose wnl CTA repeated and CTH shows no new changes, no large vessel occlusion Objective Vital Signs Date Time Temp Pulse Resp B/P Pulse Ox O2 Delivery O2 Flow Rate FiO2 01/22/17 11:37 98.0 92 20 166/89 95 01/21/17 20:00 Nasal Cannula 2.0 Intake and Output 01/21/17 01/21/17 01/22/17 15:00 23:00 07:00 Intake Total 70 ml 1000 ml 1050 ml Output Total 800 ml 900 ml Balance 70 ml 200 ml 150 ml Exam Exam Constitutional: alert, oriented, well developed Psych: nl mood/affect, no complaints Head: atraumatic, normocephalic Eyes: EOMI, nl conjunctiva, nl lids, nl sclera ENMT: mucosa pink and moist, nl external ears & nose, nl lips & teeth, nl nasal mucosa & septum Neck: non-tender, supple Respiratory: clear to auscultation, normal air movement Cardiovascular: nl pulses, regular rate and rhythm Gastrointestinal: nl liver, spleen, non-tender, soft Extremities: normal pulses Neurological: other (Alert and awake, follows all commands, left facial droop, left hemiparesis, unable to raise his arm in legs against gravity, cannot squeeze my fingers or wiggle his toes, left Babinski) improving sensation to left arm and leg Results/Medications Result Diagram: 01/22/17 0720 01/22/17 0720 Results 24 hrs Laboratory Tests Test 01/21/17 12:45 01/21/17 15:41 01/21/17 20:36 01/22/17 07:20 Bedside Glucose 128 140 111 White Blood Count 9.7 Red Blood Count 4.66 L Hemoglobin 14.5 Hematocrit 41.6 L Mean Corpuscular Volume 89.3 Mean Corpuscular Hemoglobin 31.1 Mean Corpuscular Hemoglobin Concent 34.9 Red Cell Distribution Width 11.9 Platelet Count 250 Mean Platelet Volume 9.3 Neutrophils % 62.6 Lymphocytes % 27.9 Monocytes % 5.9 Eosinophils % 2.4 Basophils % 0.7 Nucleated Red Blood Cells % 0.0 Neutrophils # 6.1 Lymphocytes # 2.7 Monocytes # 0.6 Eosinophils # 0.2 Basophils # 0.1 Nucleated Red Blood Cells # 0.0 Sodium Level 140 Potassium Level 4.1 Chloride Level 106 Carbon Dioxide Level 22 Anion Gap 16 Blood Urea Nitrogen 11 Creatinine 0.63 Glucose Level 99 Calcium Level 9.4 Test 01/22/17 08:48 Bedside Glucose 96 Medications Current Medications Ondansetron HCl (Zofran Inj) 4 mg Q6H PRN IV NAUSEA AND/OR VOMITING; Start 01/17 at 21:00 Docusate Sodium (Colace) 100 mg Q12H PRN PO CONSTIPATION; Start 01/17/17 at 21: 00 Magnesium Hydroxide (Milk Of Mag) 30 ml DAILY PRN PO CONSTIPATION; Start at 21:00 Sodium Biphosphate/ Sodium Phosphate (Fleet Enema) 133 ml DAILY PRN [place] CONSTIPATION; Start 01/17/17 at 21:00 Heparin Sodium (Porcine) 5000 unit 5,000 unit Q12 SC Last administered on 09:08; Admin Dose 5,000 UNIT; Start 01/17/17 at 21:00 Sodium Chloride (1/2 NS) 1,000 ml @ 75 mls/hr [id number] IV Last administered on 01/22/17 02:31; Admin Dose 75 MLS/HR; Start 01/17/17 at 20:40 Lorazepam (Ativan) 0.5 mg Q6H PRN IV ANXIETY Last administered on 01/18/17 22: 02; Admin Dose 0.5 MG; Start 01/17/17 at 21:00 Hydralazine HCl (Apresoline) 10 mg Q6H PRN IV ELEVATED BLOOD PRESSURE Last administered on 01/21/17 11:45; Admin Dose 10 MG; Start 01/17/17 at 21:00 Nitroglycerin (Nitroglycerin (Sl Tab) 0.4 Mg) 1 tab Q5M PRN SL ANGINA; Start at 21:00 Aspirin (Ecotrin) 325 mg DAILY PO Last administered on 01/22/17 08:49; Admin Dose 325 MG; Start 01/18/17 at 09:00 Ergocalciferol (Drisdol) 50,000 unit Q7D PO Last administered on 01/21/17 09:59 ; Admin Dose 50,000 UNIT; Start 01/21/17 at 09:00 Ibuprofen (Motrin) 600 mg Q6H PRN PO PAIN AND OR ELEVATED TEMP; Start 01/17/17 at 21:00 Insulin Glargine (Lantus) 24 unit QHS SC Last administered on 01/21/17 20:39; Admin Dose 24 UNIT; Start 01/17/17 at 21:00 Pantoprazole (Protonix Iv) 40 mg DAILY@06 IV Last administered on 01/22/17 05: 47; Admin Dose 40 MG; Start 01/18/17 at 06:00 Miscellaneous Information 1 ea NOTE XX ; Start 01/17/17 at 23:00 Glucose (Glutose) 15 gm Q15M PRN PO DECREASED GLUCOSE; Start 01/17/17 at 23:00 Glucose (Glutose) 22.5 gm Q15M PRN PO DECREASED GLUCOSE; Start 01/17/17 at 23:00 Dextrose (D50w Syringe) 25 ml Q15M PRN IV DECREASED GLUCOSE; Start 01/17/17 at 23:00 Dextrose (D50w Syringe) 50 ml Q15M PRN IV DECREASED GLUCOSE; Start 01/17/17 at 23:00 Glucagon (Glucagen) 1 mg Q15M PRN IM DECREASED GLUCOSE; Start 01/17/17 at 23:00 Glucose (Glutose) 15 gm Q15M PRN BUCCAL DECREASED GLUCOSE; Start 01/17/17 at 23: 00 Tramadol HCl (Ultram) 50 mg Q6H PRN PO PAIN LEVEL 4-7; Start 01/18/17 at 06:30 Atorvastatin Calcium (Lipitor) 80 mg HS PO Last administered on 01/21/17 20:33 ; Admin Dose 80 MG; Start 01/18/17 at 07:00 Lisinopril (Zestril) 5 mg DAILY PO Last administered on 01/22/17 08:49; Admin Dose 5 MG; Start 01/19/17 at 15:30 Diagnostic Test (Pha) (Accu-Chek) 1 ea 02 XX ; Start 01/21/17 at 02:00 Assessment/Plan Chief Complaint/Hosp Course 46-year-old male with past medical history of type 2 diabetes, hypertension, depression, posttraumatic stress disorder, arthritis, TIA x4 in the past, CVA 3 years ago, who presents with left-sided weakness symptoms. A code stroke that was called, and teleneurologist saw the patient but determined that the patient was not a candidate for TPA despite his symptoms of ongoing left-sided weakness and facial droop. He did have a CTA head and neck in the ER as well as a head CT that did not show any signs of any acute thrombosis or any hemodynamically significant stenosis. Examination shows left hemiparesis and left facial droop with left Babinski. CTH shows sub-acute appearing stroke in right internal capsule region causing left motor syndrome. Etiology small vessel disease secondary to uncontrolled DM . Recommendations; -continue aspirin 81 mg, continue statin dosing repeat Head CT and CTA done yesterday for episode of unresponsiveness shows no changes -continue neuro checks -PT/OT/speech weight loss/dietary modification, nutrition consultation DVT ppx may benefit from Acute Rehab pending PT evaluation will also stop ativan and tramadol for episode of unresponsiveness yesterday Problems: HONORIO CORREA MD Jan 22, 2017 11:46
--- NOTE | 2017-01-22 15:53 | PN ---
Date/Time of Note Date/Time of Note DATE: 01/22/17 TIME: 15:50 Assessment/Plan VTE Prophylaxis VTE Prophylaxis Intervention: heparin Lines/Catheters IV Catheter Type (from Nrs): Peripheral IV Urinary Cath still in place: Yes Reason Cath still needed: other (indicate) Assessment/Plan Chief Complaint/Hosp Course 1. Acute stroke with left hemiparesis, aspirin and lipitor, improving, follow up with PT/OT and awaiting for acute 2. Dysphagia. Most probably secondary to #1. Continue n.p.o. Follow up with speech therapy evaluation. 3. Hypertension, increase lisinopril 4. Anxiety. The patient will be maintained on anxiolytics. 5. Type 2 diabetes mellitus. Hemoglobin A1c 9.1. on insulins 6. Deep venous thrombosis prophylaxis. Subcutaneous heparin. Problems: Subjective 24 Hr Interval Summary Free Text/Dictation stronger on left side Exam/Review of Systems Vital Signs Vitals Vital Signs Date Time Temp Pulse Resp B/P Pulse Ox O2 Delivery O2 Flow Rate FiO2 01/22/17 12:23 92 01/22/17 11:37 98.0 20 166/89 95 01/21/17 20:00 Nasal Cannula 2.0 Intake and Output 01/21/17 01/21/17 01/22/17 15:00 23:00 07:00 Intake Total 70 ml 1000 ml 1050 ml Output Total 800 ml 900 ml Balance 70 ml 200 ml 150 ml Exam Constitutional: alert, oriented, well developed Psych: nl mood/affect, no complaints Head: atraumatic, normocephalic Eyes: EOMI, PERRL, nl conjunctiva, nl lids ENMT: nl external ears & nose, nl lips & teeth, nl nasal mucosa & septum Neck: non-tender, supple Respiratory: clear to auscultation, normal air movement, No congested cough, No crackles/rales, No diminished breath sounds, No intercostal retraction, No labored breathing, No other, No respirations, No tactile fremitus, No wheezing Cardiovascular: nl pulses, regular rate and rhythm, No S3, No S4, No bruits, No diastolic murmur, No edema, No gallop, No irregular rhythm, No jugular venous distention (JVD), No murmurs/extra sounds, No other, No rub, No systolic murmur Gastrointestinal: nl liver, spleen, non-tender, soft, No ascites, No bowel sounds, No distended, No firm, No hepatomegaly, No mass , No other, No rebound or guarding, No splenomegaly, No surgical scars, No tender Musculoskeletal: nl extremities to inspection Extremities: normal pulses, No calf tenderness, No clubbing, No cyanosis, No edema, No other, No palpable cord, No pitting pedal edema, No tenderness Neurological: NURSE ORTHO 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, nl mental status, nl speech, other (LUE/LLE 2/ 5) Skin: nl turgor Results Result Diagram: 01/22/17 0720 01/22/17 0720 Results 24 hrs Laboratory Tests Test 01/21/17 20:36 01/22/17 07:20 01/22/17 08:48 01/22/17 11:58 Bedside Glucose 111 96 115 White Blood Count 9.7 Red Blood Count 4.66 L Hemoglobin 14.5 Hematocrit 41.6 L Mean Corpuscular Volume 89.3 Mean Corpuscular Hemoglobin 31.1 Mean Corpuscular Hemoglobin Concent 34.9 Red Cell Distribution Width 11.9 Platelet Count 250 Mean Platelet Volume 9.3 Neutrophils % 62.6 Lymphocytes % 27.9 Monocytes % 5.9 Eosinophils % 2.4 Basophils % 0.7 Nucleated Red Blood Cells % 0.0 Neutrophils # 6.1 Lymphocytes # 2.7 Monocytes # 0.6 Eosinophils # 0.2 Basophils # 0.1 Nucleated Red Blood Cells # 0.0 Sodium Level 140 Potassium Level 4.1 Chloride Level 106 Carbon Dioxide Level 22 Anion Gap 16 Blood Urea Nitrogen 11 Creatinine 0.63 Glucose Level 99 Calcium Level 9.4 Medications Medications Current Medications Ondansetron HCl (Zofran Inj) 4 mg Q6H PRN IV NAUSEA AND/OR VOMITING; Start 01/17 at 21:00 Docusate Sodium (Colace) 100 mg Q12H PRN PO CONSTIPATION; Start 01/17/17 at 21: 00 Magnesium Hydroxide (Milk Of Mag) 30 ml DAILY PRN PO CONSTIPATION; Start at 21:00 Sodium Biphosphate/ Sodium Phosphate (Fleet Enema) 133 ml DAILY PRN [place] CONSTIPATION; Start 01/17/17 at 21:00 Heparin Sodium (Porcine) 5000 unit 5,000 unit Q12 SC Last administered on t 09:08; Admin Dose 5,000 UNIT; Start 01/17/17 at 21:00 Sodium Chloride (1/2 NS) 1,000 ml @ 75 mls/hr [id number] IV Last administered on 01/22/17 02:31; Admin Dose 75 MLS/HR; Start 01/17/17 at 20:40 Hydralazine HCl (Apresoline) 10 mg Q6H PRN IV ELEVATED BLOOD PRESSURE Last administered on 01/21/17 11:45; Admin Dose 10 MG; Start 01/17/17 at 21:00 Nitroglycerin (Nitroglycerin (Sl Tab) 0.4 Mg) 1 tab Q5M PRN SL ANGINA; Start at 21:00 Aspirin (Ecotrin) 325 mg DAILY PO Last administered on 01/22/17 08:49; Admin Dose 325 MG; Start 01/18/17 at 09:00 Ergocalciferol (Drisdol) 50,000 unit Q7D PO Last administered on 01/21/17 09:59 ; Admin Dose 50,000 UNIT; Start 01/21/17 at 09:00 Ibuprofen (Motrin) 600 mg Q6H PRN PO PAIN AND OR ELEVATED TEMP; Start 01/17/17 at 21:00 Insulin Glargine (Lantus) 24 unit QHS SC Last administered on 01/21/17 20:39; Admin Dose 24 UNIT; Start 01/17/17 at 21:00 Pantoprazole (Protonix Iv) 40 mg DAILY@06 IV Last administered on 01/22/17 05: 47; Admin Dose 40 MG; Start 01/18/17 at 06:00 Miscellaneous Information 1 ea NOTE XX ; Start 01/17/17 at 23:00 Glucose (Glutose) 15 gm Q15M PRN PO DECREASED GLUCOSE; Start 01/17/17 at 23:00 Glucose (Glutose) 22.5 gm Q15M PRN PO DECREASED GLUCOSE; Start 01/17/17 at 23:00 Dextrose (D50w Syringe) 25 ml Q15M PRN IV DECREASED GLUCOSE; Start 01/17/17 at 23:00 Dextrose (D50w Syringe) 50 ml Q15M PRN IV DECREASED GLUCOSE; Start 01/17/17 at 23:00 Glucagon (Glucagen) 1 mg Q15M PRN IM DECREASED GLUCOSE; Start 01/17/17 at 23:00 Glucose (Glutose) 15 gm Q15M PRN BUCCAL DECREASED GLUCOSE; Start 01/17/17 at 23: 00 Atorvastatin Calcium (Lipitor) 80 mg HS PO Last administered on 01/21/17 20:33 ; Admin Dose 80 MG; Start 01/18/17 at 07:00 Lisinopril (Zestril) 5 mg DAILY PO Last administered on 01/22/17 08:49; Admin Dose 5 MG; Start 01/19/17 at 15:30 Diagnostic Test (Pha) (Accu-Chek) XX ; Start 01/21/17 at 02:00 LUKE AU MD Jan 22, 2017 15:53
[2017-01-22] MEDS: hydrALAzine 20 MG INJ IV PRN ×2 (16:28→23:59)
[2017-01-22] MEDS: ATORVASTATIN 80 MG TAB PO SCH (21:00)
[2017-01-22] MEDS: INSULIN GLARGINE [LANtus] 3 ML PEN SC SCH (21:46)
[2017-01-23] VITALS (10 sets, daily range): BP systolic 135–168; BP diastolic 73–86; PULSE 90–97; RESP 18–20
[2017-01-23] MEDS: ACCU-CHEK XX SCH (02:00)
[2017-01-23] MEDS: PANTOPRAZOLE 40 MG INJ IV SCH (05:49)
[2017-01-23] MEDS: INSULIN ASPART [NOVOLOG] 3 ML PEN SC SCH ×3 (08:00→17:42)
[2017-01-23 08:02] LABS: ADD SCAN DIFF NO
[2017-01-23 08:03] LABS: BASOPHIL # 0.1 10^3/ul (0.0-0.1); BASOPHILS % 0.6 % (0.0-2.0); EOSINOPHILS # 0.2 10^3/ul (0.0-0.5); EOSINOPHILS % 2.3 % (0.0-7.0); HEMATOCRIT 42.4 % (42.0-52.0); HEMOGLOBIN 14.5 g/dl (14.0-18.0); LYMPHOCYTES # 2.5 10^3/ul (0.8-2.9); MEAN CORPUSCULAR HEMOGLOBIN 30.5 pg (29.0-33.0); MEAN CORPUSCULAR HGB CONC 34.2 g/dl (32.0-37.0); MEAN CORPUSCULAR VOLUME 89.3 fl (82.0-101.0); MEAN PLATELET VOLUME 9.7 fl (7.4-10.4); MONOCYTE # 0.6 10^3/ul (0.3-0.9); MONOCYTES % 5.9 % (0.0-11.0); NEUTROPHIL # 6.9 10^3/ul (1.6-7.5); NEUTROPHILS % 66.6 % (39.0-77.0); PLATELET COUNT 271 10^3/UL (140-415); RED BLOOD COUNT 4.75 10^6/ul (4.70-6.10); WHITE BLOOD COUNT 10.3 10^3/ul (4.8-10.8)
[2017-01-23 08:38] LABS: CALCIUM 9.4 mg/dl (8.4-10.2); CREATININE 0.65 mg/dl (0.61-1.24)
[2017-01-23] MEDS ORDERED: LISINOPRIL 10 MG TAB PO SCH (09:00)
[2017-01-23] MEDS: ASPIRIN (EC) 325 MG TAB PO SCH (09:04)
[2017-01-23] MEDS: HEPARIN 5,000 UNIT/0.5 ML VIAL SC SCH (09:06)
[2017-01-23] MEDS: SOD CHLORIDE 0.45% 1,000 ML IV SCH (12:09)
[2017-01-23] MEDS ORDERED: NOVO3I SC (15:16)
[2017-01-23] MEDS ORDERED: ASPI325T32 PO (15:16)
[2017-01-23] MEDS ORDERED: HEP5KI SC (15:16)
[2017-01-23] MEDS ORDERED: ATOR80TA75 PO (15:16)
--- NOTE | 2017-01-23 16:47 | DS ---
Date/Time of Note Date/Time of Note DATE: 01/23/17 TIME: 16:41 Discharge Summary Admission/Discharge Info Admit Date/Time Jan 17, 2017 at 19:03 Discharge Date/Time Final Diagnosis 1. Acute stroke with left hemiparesis, aspirin and lipitor, acute rehab 2. Hypertension, increase lisinopril 3. Anxiety. The patient will be maintained on anxiolytics. 4. Type 2 diabetes mellitus. Hemoglobin A1c 9.1. on insulins 5. Deep venous thrombosis prophylaxis. Subcutaneous heparin. Patient Condition: Stable Hospital Course A 46-year-old male with past medical history of type 2 diabetes, hypertension, depression, posttraumatic stress disorder, arthritis, TIA x4 in the past, CVA 3 years ago, who presents with left-sided weakness symptoms. Most of the information obtained from ER documentation as the patient is a poor historian and is unable to provide a full HPI at this time. Apparently the patient was in the ER earlier today but wanted to leave AMA. He was present there for weakness symptoms, and before the patient could leave, apparently there was a code stroke that was called, and teleneurologist saw the patient but determined that the patient was not a candidate for TPA despite his symptoms of ongoing left-sided weakness and facial droop. He did have a CTA head and neck in the ER as well as a head CT that did not show any signs of any acute thrombosis or any hemodynamically significant stenosis. Again, his head CT appeared to be negative for hemorrhage, infarctions, or other mass effects. Repeat CT scan on 01/19/2017 showed ischemic infarct in the posterior limb right internal capsule without development of intracranial hemorrhage. Patient is treated with aspirin, lipitor, PT and OT. Patient developed a spell of transient confusion on 01/21/2017. Repeat CT brain on 01/21/2017 showed no interval changes. Patient still has left sided weakness with muscle strength 2/5 on LUE and LLE. He will be transferred to acute rehab for further PT and OT. Home Meds Active Scripts Insulin Aspart* (Novolog Insulin Pen*) 100 Unit/Ml Soln, 0 UNIT SC WITH MEALS BEDTIME for 30 Days Prov:LUKE AU MD 01/23/17 Aspirin (Aspir-Kristy) 325 Mg Tablet.dr, 325 MG PO DAILY for 30 Days Prov:LUKE AU MD 01/23/17 Atorvastatin* (Atorvastatin*) 80 Mg Tablet, 80 MG PO HS for 30 Days, TAB Prov:LUKE AU MD 01/23/17 Heparin Sod (Porcine)* (Heparin*) 5,000 Unit/0.5 Ml Soln, 5000 UNIT SC Q12 for 10 Days Prov:LUKE AU MD 01/23/17 Ibuprofen* (Motrin*) 600 Mg Tab, 600 MG PO Q6H Y for PAIN AND OR ELEVATED TEMP, #30 TAB Prov:JIMBO DE LA CRUZ MD 11/10/16 Diazepam* (Valium*) 5 Mg Tablet, 5 MG PO Q8, #10 TAB Prov:HUNTER CARBALLO MD 10/01/16 Reported Medications Losartan Potassium* (Losartan Potassium*) 50 Mg Tablet, 50 MG PO DAILY, TAB 09/05/16 Ergocalciferol* (Drisdol* (Vitamin D2)) 50,000 Unit Capsule, 61486 UNIT PO Q7D, CAP 06/18/16 Metoprolol Succinate* (Toprol XL*) Unknown Strength Tab.er.24h, MG PO DAILY, # 30 TAB 06/18/16 Insulin Lispro (Humalog) 100 Unit/1 Ml Cartridge, 22 UNIT SQ BEFORE MEALS 06/18/16 Insulin Glargine* (Lantus*) 100 Unit/Ml Soln, 24 UNIT SC QHS, #1 VIAL 06/18/16 Discontinued Reported Medications Losartan Potassium* (Losartan Potassium*) Unknown Strength Tablet, MG PO DAILY, TAB 06/18/16 Discontinued Scripts Ibuprofen* (Motrin*) 600 Mg Tab, 600 MG PO Q6, #30 TAB Prov:BEKAH ARCHER 11/20/16 Tramadol HCl (Tramadol HCl) 50 Mg Tablet, 50 MG PO Q4 Y for PAIN, #15 TAB Prov:HUNTER CARBALLO MD 10/01/16 Ibuprofen* (Motrin*) 800 Mg Tab, 800 MG PO Q6, #30 TAB Prov:HUNTER CARBALLO MD 10/01/16 Ibuprofen* (Motrin*) 800 Mg Tab, 800 MG PO Q6, #30 TAB Prov:MARIBEL COATS PA-C 09/24/16 Amoxicillin* (Amoxicillin*) 500 Mg Cap, 500 MG PO BID for 7 Days, CAP Prov:MARIBEL COATS PA-C 09/24/16 Ibuprofen* (Motrin*) 600 Mg Tab, 600 MG PO Q6H Y for PAIN for 7 Days, TAB Prov:MIKE RIOS PA-C 08/18/16 Ibuprofen* (Motrin*) 800 Mg Tab, 800 MG PO Q6, #20 TAB Prov:HUNTER CARBALLO MD 06/01/16 Follow-up Plan acute rehab follow up with neurology Primary Care Provider [facility] Pending Labs Laboratory Tests Test 01/22/17 17:22 01/22/17 21:03 01/23/17 07:30 01/23/17 08:06 Bedside Glucose 102mg/dL (70-220) 109mg/dL (70-220) 99mg/dL (70-220) White Blood Count 10.310^3/ul (4.8-10.8) Red Blood Count 4.7510^6/ul (4.70-6.10) Hemoglobin 14.5g/dl (14.0-18.0) Hematocrit 42.4% (42.0-52.0) Mean Corpuscular Volume 89.3fl (82.0-101.0) Mean Corpuscular Hemoglobin 30.5pg (29.0-33.0) Mean Corpuscular Hemoglobin Concent 34.2g/dl (32.0-37.0) Red Cell Distribution Width 12.0% (11.5-14.5) Platelet Count 09273^3/UL (140-415) Mean Platelet Volume 9.7fl (7.4-10.4) Neutrophils % 66.6% (39.0-77.0) Lymphocytes % 24.0% (15.0-51.0) Monocytes % 5.9% (0.0-11.0) Eosinophils % 2.3% (0.0-7.0) Basophils % 0.6% (0.0-2.0) Nucleated Red Blood Cells % 0.0/100WBC (0.0-0.0) Neutrophils # 6.910^3/ul (1.6-7.5) Lymphocytes # 2.510^3/ul (0.8-2.9) Monocytes # 0.610^3/ul (0.3-0.9) Eosinophils # 0.210^3/ul (0.0-0.5) Basophils # 0.110^3/ul (0.0-0.1) Nucleated Red Blood Cells # 0.010^3/ul (0.0-0.0) Sodium Level 139mmol/L (135-144) Potassium Level 4.0mmol/L (3.5-5.1) Chloride Level 106mmol/L (97-110) Carbon Dioxide Level 21mmol/L (21-31) Anion Gap 16 (8-16) Blood Urea Nitrogen 11mg/dl (7-20) Creatinine 0.65mg/dl (0.61-1.24) Glucose Level 98mg/dl (70-220) Calcium Level 9.4mg/dl (8.4-10.2) Test 01/23/17 12:06 Bedside Glucose 127mg/dL (70-220) LUKE AU MD Jan 23, 2017 16:46
== END 2017-01-23 18:26 | DRG 65 ==
LOC: E/R 15:50 → MS4 19:03
PROVIDERS: ADMIT Family Medicine; ATTEND Family Medicine
DX: I63.9 Cerebral infarction, unspecified (principal); G81.94 Hemiplegia, unspecified affecting left nondominant side; Z68.42 Body mass index [BMI] 45.0-49.9, adult; E66.01 Morbid (severe) obesity due to excess calories; R13.10 Dysphagia, unspecified; I10 Essential (primary) hypertension; F41.9 Anxiety disorder, unspecified; E11.9 Type 2 diabetes mellitus without complications; F40.240 Claustrophobia; R40.2413 Glasgow coma scale score 13-15, at hospital admission; R41.0 Disorientation, unspecified; Z86.73 Personal history of transient ischemic attack (TIA), and cerebral infarction without residual deficits; Z79.4 Long term (current) use of insulin
CPT/HCPCS: 70450; 70496; 70498; 71010; 73560; 80048; 80061; 80307; 81001; 82962; 83036; 83735; 84100; 84439; 84443; 84484; 85025; 85610; 85730; 87086; 92526; 92610; 93005; 93306; 97110; 97162; 97167; 97530; C9113; J0360; J1644; J1815; J2060; J3475; Q9967

== ENCOUNTER 2017-01-23 16:24 | Inpatient (IN) | payer OTHER ==
[~2017-01-23] VITALS: Ht 170.2 cm; Wt 139.0 kg
[~2017-01-23 16:24] MED LIST changes: +ASPI325T32 PO; +ATOR80TA75 PO; +HEP5KI SC; +NOVO3I SC
[2017-01-23 19:01] VITALS: BP 165/92; PULSE 99; RESP 20
[2017-01-23 20:14] VITALS: BP 181/85; RESP 18
[2017-01-23] MEDS ORDERED: DOCUSATE SODIUM 100 MG CAP PO PRN (21:00)
[2017-01-23] MEDS: Insulin NOVOLOG SS MILD Algorithm (SS with meals and bedtime) SC SCH (21:00)
[2017-01-23] MEDS ORDERED: GLUCAGON 1 MG INJ IM PRN (21:00)
[2017-01-23] MEDS ORDERED: IBUPROFEN 600 MG TAB PO PRN (21:00)
[2017-01-23] MEDS ORDERED: GLUCOSE GEL 15 GRAM TUBE PO PRN ×2 (21:00)
[2017-01-23] MEDS ORDERED: DEXTROSE 50% 50 ML SYRINGE IV PRN ×2 (21:00)
[2017-01-23] MEDS ORDERED: GLUCOSE GEL 15 GRAM TUBE BUCCAL PRN (21:00)
[2017-01-23] MEDS: ATORVASTATIN 80 MG TAB PO SCH (21:30)
[2017-01-23] MEDS: ALBUTEROL/IPRATROPIUM (NEB) 3 ML AMP HHN SCH (21:37)
[2017-01-23] MEDS: HEPARIN 5,000 UNIT/0.5 ML VIAL SC SCH (21:38)
[2017-01-23] MEDS: INSULIN GLARGINE [LANtus] 3 ML PEN SC SCH (21:45)
[2017-01-23] MEDS ORDERED: ALPRAZOLAM 0.5 MG TAB PO PRN (23:30)
[2017-01-24 00:46] LABS: ADD UMIC YES; UR BILIRUBIN (Dip) 2+ (NEGATIVE); UR BLOOD (Dip) 2+ (NEGATIVE); UR CLARITY CLEAR (CLEAR); UR COLOR YELLOW (YELLOW); UR GLUCOSE (Dip) NEGATIVE (NEGATIVE); UR KETONES (Dip) 3+ (NEGATIVE); UR LEUKOCYTE ESTERASE (Dip) NEGATIVE (NEGATIVE); UR NITRITE (Dip) NEGATIVE (NEGATIVE); UR TOTAL PROTEIN (Dip) 1+ (NEGATIVE); UR UROBILINOGEN (Dip) 4.0 E.U./dL (0.1-1.0)
[2017-01-24 01:01] LABS: ICTOTEST NEGATIVE (NEGATIVE)
[2017-01-24 01:03] LABS: UR BACTERIA FEW; UR MUCUS FEW; UR SQUAMOUS EPITHELIAL CELL FEW
[2017-01-24] MEDS: ALBUTEROL/IPRATROPIUM (NEB) 3 ML AMP HHN SCH ×6 (01:27→21:16)
[2017-01-24] MEDS: ACCUCHECK AT 2AM (Patients on SS coverage) XX SCH (02:00)
[2017-01-24] MEDS ORDERED: MAGNESIUM HYDROXIDE 30ML CUP PO PRN (03:30)
[2017-01-24] MEDS ORDERED: LACTULOSE 30ML CUP PO PRN (03:30)
[2017-01-24] MEDS ORDERED: BISACODYL 10 MG SUPP PR PRN (03:30)
[2017-01-24] MEDS: Insulin NOVOLOG SS MILD Algorithm (SS with meals and bedtime) SC SCH ×4 (07:05→21:00)
[2017-01-24 07:38] LABS: ADD SCAN DIFF NO
[2017-01-24 07:43] LABS: BASOPHIL # 0.1 10^3/ul (0.0-0.1); BASOPHILS % 0.7 % (0.0-2.0); EOSINOPHILS # 0.2 10^3/ul (0.0-0.5); EOSINOPHILS % 1.9 % (0.0-7.0); HEMOGLOBIN 14.5 g/dl (14.0-18.0); LYMPHOCYTES # 2.3 10^3/ul (0.8-2.9); LYMPHOCYTES % 23.7 % (15.0-51.0); MEAN CORPUSCULAR HEMOGLOBIN 31.5 pg (29.0-33.0); MEAN CORPUSCULAR HGB CONC 34.5 g/dl (32.0-37.0); MEAN CORPUSCULAR VOLUME 91.1 fl (82.0-101.0); MEAN PLATELET VOLUME 9.8 fl (7.4-10.4); MONOCYTE # 0.6 10^3/ul (0.3-0.9); NEUTROPHIL # 6.5 10^3/ul (1.6-7.5); NEUTROPHILS % 67.2 % (39.0-77.0); PLATELET COUNT 265 10^3/UL (140-415); RED BLOOD COUNT 4.61 10^6/ul (4.70-6.10); RED CELL DISTRIBUTION WIDTH 12.1 % (11.5-14.5); WHITE BLOOD COUNT 9.6 10^3/ul (4.8-10.8)
[2017-01-24 08:00] VITALS: BP 135/72; PULSE 99; RESP 18
[2017-01-24 08:11] LABS: ALBUMIN 4.7 g/dl (3.3-4.9); ALBUMIN/GLOBULIN RATIO 1.51; BILIRUBIN,INDIRECT 0.6 mg/dl (0-1.1); BILIRUBIN,TOTAL 0.6 mg/dl (0.2-1.3); CALCIUM 9.7 mg/dl (8.4-10.2); CREATININE 0.72 mg/dl (0.61-1.24); POTASSIUM 4.2 mmol/L (3.5-5.1); TOTAL PROTEIN 7.8 g/dl (6.1-8.1)
[2017-01-24] MEDS: INSULIN ASPART [NOVOLOG] 3 ML PEN SC SCH ×3 (08:24→17:24)
[2017-01-24] MEDS: HEPARIN 5,000 UNIT/0.5 ML VIAL SC SCH ×2 (08:34→21:37)
[2017-01-24] MEDS: ASPIRIN (EC) 325 MG TAB PO SCH (08:35)
[2017-01-24] MEDS: METOPROLOL (XL) 50 MG TAB PO SCH (08:35)
[2017-01-24] MEDS: LOSARTAN 50 MG TAB PO SCH (08:36)
--- NOTE | 2017-01-24 12:14 | CONS ---
DATE OF ADMISSION: 01/23/2017 DATE OF CONSULTATION: 01/24/2017 REHABILITATION POST ADMISSION PHYSICIAN EVALUATION REHABILITATION IMPAIRMENT CATEGORY: Right internal capsule infarct cerebrovascular accident, with left-sided weakness. ACTIVE COMORBIDITIES: 1. Hypertension. 2. Diabetes mellitus type 2. 3. Anxiety and depression. 4. Osteoarthritis. 5. History of transient ischemic attack and cerebrovascular accident. 6. Impairments in self-care, mobility and cognition HISTORY OF PRESENT ILLNESS: The patient is a 46-year-old gentleman with a history of hypertension and diabetes mellitus, who was admitted with left-sided weakness. A head CT was negative for a bleed and a repeat head CT did demonstrate an ischemic infarct in the posterior limb of the right internal capsule. The patient was treated with aspirin and Lipitor. The patient has been notable significant impairments in self-care and mobility as compared to baseline, and has been cleared to transfer to the rehabilitation unit for comprehensive interdisciplinary rehab care. FUNCTIONAL HISTORY: Prior to recent events, he was independent in self-care tasks and mobility. Currently he requires maximal assist of 1 to 2 people for self-care and mobility tasks. I have reviewed the preadmission screen and the patient's current functional status is consistent with the preadmission screen. SOCIAL HISTORY: The patient lives at home and hopes to return there upon discharge. PAST MEDICAL HISTORY: 1. Diabetes mellitus type 2. 2. Hypertension. 3. Anxiety and depression. 4. Degenerative joint disease. CURRENT MEDICATIONS: 1. Losartan 50 mg p.o. daily. 2. Toprol-XL. 3. Motrin p.r.n. 4. Insulin sliding scale. 5. Lantus 24 units subcutaneous daily. 6. Aspirin 325 p.o. daily. 7. Colace b.i.d. p.r.n. 8. Drisdol. ALLERGIES 1. MORPHINE. 2. CODEINE. 3. HYDROCODONE. 4. ACETAMINOPHEN. PHYSICAL EXAMINATION: VITAL SIGNS: The patient is currently afebrile, with stable vital signs. HEENT: Extraocular motions appear intact. Oropharynx clear. NECK: Supple. LUNGS: Clear anteriorly. CARDIAC: S1, S2. ABDOMEN: Soft, nontender. Positive bowel sounds. NEUROLOGIC: He is awake, alert and oriented x3. He can follow simple 1-step commands. He demonstrates antigravity strength in the right upper and lower extremities, has a flaccid left upper extremity and lower extremity. PLAN: The patient has been admitted for comprehensive interdisciplinary acute rehab and is anticipated to tolerate 3 hours of daily therapy in divided doses for at least 5/7 days a week. Treatment plan will include: 1. Physical therapy to focus on bed mobility, transfers, and wheelchair mobility, with the goal of having the patient reach min assist at the wheelchair level. 2. Occupational therapy to focus on hygiene, grooming, dressing, bathing, and toileting activities, with the goal of having the patient reach standby to min assist at the wheelchair level. 3. Speech therapy for dysphagia management and full cognitive assessment and retraining, with the goal of having the patient meet nutritional needs by mouth and return to baseline cognition. 4. Rehabilitation nursing for carryover of therapeutic interventions, with the goal of continent of bowel and bladder, and the goal of patient and family education with regards to the aforementioned issues. ESTIMATED LENGTH OF STAY: 14 days. DISPOSITION GOAL: Home. Rehabilitation Barrier: Cognition Intervention for barrier: speech therapy I acknowledge that I performed a full physical examination on this patient within 24 hours of admission to the rehabilitation unit and believe the patient is a good candidate for comprehensive interdisciplinary rehab care and is anticipated to make reasonable goals in a reasonable period of time, as outlined above. Dictated By: JACQUI RIOS/ILIA Conf#: [id number] DID#: [id number] MTDD
--- NOTE | 2017-01-24 13:03 | PN ---
Date/Time of Note Date/Time of Note DATE: 01/24/17 TIME: 13:01 Assessment/Plan VTE Prophylaxis VTE Prophylaxis Intervention: heparin Lines/Catheters Urinary Cath still in place: Yes Reason Cath still needed: urinary retention Assessment/Plan Problems: (1) Essential hypertension Status: Chronic Comment: Continue his antihypertensive regimen and modify as needed. Check for postvoid residual (2) Hyperlipidemia associated with type 2 diabetes mellitus Status: Chronic Comment: Statin therapy at full dose (3) Diabetes mellitus type 2 in obese Status: Chronic Comment: Sugar control is good (4) Morbid obesity due to excess calories Status: Chronic Comment: Calorie restriction diet (5) Status post CVA Status: Acute Comment: For rehabilitative services. We will try and inspire him to be as aggressive about pushing for himself as possible Assessment/Plan Check vitamin D levels and not entirely clear why he is on high-dose vitamin D once a week. Subjective 24 Hr Interval Summary Free Text/Dictation Patient sitting in chair eating lunch. He reports that he is a little bit tired with his first day but is looking forward to not having to do anything tomorrow Constitutional: no complaints Respiratory: no complaints Cardiovascular: no complaints Gastrointestinal: no complaints Exam/Review of Systems Vital Signs Vitals Vital Signs Date Time Temp Pulse Resp B/P Pulse Ox O2 Delivery O2 Flow Rate FiO2 01/24/17 12:23 84 20 96 21 01/24/17 08:00 98.0 135/72 Room Air Intake and Output 01/23/17 01/23/17 01/24/17 15:00 23:00 07:00 Output Total 800 ml Balance -800 ml Exam Constitutional: alert, oriented Neck: non-tender, supple Respiratory: clear to auscultation, normal air movement Cardiovascular: nl pulses, regular rate and rhythm Neurological: other (Left hemiparesis) Results Result Diagram: 01/24/1718 01/24/1718 Results 24 hrs Laboratory Tests Test 01/23/17 22:15 01/24/17 06:18 01/24/17 07:55 01/24/17 11:51 Urine Color YELLOW Urine Clarity CLEAR Urine pH 6.0 Urine Specific [place] >=1.030 H Urine Ketones 3+ H Urine Nitrite NEGATIVE Urine Bilirubin 2+ H Urine Ictotest NEGATIVE Urine Urobilinogen 4.0 E.U./dL H Urine Leukocyte Esterase NEGATIVE Urine Microscopic RBC 5-10 Urine Microscopic WBC 0-2 Urine Squamous Epithelial Cells FEW Urine Bacteria FEW Urine Mucus FEW Urine Hemoglobin 2+ H Urine Glucose NEGATIVE Urine Total Protein 1+ H White Blood Count 9.6 Red Blood Count 4.61 L Hemoglobin 14.5 Hematocrit 42.0 Mean Corpuscular Volume 91.1 Mean Corpuscular Hemoglobin 31.5 Mean Corpuscular Hemoglobin Concent 34.5 Red Cell Distribution Width 12.1 Platelet Count 265 Mean Platelet Volume 9.8 Neutrophils % 67.2 Lymphocytes % 23.7 Monocytes % 6.0 Eosinophils % 1.9 Basophils % 0.7 Nucleated Red Blood Cells % 0.0 Neutrophils # 6.5 Lymphocytes # 2.3 Monocytes # 0.6 Eosinophils # 0.2 Basophils # 0.1 Nucleated Red Blood Cells # 0.0 Sodium Level 140 Potassium Level 4.2 Chloride Level 107 Carbon Dioxide Level 23 Anion Gap 14 Blood Urea Nitrogen 13 Creatinine 0.72 Glucose Level 118 Calcium Level 9.7 Total Bilirubin 0.6 Direct Bilirubin 0.00 Indirect Bilirubin 0.6 Aspartate Amino Transf (AST/SGOT) 85 H Alanine Aminotransferase (ALT/SGPT) 98 H Alkaline Phosphatase 114 Total Protein 7.8 Albumin 4.7 Globulin 3.10 Albumin/Globulin Ratio 1.51 Bedside Glucose 113 91 Medications Medications Current Medications Aspirin (Ecotrin) 325 mg DAILY PO Last administered on 01/24/17 08:35; Admin Dose 325 MG; Start 01/24/17 at 09:00 Atorvastatin Calcium (Lipitor) 80 mg DAILY@21 PO Last administered on 01/23/17 21:30; Admin Dose 80 MG; Start 01/23/17 at 21:00 Docusate Sodium (Colace) 100 mg Q12H PRN PO CONSTIPATION; Start 01/23/17 at 21: 00 Heparin Sodium (Porcine) (Heparin (5000 Units/0.5 ml)) 5,000 unit Q12 SC Last administered on 01/24/17 08:34; Admin Dose 5,000 UNIT; Start 01/23/17 at 21:00 Ibuprofen (Motrin) 600 mg Q6H PRN PO PAIN; Start 01/23/17 at 21:00 Diagnostic Test (Pha) (Accu-Chek) 1 ea 02 XX ; Start 01/24/17 at 02:00 Insulin Glargine (Lantus) 24 unit HS SC Last administered on 01/23/17 21:45; Admin Dose 24 UNIT; Start 01/23/17 at 21:00 Miscellaneous Information 1 ea NOTE XX ; Start 01/23/17 at 21:00 Glucose (Glutose) 15 gm Q15M PRN PO DECREASED GLUCOSE; Start 01/23/17 at 21:00 Glucose (Glutose) 22.5 gm Q15M PRN PO DECREASED GLUCOSE; Start 01/23/17 at 21:00 Dextrose (D50w Syringe) 25 ml Q15M PRN IV DECREASED GLUCOSE; Start 01/23/17 at 21:00 Dextrose (D50w Syringe) 50 ml Q15M PRN IV DECREASED GLUCOSE; Start 01/23/17 at 21:00 Glucagon (Glucagen) 1 mg Q15M PRN IM DECREASED GLUCOSE; Start 01/23/17 at 21:00 Glucose (Glutose) 15 gm Q15M PRN BUCCAL DECREASED GLUCOSE; Start 01/23/17 at 21: 00 Losartan Potassium (Cozaar) 50 mg DAILY PO Last administered on 01/24/17 08:36 ; Admin Dose 50 MG; Start 01/24/17 at 09:00 Metoprolol Succinate (Toprol Xl) 50 mg DAILY PO Last administered on 01/24/17 08:35; Admin Dose 50 MG; Start 01/24/17 at 09:00 Ergocalciferol (Drisdol) 50,000 unit Q7D PO ; Start 01/28/17 at 09:00 Alprazolam (Xanax) 0.25 mg Q12H PRN PO ANXIETY; Start 01/23/17 at 23:30 Bisacodyl (Dulcolax Supp) 10 mg DAILY PRN [place] CONSTIPATION; Start 01/24/17 at 03 :30 Magnesium Hydroxide (Milk Of Mag) 30 ml BID PRN PO CONSTIPATION; Start at 03:30 Lactulose (Enulose) 20 gm DAILY PRN PO CONSTIPATION; Start 01/24/17 at 03:30 YULY WALKER MD Jan 24, 2017 13:03
[2017-01-24 20:00] VITALS: BP 136/74; RESP 20
[2017-01-24] MEDS: ATORVASTATIN 80 MG TAB PO SCH (21:37)
[2017-01-24] MEDS: INSULIN GLARGINE [LANtus] 3 ML PEN SC SCH (21:44)
[2017-01-25] MEDS: ALBUTEROL/IPRATROPIUM (NEB) 3 ML AMP HHN SCH ×6 (01:00→21:35)
[2017-01-25] MEDS: ACCUCHECK AT 2AM (Patients on SS coverage) XX SCH (02:00)
--- NOTE | 2017-01-25 03:24 | HP ---
DATE OF ADMISSION: 01/23/2017 HISTORY OF PRESENT ILLNESS: Briefly, this is a 46-year-old gentleman with history of type 2 diabete s, hypertension, depression, PTSD, arthritis, cerebrovascular disease status post prior CVAs, who mo st recently was admitted to [facility] on 01/17/2017 for acute onset left-si ded weakness and facial droop. He had an extensive workup and was evaluated initially for possible systemic thrombolysis and was deemed not to be a candidate. He was also evaluated there by neurolog y and ultimately was noted to be a candidate for rehabilitation given the subacute right internal ca psule cerebrovascular accident with left-sided motor weakness. PAST MEDICAL HISTORY: Notable for hypertensive heart disease, diabetes, anxiety, osteoarthritis, ce rebrovascular disease. MEDICATIONS: Please see MAR. ALLERGIES: 1. MORPHINE. 2. CODEINE. 3. HYDROCODONE. 4. ACETAMINOPHEN. SOCIAL HISTORY: No tobacco, alcohol or illicit drug use. FAMILY HISTORY: Noncontributory. REVIEW OF SYSTEMS: As noted in the HPI. PHYSICAL EXAMINATION: GENERAL: An obese gentleman in no acute distress. VITAL SIGNS: Heart rate is 85, blood pressure is 135/72, and oxygen saturation is 98% on room air. HEENT: Normocephalic, atraumatic. NECK: Supple, no thyromegaly, jugular venous pressures are difficult to assess. CHEST: Lungs are clear. CARDIOVASCULAR: Regular rate and rhythm, S1, S2. No murmurs, rubs, or gallops. ABDOMEN: Large, obese, soft, nontender. EXTREMITIES: No cyanosis, clubbing or edema. NEUROLOGICALLY: He demonstrates weakness in the left upper extremity and lower extremity at 1 to 2/ 5. LABORATORY DATA: WBC is 9.6, hemoglobin is 14.5. Chemistries are within normal limits. AST is 85, ALT is 98%. IMPRESSION: 1. 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 2. Hypertensive heart disease. 3. Diabetes. 4. Arthritis. 5. Transaminitis. RECOMMENDATIONS: 1. Blood pressure control. 2. Continuation of antiplatelet therapy with aspirin. 3. Will recheck transaminases and obtain a right upper quadrant ultrasound to evaluate abnormal bar er tests. 4. Blood pressure management and insulin sliding scale in addition to Lantus as prescribed. 5. Appreciate input by physical medicine and rehab as well as endocrinology. Dictated By: CAS FREIRE MD NK/NTS Conf#: [id number] DID#: [id number] CC: DULCE ROSE MD;*EndCC*
[2017-01-25] MEDS: Insulin NOVOLOG SS MILD Algorithm (SS with meals and bedtime) SC SCH ×4 (07:05→20:59)
[2017-01-25] MEDS: INSULIN ASPART [NOVOLOG] 3 ML PEN SC SCH ×3 (08:09→17:25)
--- NOTE | 2017-01-25 08:48 | PN ---
Date/Time of Note Date/Time of Note DATE: 01/25/17 TIME: 08:47 Assessment/Plan VTE Prophylaxis VTE Prophylaxis Intervention: anti-embolic stocking Lines/Catheters IV Catheter Type (from Nrs): Saline Lock Urinary Cath still in place: Yes Reason Cath still needed: urinary retention Assessment/Plan Problems: (1) Essential hypertension Status: Chronic Comment: Adequate control on current medication regimen without medication side effects (2) Hyperlipidemia associated with type 2 diabetes mellitus Status: Chronic Comment: Good control without medication side effects on statin therapy (3) Diabetes mellitus type 2 in obese Status: Chronic Comment: Excellent glycemic control without hypoglycemia (4) Morbid obesity due to excess calories Status: Chronic Comment: Calorie restriction diet (5) Status post CVA Status: Acute Comment: Continue rehabilitative care Subjective 24 Hr Interval Summary Free Text/Dictation Lying in bed easily aroused Constitutional: no complaints Respiratory: no complaints Cardiovascular: no complaints Gastrointestinal: no complaints Genitourinary: no complaints Exam/Review of Systems Vital Signs Vitals Vital Signs Date Time Temp Pulse Resp B/P Pulse Ox O2 Delivery O2 Flow Rate FiO2 01/25/17 04:31 82 18 96 Nasal Cannula 1.0 01/24/17 20:00 98.7 136/74 01/24/17 16:38 21 Intake and Output 01/24/17 01/24/17 01/25/17 15:00 23:00 07:00 Intake Total 1200 ml 1570 ml 240 ml Output Total 500 ml 1100 ml Balance 1200 ml 1070 ml -860 ml Exam Neck: non-tender, supple Respiratory: clear to auscultation, normal air movement Cardiovascular: nl pulses, regular rate and rhythm Results Result Diagram: 01/24/1718 01/24/17 0618 Results 24 hrs Laboratory Tests Test 01/24/17 11:51 01/24/17 17:18 01/24/17 21:40 01/25/17 07:55 Bedside Glucose 91 100 87 102 Medications Medications Current Medications Aspirin (Ecotrin) 325 mg DAILY PO Last administered on 01/24/17 08:35; Admin Dose 325 MG; Start 01/24/17 at 09:00 Atorvastatin Calcium (Lipitor) 80 mg DAILY@21 PO Last administered on 21:37; Admin Dose 80 MG; Start 01/23/17 at 21:00 Docusate Sodium (Colace) 100 mg Q12H PRN PO CONSTIPATION; Start 01/23/17 at 21: 00 Heparin Sodium (Porcine) (Heparin (5000 Units/0.5 ml)) 5,000 unit Q12 SC Last administered on 01/24/17 21:37; Admin Dose 5,000 UNIT; Start 01/23/17 at 21:00 Ibuprofen (Motrin) 600 mg Q6H PRN PO PAIN; Start 01/23/17 at 21:00 Diagnostic Test (Pha) (Accu-Chek) 1 ea 02 XX ; Start 01/24/17 at 02:00 Insulin Glargine (Lantus) 24 unit HS SC Last administered on 01/24/17 21:44; Admin Dose 24 UNIT; Start 01/23/17 at 21:00 Miscellaneous Information 1 ea NOTE XX ; Start 01/23/17 at 21:00 Glucose (Glutose) 15 gm Q15M PRN PO DECREASED GLUCOSE; Start 01/23/17 at 21:00 Glucose (Glutose) 22.5 gm Q15M PRN PO DECREASED GLUCOSE; Start 01/23/17 at 21:00 Dextrose (D50w Syringe) 25 ml Q15M PRN IV DECREASED GLUCOSE; Start 01/23/17 at 21:00 Dextrose (D50w Syringe) 50 ml Q15M PRN IV DECREASED GLUCOSE; Start 01/23/17 at 21:00 Glucagon (Glucagen) 1 mg Q15M PRN IM DECREASED GLUCOSE; Start 01/23/17 at 21:00 Glucose (Glutose) 15 gm Q15M PRN BUCCAL DECREASED GLUCOSE; Start 01/23/17 at 21: 00 Losartan Potassium (Cozaar) 50 mg DAILY PO Last administered on 01/24/17 08:36 ; Admin Dose 50 MG; Start 01/24/17 at 09:00 Metoprolol Succinate (Toprol Xl) 50 mg DAILY PO Last administered on 01/24/17 08:35; Admin Dose 50 MG; Start 01/24/17 at 09:00 Ergocalciferol (Drisdol) 50,000 unit Q7D PO ; Start 01/28/17 at 09:00 Bisacodyl (Dulcolax Supp) 10 mg DAILY PRN [place] CONSTIPATION; Start 01/24/17 at 03 :30 Magnesium Hydroxide (Milk Of Mag) 30 ml BID PRN PO CONSTIPATION; Start at 03:30 Lactulose (Enulose) 20 gm DAILY PRN PO CONSTIPATION; Start 01/24/17 at 03:30 Alprazolam (Xanax) 0.5 mg Q6H PRN PO ANXIETY; Start 01/24/17 at 21:00 YULY WALKER MD Jan 25, 2017 08:48
[2017-01-25] MEDS: ASPIRIN (EC) 325 MG TAB PO SCH (09:22)
[2017-01-25] MEDS: LOSARTAN 50 MG TAB PO SCH (09:22)
[2017-01-25] MEDS: HEPARIN 5,000 UNIT/0.5 ML VIAL SC SCH ×2 (09:23→21:02)
[2017-01-25] MEDS: METOPROLOL (XL) 50 MG TAB PO SCH (09:23)
--- NOTE | 2017-01-25 10:04 | RADRPT ---
PROCEDURE: US Abdomen. CLINICAL INDICATION: Elevated liver function test. Morbid obesity. TECHNIQUE: Multiple real-time images were acquired of the patient's abdomen and retroperitoneum ut ilizing a high resolution transducer. COMPARISON: None FINDINGS: Left hand body of the pancreas are normal. The tail of the pancreas is obscured by bowel gas. The liver is echogenic and has a slightly nodular border. Liver is enlarged measuring 17.6 cm in le ngth. The gallbladder wall is thickened measuring 3.6 mm. There is no evidence of cholelithiasis. The common bile duct measured the common bile duct measures 4.8 mm. The right kidney measures 11.4 cm in length. IMPRESSION: 1. Increased echogenicity of the liver is noted and most commonly as a result of fatty infiltration. Steatohepatitis, vacuolar degeneration and cirrhosis of the liver are other causes. 2. Limited abdominal sonogram demonstrating hepatomegaly and diffuse gallbladder wall thickening. Th e latter could be the result of acalculous acute cholecystitis, xanthogranulomatous, acute cholecyst itis, chronic cholecystitis or adenomyomatosis. Systemic diseases including liver dysfunction, dayday l failure and heart failure can result in diffuse gallbladder wall thickening. Clinical correlation is needed. 3. Normal common bile duct. RPTAT:AAJJ Physician Conrad Date Time Electronically viewed and signed by Physician Conrad on 01/25/2017 10:03 LEONELA/
[2017-01-25] MEDS: ALPRAZOLAM 0.5 MG TAB PO PRN (16:39)
[2017-01-25 20:44] VITALS: BP 148/76; RESP 18
[2017-01-25] MEDS: ATORVASTATIN 80 MG TAB PO SCH (20:59)
[2017-01-25] MEDS: INSULIN GLARGINE [LANtus] 3 ML PEN SC SCH (21:03)
[2017-01-26] MEDS: ALBUTEROL/IPRATROPIUM (NEB) 3 ML AMP HHN SCH ×6 (01:51→21:50)
[2017-01-26] MEDS: ACCUCHECK AT 2AM (Patients on SS coverage) XX SCH (02:00)
[2017-01-26 06:10] LABS: ADD SCAN DIFF NO
[2017-01-26 06:16] LABS: BASOPHIL # 0.1 10^3/ul (0.0-0.1); BASOPHILS % 0.6 % (0.0-2.0); EOSINOPHILS # 0.2 10^3/ul (0.0-0.5); HEMATOCRIT 43.8 % (42.0-52.0); HEMOGLOBIN 14.6 g/dl (14.0-18.0); LYMPHOCYTES # 3.4 10^3/ul (0.8-2.9); LYMPHOCYTES % 31.5 % (15.0-51.0); MEAN CORPUSCULAR HEMOGLOBIN 30.4 pg (29.0-33.0); MEAN CORPUSCULAR HGB CONC 33.3 g/dl (32.0-37.0); MEAN CORPUSCULAR VOLUME 91.3 fl (82.0-101.0); MEAN PLATELET VOLUME 9.6 fl (7.4-10.4); MONOCYTE # 0.7 10^3/ul (0.3-0.9); MONOCYTES % 6.3 % (0.0-11.0); NEUTROPHIL # 6.3 10^3/ul (1.6-7.5); PLATELET COUNT 266 10^3/UL (140-415); RED CELL DISTRIBUTION WIDTH 12.4 % (11.5-14.5); WHITE BLOOD COUNT 10.7 10^3/ul (4.8-10.8)
[2017-01-26 06:46] LABS: ALBUMIN 4.4 g/dl (3.3-4.9); ALBUMIN/GLOBULIN RATIO 1.25; BILIRUBIN,INDIRECT 0.5 mg/dl (0-1.1); BILIRUBIN,TOTAL 0.5 mg/dl (0.2-1.3); CALCIUM 10.2 mg/dl (8.4-10.2); CREATININE 0.76 mg/dl (0.61-1.24); POTASSIUM 3.8 mmol/L (3.5-5.1); TOTAL PROTEIN 7.9 g/dl (6.1-8.1)
[2017-01-26] MEDS: Insulin NOVOLOG SS MILD Algorithm (SS with meals and bedtime) SC SCH ×4 (07:05→21:00)
[2017-01-26 07:30] VITALS: BP 134/72; RESP 18
[2017-01-26] MEDS: INSULIN ASPART [NOVOLOG] 3 ML PEN SC SCH ×3 (08:12→18:03)
[2017-01-26] MEDS: HEPARIN 5,000 UNIT/0.5 ML VIAL SC SCH ×2 (09:00→21:08)
[2017-01-26] MEDS: ASPIRIN (EC) 325 MG TAB PO SCH (09:12)
[2017-01-26] MEDS: METOPROLOL (XL) 50 MG TAB PO SCH (09:20)
[2017-01-26] MEDS: LOSARTAN 50 MG TAB PO SCH (09:20)
--- NOTE | 2017-01-26 11:53 | CONS ---
Date/Time of Note Date/Time of Note DATE: 01/26/17 TIME: 11:51 Consult Date/Type/Reason Admit Date/Time Jan 23, 2017 at 18:46 Initial Consult Date Objective Vital Signs Date Time Temp Pulse Resp B/P Pulse Ox O2 Delivery O2 Flow Rate FiO2 01/26/17 09:46 1.0 01/26/17 07:30 98.8 91 18 134/72 97 01/26/17 05:25 21 01/25/17 08:39 Nasal Cannula Intake and Output 01/25/17 01/25/17 01/26/17 15:00 23:00 07:00 Intake Total 960 ml Balance 960 ml INTERDISCIPLINARY TEAM CONFERENCE BOWEL- Cont BLADDER-Stevens SKIN- intact OT- DRESSING-max BATHING-max TOILETING-max PT- BED MOBILITY-max TRANSFERS-mod x 2 AMBULATION-max 1 step W.C. MOBILITY-max SPEECH- COGNITION-min A/P- Interdisciplinary team conference held today. Please see interdisciplinary sheet. Working toward d.cLatia on 02/07 with post discharge follow up of physical therapy, occupational therapy. Results/Medications Result Diagram: 01/26/17 0545 01/26/17 0545 Results 24 hrs Laboratory Tests Test 01/25/17 12:13 01/25/17 17:00 01/25/17 20:58 01/26/17 05:45 Bedside Glucose 109 110 112 White Blood Count 10.7 Red Blood Count 4.80 Hemoglobin 14.6 Hematocrit 43.8 Mean Corpuscular Volume 91.3 Mean Corpuscular Hemoglobin 30.4 Mean Corpuscular Hemoglobin Concent 33.3 Red Cell Distribution Width 12.4 Platelet Count 266 Mean Platelet Volume 9.6 Neutrophils % 59.0 Lymphocytes % 31.5 Monocytes % 6.3 Eosinophils % 2.0 Basophils % 0.6 Nucleated Red Blood Cells % 0.0 Neutrophils # 6.3 Lymphocytes # 3.4 H Monocytes # 0.7 Eosinophils # 0.2 Basophils # 0.1 Nucleated Red Blood Cells # 0.0 Sodium Level 143 Potassium Level 3.8 Chloride Level 106 Carbon Dioxide Level 25 Anion Gap 16 Blood Urea Nitrogen 13 Creatinine 0.76 Glucose Level 106 Calcium Level 10.2 Total Bilirubin 0.5 Direct Bilirubin 0.00 Indirect Bilirubin 0.5 Aspartate Amino Transf (AST/SGOT) 69 H Alanine Aminotransferase (ALT/SGPT) 99 H Alkaline Phosphatase 112 Total Protein 7.9 Albumin 4.4 Globulin 3.50 H Albumin/Globulin Ratio 1.25 Test 01/26/17 08:06 Bedside Glucose 109 Medications Current Medications Aspirin (Ecotrin) 325 mg DAILY PO Last administered on 01/26/17 09:12; Admin Dose 325 MG; Start 01/24/17 at 09:00 Atorvastatin Calcium (Lipitor) 80 mg DAILY@21 PO Last administered on 20:59; Admin Dose 80 MG; Start 01/23/17 at 21:00 Docusate Sodium (Colace) 100 mg Q12H PRN PO CONSTIPATION; Start 01/23/17 at 21: 00 Heparin Sodium (Porcine) (Heparin (5000 Units/0.5 ml)) 5,000 unit Q12 SC Last administered on 01/25/17 21:02; Admin Dose 5,000 UNIT; Start 01/23/17 at 21:00 Ibuprofen (Motrin) 600 mg Q6H PRN PO PAIN; Start 01/23/17 at 21:00 Diagnostic Test (Pha) (Accu-Chek) 1 ea 02 XX ; Start 01/24/17 at 02:00 Insulin Glargine (Lantus) 24 unit HS SC Last administered on 01/25/17 21:03; Admin Dose 24 UNIT; Start 01/23/17 at 21:00 Miscellaneous Information 1 ea NOTE XX ; Start 01/23/17 at 21:00 Glucose (Glutose) 15 gm Q15M PRN PO DECREASED GLUCOSE; Start 01/23/17 at 21:00 Glucose (Glutose) 22.5 gm Q15M PRN PO DECREASED GLUCOSE; Start 01/23/17 at 21:00 Dextrose (D50w Syringe) 25 ml Q15M PRN IV DECREASED GLUCOSE; Start 01/23/17 at 21:00 Dextrose (D50w Syringe) 50 ml Q15M PRN IV DECREASED GLUCOSE; Start 01/23/17 at 21:00 Glucagon (Glucagen) 1 mg Q15M PRN IM DECREASED GLUCOSE; Start 01/23/17 at 21:00 Glucose (Glutose) 15 gm Q15M PRN BUCCAL DECREASED GLUCOSE; Start 01/23/17 at 21: 00 Losartan Potassium (Cozaar) 50 mg DAILY PO Last administered on 01/26/17 09:20 ; Admin Dose 50 MG; Start 01/24/17 at 09:00 Metoprolol Succinate (Toprol Xl) 50 mg DAILY PO Last administered on 01/26/17 09:20; Admin Dose 50 MG; Start 01/24/17 at 09:00 Ergocalciferol (Drisdol) 50,000 unit Q7D PO ; Start 01/28/17 at 09:00 Bisacodyl (Dulcolax Supp) 10 mg DAILY PRN [place] CONSTIPATION; Start 01/24/17 at 03 :30 Magnesium Hydroxide (Milk Of Mag) 30 ml BID PRN PO CONSTIPATION; Start at 03:30 Lactulose (Enulose) 20 gm DAILY PRN PO CONSTIPATION; Start 01/24/17 at 03:30 Alprazolam (Xanax) 0.5 mg Q6H PRN PO ANXIETY Last administered on 01/25/17 16: 39; Admin Dose 0.5 MG; Start 01/24/17 at 21:00 JACQUI KING MD Jan 26, 2017 11:52
--- NOTE | 2017-01-26 13:59 | CONS ---
Date/Time of Note Date/Time of Note DATE: 01/26/17 TIME: 13:58 Consult Date/Type/Reason Admit Date/Time Jan 23, 2017 at 18:46 Initial Consult Date Type of Consultation: Internal medicine Subjective Patient comfortable this morning no new events Objective Vital Signs Date Time Temp Pulse Resp B/P Pulse Ox O2 Delivery O2 Flow Rate FiO2 01/26/17 09:46 1.0 01/26/17 07:30 98.8 91 18 134/72 97 01/26/17 05:25 21 01/25/17 08:39 Nasal Cannula Intake and Output 01/25/17 01/25/17 01/26/17 15:00 23:00 07:00 Intake Total 960 ml Balance 960 ml Exam GENERAL: Well-nourished well-developed gentleman VITAL SIGNS: per chart NECK: Supple. No JVD or lymphadenopathy. CARDIAC EXAM: S1, S2. No added sounds or murmurs. CHEST: clear bilaterally, No added sounds, rales or wheezes ABDOMEN: Soft, nontender. No guarding or rebound. EXTREMITIES: No cyanosis, clubbing or edema. NEUROLOGIC: Left hemiplegia Results/Medications Result Diagram: 01/26/17 0545 01/26/17 0545 Results 24 hrs Laboratory Tests Test 01/25/17 17:00 01/25/17 20:58 01/26/17 05:45 01/26/17 08:06 Bedside Glucose 110 112 109 White Blood Count 10.7 Red Blood Count 4.80 Hemoglobin 14.6 Hematocrit 43.8 Mean Corpuscular Volume 91.3 Mean Corpuscular Hemoglobin 30.4 Mean Corpuscular Hemoglobin Concent 33.3 Red Cell Distribution Width 12.4 Platelet Count 266 Mean Platelet Volume 9.6 Neutrophils % 59.0 Lymphocytes % 31.5 Monocytes % 6.3 Eosinophils % 2.0 Basophils % 0.6 Nucleated Red Blood Cells % 0.0 Neutrophils # 6.3 Lymphocytes # 3.4 H Monocytes # 0.7 Eosinophils # 0.2 Basophils # 0.1 Nucleated Red Blood Cells # 0.0 Sodium Level 143 Potassium Level 3.8 Chloride Level 106 Carbon Dioxide Level 25 Anion Gap 16 Blood Urea Nitrogen 13 Creatinine 0.76 Glucose Level 106 Calcium Level 10.2 Total Bilirubin 0.5 Direct Bilirubin 0.00 Indirect Bilirubin 0.5 Aspartate Amino Transf (AST/SGOT) 69 H Alanine Aminotransferase (ALT/SGPT) 99 H Alkaline Phosphatase 112 Total Protein 7.9 Albumin 4.4 Globulin 3.50 H Albumin/Globulin Ratio 1.25 Test 01/26/17 12:02 Bedside Glucose 123 Medications Current Medications Aspirin (Ecotrin) 325 mg DAILY PO Last administered on 01/26/17 09:12; Admin Dose 325 MG; Start 01/24/17 at 09:00 Atorvastatin Calcium (Lipitor) 80 mg DAILY@21 PO Last administered on 20:59; Admin Dose 80 MG; Start 01/23/17 at 21:00 Docusate Sodium (Colace) 100 mg Q12H PRN PO CONSTIPATION; Start 01/23/17 at 21: 00 Heparin Sodium (Porcine) (Heparin (5000 Units/0.5 ml)) 5,000 unit Q12 SC Last administered on 01/25/17 21:02; Admin Dose 5,000 UNIT; Start 01/23/17 at 21:00 Ibuprofen (Motrin) 600 mg Q6H PRN PO PAIN; Start 01/23/17 at 21:00 Diagnostic Test (Pha) (Accu-Chek) 1 ea 02 XX ; Start 01/24/17 at 02:00 Insulin Glargine (Lantus) 24 unit HS SC Last administered on 01/25/17 21:03; Admin Dose 24 UNIT; Start 01/23/17 at 21:00 Miscellaneous Information 1 ea NOTE XX ; Start 01/23/17 at 21:00 Glucose (Glutose) 15 gm Q15M PRN PO DECREASED GLUCOSE; Start 01/23/17 at 21:00 Glucose (Glutose) 22.5 gm Q15M PRN PO DECREASED GLUCOSE; Start 01/23/17 at 21:00 Dextrose (D50w Syringe) 25 ml Q15M PRN IV DECREASED GLUCOSE; Start 01/23/17 at 21:00 Dextrose (D50w Syringe) 50 ml Q15M PRN IV DECREASED GLUCOSE; Start 01/23/17 at 21:00 Glucagon (Glucagen) 1 mg Q15M PRN IM DECREASED GLUCOSE; Start 01/23/17 at 21:00 Glucose (Glutose) 15 gm Q15M PRN BUCCAL DECREASED GLUCOSE; Start 01/23/17 at 21: 00 Losartan Potassium (Cozaar) 50 mg DAILY PO Last administered on 01/26/17 09:20 ; Admin Dose 50 MG; Start 01/24/17 at 09:00 Metoprolol Succinate (Toprol Xl) 50 mg DAILY PO Last administered on 01/26/17 09:20; Admin Dose 50 MG; Start 01/24/17 at 09:00 Ergocalciferol (Drisdol) 50,000 unit Q7D PO ; Start 01/28/17 at 09:00 Bisacodyl (Dulcolax Supp) 10 mg DAILY PRN [place] CONSTIPATION; Start 01/24/17 at 03 :30 Magnesium Hydroxide (Milk Of Mag) 30 ml BID PRN PO CONSTIPATION; Start at 03:30 Lactulose (Enulose) 20 gm DAILY PRN PO CONSTIPATION; Start 01/24/17 at 03:30 Alprazolam (Xanax) 0.5 mg Q6H PRN PO ANXIETY Last administered on 01/25/17 16: 39; Admin Dose 0.5 MG; Start 01/24/17 at 21:00 Assessment/Plan Chief Complaint/Hosp Course IMPRESSION: 1. 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 2. Hypertensive heart disease. 3. Diabetes. 4. Arthritis. 5. Transaminitis. RECOMMENDATIONS: 1. Blood pressure control. 2. Continuation of antiplatelet therapy with aspirin. 3. Check transaminases 4. Blood pressure management and insulin sliding scale in addition to Lantus as prescribed. 5. Appreciate input by physical medicine and rehab as well as endocrinology. Problems: DULCE ROSE MD, [facility] Jan 26, 2017 13:59
[2017-01-26 20:00] VITALS: BP 129/66; RESP 18
[2017-01-26] MEDS: ATORVASTATIN 80 MG TAB PO SCH (21:00)
[2017-01-26] MEDS: INSULIN GLARGINE [LANtus] 3 ML PEN SC SCH (21:09)
[2017-01-27] MEDS: ALBUTEROL/IPRATROPIUM (NEB) 3 ML AMP HHN SCH ×6 (01:50→19:24)
[2017-01-27] MEDS: ACCUCHECK AT 2AM (Patients on SS coverage) XX SCH (02:00)
[2017-01-27 07:31] VITALS: BP 130/68; RESP 18
[2017-01-27] MEDS: INSULIN ASPART [NOVOLOG] 3 ML PEN SC SCH ×3 (08:08→17:05)
[2017-01-27] MEDS: Insulin NOVOLOG SS MILD Algorithm (SS with meals and bedtime) SC SCH ×4 (08:09→20:24)
[2017-01-27] MEDS: ASPIRIN (EC) 325 MG TAB PO SCH (09:08)
[2017-01-27] MEDS: HEPARIN 5,000 UNIT/0.5 ML VIAL SC SCH ×2 (09:11→20:22)
[2017-01-27] MEDS: METOPROLOL (XL) 50 MG TAB PO SCH (09:23)
[2017-01-27] MEDS: LOSARTAN 50 MG TAB PO SCH (09:27)
--- NOTE | 2017-01-27 12:06 | CONS ---
Date/Time of Note Date/Time of Note DATE: 01/27/17 TIME: 12:06 Consult Date/Type/Reason Admit Date/Time Jan 23, 2017 at 18:46 Type of Consultation: Internal medicine Subjective still with diplopia Objective pulm-cta mod x 2 transfer Vital Signs Date Time Temp Pulse Resp B/P Pulse Ox O2 Delivery O2 Flow Rate FiO2 01/27/17 07:31 98.4 83 18 130/68 97 01/27/17 04:57 21 01/26/17 09:46 1.0 01/25/17 08:39 Nasal Cannula Intake and Output 01/26/17 01/26/17 01/27/17 15:00 23:00 07:00 Intake Total 620 ml 800 ml Output Total 800 ml Balance -180 ml 800 ml Results/Medications Result Diagram: 01/26/17 0545 01/26/17 0545 Results 24 hrs Laboratory Tests Test 01/26/17 17:28 01/26/17 21:02 01/27/17 07:55 Bedside Glucose 109 90 107 Medications Current Medications Aspirin (Ecotrin) 325 mg DAILY PO Last administered on 01/27/17 09:08; Admin Dose 325 MG; Start 01/24/17 at 09:00 Atorvastatin Calcium (Lipitor) 80 mg DAILY@21 PO Last administered on 20:59; Admin Dose 80 MG; Start 01/23/17 at 21:00 Docusate Sodium (Colace) 100 mg Q12H PRN PO CONSTIPATION; Start 01/23/17 at 21: 00 Heparin Sodium (Porcine) (Heparin (5000 Units/0.5 ml)) 5,000 unit Q12 SC Last administered on 01/27/17 09:11; Admin Dose 5,000 UNIT; Start 01/23/17 at 21:00 Ibuprofen (Motrin) 600 mg Q6H PRN PO PAIN; Start 01/23/17 at 21:00 Diagnostic Test (Pha) (Accu-Chek) 1 ea 02 XX ; Start 01/24/17 at 02:00 Insulin Glargine (Lantus) 24 unit HS SC Last administered on 01/26/17 21:09; Admin Dose 24 UNIT; Start 01/23/17 at 21:00 Miscellaneous Information 1 ea NOTE XX ; Start 01/23/17 at 21:00 Glucose (Glutose) 15 gm Q15M PRN PO DECREASED GLUCOSE; Start 01/23/17 at 21:00 Glucose (Glutose) 22.5 gm Q15M PRN PO DECREASED GLUCOSE; Start 01/23/17 at 21:00 Dextrose (D50w Syringe) 25 ml Q15M PRN IV DECREASED GLUCOSE; Start 01/23/17 at 21:00 Dextrose (D50w Syringe) 50 ml Q15M PRN IV DECREASED GLUCOSE; Start 01/23/17 at 21:00 Glucagon (Glucagen) 1 mg Q15M PRN IM DECREASED GLUCOSE; Start 01/23/17 at 21:00 Glucose (Glutose) 15 gm Q15M PRN BUCCAL DECREASED GLUCOSE; Start 01/23/17 at 21: 00 Losartan Potassium (Cozaar) 50 mg DAILY PO Last administered on 01/27/17 09:27 ; Admin Dose 50 MG; Start 01/24/17 at 09:00 Metoprolol Succinate (Toprol Xl) 50 mg DAILY PO Last administered on 01/27/17 09:23; Admin Dose 50 MG; Start 01/24/17 at 09:00 Ergocalciferol (Drisdol) 50,000 unit Q7D PO ; Start 01/28/17 at 09:00 Bisacodyl (Dulcolax Supp) 10 mg DAILY PRN [place] CONSTIPATION; Start 01/24/17 at 03 :30 Magnesium Hydroxide (Milk Of Mag) 30 ml BID PRN PO CONSTIPATION; Start at 03:30 Lactulose (Enulose) 20 gm DAILY PRN PO CONSTIPATION; Start 01/24/17 at 03:30 Alprazolam (Xanax) 0.5 mg Q6H PRN PO ANXIETY Last administered on 01/25/17 16: 39; Admin Dose 0.5 MG; Start 01/24/17 at 21:00 Assessment/Plan Additional Assessment/Plan Rehab- Right internal capsule infarct cerebrovascular accident, with left-sided weakness. Continue rehab activities Hypertension. Diabetes mellitus type 2. Anxiety and depression. Osteoarthritis. History of transient ischemic attack and cerebrovascular accident. JACQUI KING MD Jan 27, 2017 12:06
--- NOTE | 2017-01-27 15:40 | CONS ---
Date/Time of Note Date/Time of Note DATE: 01/27/17 TIME: 15:39 Consult Date/Type/Reason Admit Date/Time Jan 23, 2017 at 18:46 Type of Consultation: Internal medicine Subjective Patient comfortable this morning no new events Objective Vital Signs Date Time Temp Pulse Resp B/P Pulse Ox O2 Delivery O2 Flow Rate FiO2 01/27/17 07:31 98.4 83 18 130/68 97 01/27/17 04:57 21 01/26/17 09:46 1.0 01/25/17 08:39 Nasal Cannula Intake and Output 01/26/17 01/26/17 01/27/17 15:00 23:00 07:00 Intake Total 620 ml 800 ml Output Total 800 ml Balance -180 ml 800 ml Exam GENERAL: Well-nourished well-developed gentleman VITAL SIGNS: per chart NECK: Supple. No JVD or lymphadenopathy. CARDIAC EXAM: S1, S2. No added sounds or murmurs. CHEST: clear bilaterally, No added sounds, rales or wheezes ABDOMEN: Soft, nontender. No guarding or rebound. EXTREMITIES: No cyanosis, clubbing or edema. NEUROLOGIC: Left hemiplegia Results/Medications Result Diagram: 01/26/17 0545 01/26/17 0545 Results 24 hrs Laboratory Tests Test 01/26/17 17:28 01/26/17 21:02 01/27/17 07:55 01/27/17 12:22 Bedside Glucose 109 90 107 78 Medications Current Medications Aspirin (Ecotrin) 325 mg DAILY PO Last administered on 01/27/17 09:08; Admin Dose 325 MG; Start 01/24/17 at 09:00 Atorvastatin Calcium (Lipitor) 80 mg DAILY@21 PO Last administered on 20:59; Admin Dose 80 MG; Start 01/23/17 at 21:00 Docusate Sodium (Colace) 100 mg Q12H PRN PO CONSTIPATION; Start 01/23/17 at 21: 00 Heparin Sodium (Porcine) (Heparin (5000 Units/0.5 ml)) 5,000 unit Q12 SC Last administered on 01/27/17 09:11; Admin Dose 5,000 UNIT; Start 01/23/17 at 21:00 Ibuprofen (Motrin) 600 mg Q6H PRN PO PAIN; Start 01/23/17 at 21:00 Diagnostic Test (Pha) (Accu-Chek) 1 ea 02 XX ; Start 01/24/17 at 02:00 Insulin Glargine (Lantus) 24 unit HS SC Last administered on 01/26/17 21:09; Admin Dose 24 UNIT; Start 01/23/17 at 21:00 Miscellaneous Information 1 ea NOTE XX ; Start 01/23/17 at 21:00 Glucose (Glutose) 15 gm Q15M PRN PO DECREASED GLUCOSE; Start 01/23/17 at 21:00 Glucose (Glutose) 22.5 gm Q15M PRN PO DECREASED GLUCOSE; Start 01/23/17 at 21:00 Dextrose (D50w Syringe) 25 ml Q15M PRN IV DECREASED GLUCOSE; Start 01/23/17 at 21:00 Dextrose (D50w Syringe) 50 ml Q15M PRN IV DECREASED GLUCOSE; Start 01/23/17 at 21:00 Glucagon (Glucagen) 1 mg Q15M PRN IM DECREASED GLUCOSE; Start 01/23/17 at 21:00 Glucose (Glutose) 15 gm Q15M PRN BUCCAL DECREASED GLUCOSE; Start 01/23/17 at 21: 00 Losartan Potassium (Cozaar) 50 mg DAILY PO Last administered on 01/27/17 09:27 ; Admin Dose 50 MG; Start 01/24/17 at 09:00 Metoprolol Succinate (Toprol Xl) 50 mg DAILY PO Last administered on 01/27/17 09:23; Admin Dose 50 MG; Start 01/24/17 at 09:00 Ergocalciferol (Drisdol) 50,000 unit Q7D PO ; Start 01/28/17 at 09:00 Bisacodyl (Dulcolax Supp) 10 mg DAILY PRN [place] CONSTIPATION; Start 01/24/17 at 03 :30 Magnesium Hydroxide (Milk Of Mag) 30 ml BID PRN PO CONSTIPATION; Start at 03:30 Lactulose (Enulose) 20 gm DAILY PRN PO CONSTIPATION; Start 01/24/17 at 03:30 Alprazolam (Xanax) 0.5 mg Q6H PRN PO ANXIETY Last administered on 01/25/17 16: 39; Admin Dose 0.5 MG; Start 01/24/17 at 21:00 Assessment/Plan Chief Complaint/Hosp Course IMPRESSION: 1. 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 2. Hypertensive heart disease. 3. Diabetes. 4. Arthritis. 5. Transaminitis. RECOMMENDATIONS: 1. Blood pressure control. 2. Continuation of antiplatelet therapy with aspirin. 3. Check transaminases in a.m. if persistently elevated repeat ultrasound abdomen 4. Blood pressure management and insulin sliding scale in addition to Lantus as prescribed. 5. Appreciate input by physical medicine and rehab as well as endocrinology. Problems: DULCE ROSE MD, [facility] Jan 27, 2017 15:40
[2017-01-27 20:00] VITALS: BP 142/80; RESP 18
[2017-01-27] MEDS: INSULIN GLARGINE [LANtus] 3 ML PEN SC SCH (20:23)
[2017-01-27] MEDS: ATORVASTATIN 80 MG TAB PO SCH (20:24)
[2017-01-28] MEDS: ALBUTEROL/IPRATROPIUM (NEB) 3 ML AMP HHN SCH ×6 (01:00→20:57)
[2017-01-28] MEDS: ACCUCHECK AT 2AM (Patients on SS coverage) XX SCH (02:00)
[2017-01-28] MEDS: Insulin NOVOLOG SS MILD Algorithm (SS with meals and bedtime) SC SCH ×4 (07:05→20:36)
[2017-01-28] MEDS: INSULIN ASPART [NOVOLOG] 3 ML PEN SC SCH ×3 (08:29→17:05)
[2017-01-28] MEDS: ASPIRIN (EC) 325 MG TAB PO SCH (09:00)
[2017-01-28] MEDS: LOSARTAN 50 MG TAB PO SCH (09:00)
[2017-01-28] MEDS ORDERED: ERGOCALCIFEROL 50,000 UNIT CAP PO SCH (09:00)
[2017-01-28] MEDS: METOPROLOL (XL) 50 MG TAB PO SCH (09:00)
[2017-01-28] MEDS: HEPARIN 5,000 UNIT/0.5 ML VIAL SC SCH ×2 (09:00→20:35)
--- NOTE | 2017-01-28 10:50 | CONS ---
Date/Time of Note Date/Time of Note DATE: 01/28/17 TIME: 10:49 Consult Date/Type/Reason Admit Date/Time Jan 23, 2017 at 18:46 Type of Consultation: Internal medicine Subjective Comfortable Objective pulm-cta mod x 2 transfer Vital Signs Date Time Temp Pulse Resp B/P Pulse Ox O2 Delivery O2 Flow Rate FiO2 01/28/17 09:31 90 18 98 21 01/27/17 20:00 97.8 142/80 01/26/17 09:46 1.0 01/25/17 08:39 Nasal Cannula Intake and Output 01/27/17 01/27/17 01/28/17 14:59 22:59 06:59 Intake Total 960 ml 660 ml 650 ml Output Total 500 ml Balance 960 ml 160 ml 650 ml Results/Medications Result Diagram: 01/26/17 0545 01/26/17 0545 Results 24 hrs Laboratory Tests Test 01/27/17 12:22 01/27/17 17:15 01/27/17 20:17 01/28/17 07:23 Bedside Glucose 78 97 106 95 Test 01/28/17 08:25 Bedside Glucose 119 Medications Current Medications Aspirin (Ecotrin) 325 mg DAILY PO Last administered on 01/27/17 09:08; Admin Dose 325 MG; Start 01/24/17 at 09:00 Atorvastatin Calcium (Lipitor) 80 mg DAILY@21 PO Last administered on 20:59; Admin Dose 80 MG; Start 01/23/17 at 21:00 Docusate Sodium (Colace) 100 mg Q12H PRN PO CONSTIPATION; Start 01/23/17 at 21: 00 Heparin Sodium (Porcine) (Heparin (5000 Units/0.5 ml)) 5,000 unit Q12 SC Last administered on 01/27/17 20:22; Admin Dose 5,000 UNIT; Start 01/23/17 at 21:00 Ibuprofen (Motrin) 600 mg Q6H PRN PO PAIN; Start 01/23/17 at 21:00 Diagnostic Test (Pha) (Accu-Chek) 1 ea 02 XX ; Start 01/24/17 at 02:00 Insulin Glargine (Lantus) 24 unit HS SC Last administered on 01/27/17 20:23; Admin Dose 24 UNIT; Start 01/23/17 at 21:00 Miscellaneous Information 1 ea NOTE XX ; Start 01/23/17 at 21:00 Glucose (Glutose) 15 gm Q15M PRN PO DECREASED GLUCOSE; Start 01/23/17 at 21:00 Glucose (Glutose) 22.5 gm Q15M PRN PO DECREASED GLUCOSE; Start 01/23/17 at 21:00 Dextrose (D50w Syringe) 25 ml Q15M PRN IV DECREASED GLUCOSE; Start 01/23/17 at 21:00 Dextrose (D50w Syringe) 50 ml Q15M PRN IV DECREASED GLUCOSE; Start 01/23/17 at 21:00 Glucagon (Glucagen) 1 mg Q15M PRN IM DECREASED GLUCOSE; Start 01/23/17 at 21:00 Glucose (Glutose) 15 gm Q15M PRN BUCCAL DECREASED GLUCOSE; Start 01/23/17 at 21: 00 Losartan Potassium (Cozaar) 50 mg DAILY PO Last administered on 01/27/17 09:27 ; Admin Dose 50 MG; Start 01/24/17 at 09:00 Metoprolol Succinate (Toprol Xl) 50 mg DAILY PO Last administered on 01/27/17 09:23; Admin Dose 50 MG; Start 01/24/17 at 09:00 Ergocalciferol (Drisdol) 50,000 unit Q7D PO ; Start 01/28/17 at 09:00 Bisacodyl (Dulcolax Supp) 10 mg DAILY PRN [place] CONSTIPATION; Start 01/24/17 at 03 :30 Magnesium Hydroxide (Milk Of Mag) 30 ml BID PRN PO CONSTIPATION; Start at 03:30 Lactulose (Enulose) 20 gm DAILY PRN PO CONSTIPATION; Start 01/24/17 at 03:30 Alprazolam (Xanax) 0.5 mg Q6H PRN PO ANXIETY Last administered on 01/25/17 16: 39; Admin Dose 0.5 MG; Start 01/24/17 at 21:00 Assessment/Plan Additional Assessment/Plan Rehab- Right internal capsule infarct cerebrovascular accident, with left-sided weakness. Continue rehab program Hypertension. Diabetes mellitus type 2. Anxiety and depression. Osteoarthritis. History of transient ischemic attack and cerebrovascular accident. JACQUI KING MD Jan 28, 2017 10:50
[2017-01-28 11:19] LABS: BILIRUBIN,INDIRECT 0.6 mg/dl (0-1.1); BILIRUBIN,TOTAL 0.6 mg/dl (0.2-1.3); TOTAL PROTEIN 8.3 g/dl (6.1-8.1)
--- NOTE | 2017-01-28 13:56 | PN ---
DATE: 01/28/2017 SUBJECTIVE: The patient evaluated is stable this morning. No events overnight. Transferred with a ssistance. Continues physical therapy. OBJECTIVE: VITAL SIGNS: Temperature is 98, pulse is 100, blood pressure is 140/80, O2 saturation 96% on room a ir. NECK: Supple. No JVD or lymphadenopathy. CARDIAC: S1, S2, no added sounds or murmurs. CHEST: Diminished air entry bilaterally. ABDOMEN: Soft, nontender. No guarding or rebound. EXTREMITIES: No cyanosis, clubbing, edema. NEUROLOGIC: Generalized weakness. LABORATORY DATA: AST 52, ALT 73, which is resolving from previous numbers, although alkaline phosph atase remains elevated at 173. IMPRESSION AND PLAN: 1. Resolving transaminitis with elevated alkaline phosphatase, concerning for possible biliary calc kori. 2. History of recent right internal capsular CVA with left hemiparesis. 3. History of hypertension. 4. Diabetes mellitus. PLAN: 1. Continue blood pressure management. 2. Continue aspirin and Plavix. 3. Continue physical therapy. 4. We will monitor LFTs. If deteriorating, the patient may require gastroenterology evaluation for possible ERCP. Dictated By: DULCE MALIN/ILIA Conf#: [id number] DID#: [id number]
[2017-01-28 19:13] VITALS: BP 137/71; RESP 18
[2017-01-28] MEDS: ATORVASTATIN 80 MG TAB PO SCH (20:27)
[2017-01-28] MEDS: INSULIN GLARGINE [LANtus] 3 ML PEN SC SCH (20:35)
[2017-01-29] MEDS: ALBUTEROL/IPRATROPIUM (NEB) 3 ML AMP HHN SCH ×6 (01:25→20:13)
[2017-01-29] MEDS: ACCUCHECK AT 2AM (Patients on SS coverage) XX SCH (02:00)
[2017-01-29] MEDS: Insulin NOVOLOG SS MILD Algorithm (SS with meals and bedtime) SC SCH ×4 (07:05→21:00)
[2017-01-29 07:30] VITALS: BP 155/70; RESP 18
[2017-01-29] MEDS: INSULIN ASPART [NOVOLOG] 3 ML PEN SC SCH ×3 (08:28→17:40)
[2017-01-29] MEDS: ASPIRIN (EC) 325 MG TAB PO SCH (10:11)
[2017-01-29] MEDS: METOPROLOL (XL) 50 MG TAB PO SCH (10:12)
[2017-01-29] MEDS: LOSARTAN 50 MG TAB PO SCH (10:12)
[2017-01-29] MEDS: HEPARIN 5,000 UNIT/0.5 ML VIAL SC SCH ×2 (10:15→21:41)
--- NOTE | 2017-01-29 11:30 | PN ---
DATE: 01/29/2017 MEDICINE FOLLOWUP NOTE SUBJECTIVE: The patient Cole remains stable. No overnight events. PHYSICAL EXAMINATION: VITAL SIGNS: Temperature 98, pulse is 110, blood pressure 155/70, O2 saturation 96% on room air. NECK: Supple. No JVD or lymphadenopathy. CARDIAC: S1, S2, no added sounds or murmurs. CHEST: Diminished air entry bilaterally. ABDOMEN: Soft, nontender. No guarding or rebound. EXTREMITIES: No cyanosis, clubbing, or edema. NEUROLOGIC: Hemiplegia. IMPRESSION: 1. Right internal capsular cerebrovascular accident. 2. History of hypertension. 3. Diabetes mellitus. 4. Transaminitis with elevated alkaline phosphatase with renal ultrasound demonstrates increased ec hogenicity of the liver, diffuse gallbladder wall thickening, and normal common bile duct. PLAN: 1. Repeat baseline labs. There is no evidence of infection at present. 2. Monitor liver function tests. 3. Continue antihypertensives. 4. EKG if remains in tachycardia. Dictated By: DULCE MALIN/ILIA Conf#: [id number] DID#: [id number]
--- NOTE | 2017-01-29 11:49 | CONS ---
Date/Time of Note Date/Time of Note DATE: 01/29/17 TIME: 11:40 Consult Date/Type/Reason Admit Date/Time Jan 23, 2017 at 18:46 Type of Consultation: Internal medicine Objective Vital Signs Date Time Temp Pulse Resp B/P Pulse Ox O2 Delivery O2 Flow Rate FiO2 01/29/17 08:43 120 18 98 21 01/29/17 07:30 98.3 155/70 01/26/17 09:46 1.0 01/25/17 08:39 Nasal Cannula Intake and Output 01/28/17 01/28/17 01/29/17 14:59 22:59 06:59 Intake Total 720 ml 580 ml 110 ml Output Total 600 ml Balance 720 ml -20 ml 110 ml INTERDISCIPLINARY TEAM CONFERENCE BOWEL- Cont BLADDER-tabor OT- DRESSING-mod/min BATHING-mod/min TOILETING-mod PT- BED MOBILITY-min TRANSFERS-mod AMBULATION-max W.C. MOBILITY-mod 50 feet SPEECH- COGNITION-mod/min A/P- Interdisciplinary team conference held today. Please see interdisciplinary sheet. Working toward d.c. on 02/06 with post discharge follow up of physical therapy, occupational therapy. Results/Medications Result Diagram: 01/26/17 0545 01/26/17 0545 Results 24 hrs Laboratory Tests Test 01/28/17 12:22 01/28/17 20:26 01/29/17 08:01 Bedside Glucose 118 105 103 Medications Current Medications Aspirin (Ecotrin) 325 mg DAILY PO Last administered on 01/29/17 10:11; Admin Dose 325 MG; Start 01/24/17 at 09:00 Atorvastatin Calcium (Lipitor) 80 mg DAILY@21 PO Last administered on 20:27; Admin Dose 80 MG; Start 01/23/17 at 21:00 Docusate Sodium (Colace) 100 mg Q12H PRN PO CONSTIPATION; Start 01/23/17 at 21: 00 Heparin Sodium (Porcine) (Heparin (5000 Units/0.5 ml)) 5,000 unit Q12 SC Last administered on 01/29/17 10:15; Admin Dose 5,000 UNIT; Start 01/23/17 at 21:00 Ibuprofen (Motrin) 600 mg Q6H PRN PO PAIN; Start 01/23/17 at 21:00 Diagnostic Test (Pha) (Accu-Chek) 1 ea 02 XX ; Start 01/24/17 at 02:00 Insulin Glargine (Lantus) 24 unit HS SC Last administered on 01/28/17 20:35; Admin Dose 24 UNIT; Start 01/23/17 at 21:00 Miscellaneous Information 1 ea NOTE XX ; Start 01/23/17 at 21:00 Glucose (Glutose) 15 gm Q15M PRN PO DECREASED GLUCOSE; Start 01/23/17 at 21:00 Glucose (Glutose) 22.5 gm Q15M PRN PO DECREASED GLUCOSE; Start 01/23/17 at 21:00 Dextrose (D50w Syringe) 25 ml Q15M PRN IV DECREASED GLUCOSE; Start 01/23/17 at 21:00 Dextrose (D50w Syringe) 50 ml Q15M PRN IV DECREASED GLUCOSE; Start 01/23/17 at 21:00 Glucagon (Glucagen) 1 mg Q15M PRN IM DECREASED GLUCOSE; Start 01/23/17 at 21:00 Glucose (Glutose) 15 gm Q15M PRN BUCCAL DECREASED GLUCOSE; Start 01/23/17 at 21: 00 Losartan Potassium (Cozaar) 50 mg DAILY PO Last administered on 01/29/17 10:12 ; Admin Dose 50 MG; Start 01/24/17 at 09:00 Metoprolol Succinate (Toprol Xl) 50 mg DAILY PO Last administered on 01/29/17 10:12; Admin Dose 50 MG; Start 01/24/17 at 09:00 Ergocalciferol (Drisdol) 50,000 unit Q7D PO Last administered on 01/28/17 09: 00; Admin Dose 50,000 UNIT; Start 01/28/17 at 09:00 Bisacodyl (Dulcolax Supp) 10 mg DAILY PRN [place] CONSTIPATION; Start 01/24/17 at 03 :30 Magnesium Hydroxide (Milk Of Mag) 30 ml BID PRN PO CONSTIPATION; Start at 03:30 Lactulose (Enulose) 20 gm DAILY PRN PO CONSTIPATION; Start 01/24/17 at 03:30 Alprazolam (Xanax) 0.5 mg Q6H PRN PO ANXIETY Last administered on 01/25/17 16: 39; Admin Dose 0.5 MG; Start 01/24/17 at 21:00 JACQUI KING MD Jan 29, 2017 11:49
[2017-01-29 20:00] VITALS: BP 140/79; RESP 18
[2017-01-29] MEDS: ATORVASTATIN 80 MG TAB PO SCH (21:34)
[2017-01-29] MEDS: INSULIN GLARGINE [LANtus] 3 ML PEN SC SCH (21:42)
[2017-01-30] MEDS: ALBUTEROL/IPRATROPIUM (NEB) 3 ML AMP HHN SCH ×6 (01:19→21:36)
[2017-01-30] MEDS: ACCUCHECK AT 2AM (Patients on SS coverage) XX SCH (02:00)
[2017-01-30] MEDS: Insulin NOVOLOG SS MILD Algorithm (SS with meals and bedtime) SC SCH ×4 (07:05→20:15)
[2017-01-30 07:22] LABS: ADD SCAN DIFF NO
[2017-01-30 07:29] LABS: BASOPHIL # 0.1 10^3/ul (0.0-0.1); BASOPHILS % 0.5 % (0.0-2.0); EOSINOPHILS # 0.2 10^3/ul (0.0-0.5); EOSINOPHILS % 1.8 % (0.0-7.0); HEMATOCRIT 41.3 % (42.0-52.0); LYMPHOCYTES % 29.8 % (15.0-51.0); MEAN CORPUSCULAR HGB CONC 33.9 g/dl (32.0-37.0); MEAN CORPUSCULAR VOLUME 91.4 fl (82.0-101.0); MONOCYTE # 0.7 10^3/ul (0.3-0.9); MONOCYTES % 7.4 % (0.0-11.0); NEUTROPHILS % 59.9 % (39.0-77.0); PLATELET COUNT 257 10^3/UL (140-415); RED BLOOD COUNT 4.52 10^6/ul (4.70-6.10); RED CELL DISTRIBUTION WIDTH 12.1 % (11.5-14.5)
[2017-01-30 08:00] VITALS: BP 139/76; PULSE 99; RESP 18
[2017-01-30 08:17] LABS: CALCIUM 10.1 mg/dl (8.4-10.2); CREATININE 0.8 mg/dl (0.61-1.24); MAGNESIUM 1.6 mg/dl (1.7-2.5); POTASSIUM 4.1 mmol/L (3.5-5.1)
[2017-01-30] MEDS: METOPROLOL (XL) 50 MG TAB PO SCH (08:34)
[2017-01-30] MEDS: LOSARTAN 50 MG TAB PO SCH (08:34)
[2017-01-30] MEDS: ASPIRIN (EC) 325 MG TAB PO SCH (08:34)
[2017-01-30] MEDS: HEPARIN 5,000 UNIT/0.5 ML VIAL SC SCH ×2 (08:35→20:18)
[2017-01-30] MEDS: INSULIN ASPART [NOVOLOG] 3 ML PEN SC SCH ×3 (08:36→17:18)
--- NOTE | 2017-01-30 09:11 | CONS ---
Date/Time of Note Date/Time of Note DATE: 01/30/17 TIME: 09:09 Consult Date/Type/Reason Admit Date/Time Jan 23, 2017 at 18:46 Type of Consultation: Internal medicine Subjective Patient has been resistant to tabor removal, now agreeable to voiding trial Objective pulm-cta mod/max ambulation Vital Signs Date Time Temp Pulse Resp B/P Pulse Ox O2 Delivery O2 Flow Rate FiO2 01/30/17 08:16 91 20 95 21 01/30/17 04:26 Nasal Cannula 2.0 01/29/17 20:00 98.3 140/79 Intake and Output 01/29/17 01/29/17 01/30/17 15:00 23:00 07:00 Intake Total 420 ml 350 ml Output Total 500 ml Balance -80 ml 350 ml Exam Rehab- Right internal capsule infarct cerebrovascular accident, with left-sided weakness. Ambulation improving with AFO and knee support -patient now agreeable to voiding trial. Will monitor PVRs Hypertension. Diabetes mellitus type 2. Anxiety and depression. Osteoarthritis. History of transient ischemic attack and cerebrovascular accident. Results/Medications Result Diagram: 01/30/17 0601/30/17 06 Results 24 hrs Laboratory Tests Test 01/29/17 12:01 01/29/17 12:41 01/29/17 17:31 01/29/17 21:37 Bedside Glucose 61 L 98 96 100 Test 01/30/17 06:05 01/30/17 07:46 White Blood Count 10.0 Red Blood Count 4.52 L Hemoglobin 14.0 Hematocrit 41.3 L Mean Corpuscular Volume 91.4 Mean Corpuscular Hemoglobin 31.0 Mean Corpuscular Hemoglobin Concent 33.9 Red Cell Distribution Width 12.1 Platelet Count 257 Mean Platelet Volume 10.0 Neutrophils % 59.9 Lymphocytes % 29.8 Monocytes % 7.4 Eosinophils % 1.8 Basophils % 0.5 Nucleated Red Blood Cells % 0.0 Neutrophils # 6.0 Lymphocytes # 3.0 H Monocytes # 0.7 Eosinophils # 0.2 Basophils # 0.1 Nucleated Red Blood Cells # 0.0 Sodium Level 142 Potassium Level 4.1 Chloride Level 102 Carbon Dioxide Level 25 Anion Gap 19 H Blood Urea Nitrogen 13 Creatinine 0.80 Glucose Level 107 Calcium Level 10.1 Phosphorus Level 4.0 Magnesium Level 1.6 L Bedside Glucose 122 Medications Current Medications Aspirin (Ecotrin) 325 mg DAILY PO Last administered on 01/30/17 08:34; Admin Dose 325 MG; Start 01/24/17 at 09:00 Atorvastatin Calcium (Lipitor) 80 mg DAILY@21 PO Last administered on 21:34; Admin Dose 80 MG; Start 01/23/17 at 21:00 Docusate Sodium (Colace) 100 mg Q12H PRN PO CONSTIPATION; Start 01/23/17 at 21: 00 Heparin Sodium (Porcine) (Heparin (5000 Units/0.5 ml)) 5,000 unit Q12 SC Last administered on 01/30/17 08:35; Admin Dose 5,000 UNIT; Start 01/23/17 at 21:00 Ibuprofen (Motrin) 600 mg Q6H PRN PO PAIN; Start 01/23/17 at 21:00 Diagnostic Test (Pha) (Accu-Chek) 1 ea 02 XX ; Start 01/24/17 at 02:00 Miscellaneous Information 1 ea NOTE XX ; Start 01/23/17 at 21:00 Glucose (Glutose) 15 gm Q15M PRN PO DECREASED GLUCOSE; Start 01/23/17 at 21:00 Glucose (Glutose) 22.5 gm Q15M PRN PO DECREASED GLUCOSE; Start 01/23/17 at 21:00 Dextrose (D50w Syringe) 25 ml Q15M PRN IV DECREASED GLUCOSE; Start 01/23/17 at 21:00 Dextrose (D50w Syringe) 50 ml Q15M PRN IV DECREASED GLUCOSE; Start 01/23/17 at 21:00 Glucagon (Glucagen) 1 mg Q15M PRN IM DECREASED GLUCOSE; Start 01/23/17 at 21:00 Glucose (Glutose) 15 gm Q15M PRN BUCCAL DECREASED GLUCOSE; Start 01/23/17 at 21: 00 Losartan Potassium (Cozaar) 50 mg DAILY PO Last administered on 01/30/17 08:34 ; Admin Dose 50 MG; Start 01/24/17 at 09:00 Metoprolol Succinate (Toprol Xl) 50 mg DAILY PO Last administered on 01/30/17 08:34; Admin Dose 50 MG; Start 01/24/17 at 09:00 Ergocalciferol (Drisdol) 50,000 unit Q7D PO Last administered on 01/28/17 09: 00; Admin Dose 50,000 UNIT; Start 01/28/17 at 09:00 Bisacodyl (Dulcolax Supp) 10 mg DAILY PRN [place] CONSTIPATION; Start 01/24/17 at 03 :30 Magnesium Hydroxide (Milk Of Mag) 30 ml BID PRN PO CONSTIPATION; Start at 03:30 Lactulose (Enulose) 20 gm DAILY PRN PO CONSTIPATION; Start 01/24/17 at 03:30 Alprazolam (Xanax) 0.5 mg Q6H PRN PO ANXIETY Last administered on 01/25/17 16: 39; Admin Dose 0.5 MG; Start 01/24/17 at 21:00 Insulin Glargine (Lantus) 16 unit HS SC Last administered on 01/29/17 21:42; Admin Dose 16 UNIT; Start 01/29/17 at 21:00 JACQUI KING MD Jan 30, 2017 09:11
[2017-01-30 10:21] LABS: ALBUMIN 4.8 g/dl (3.3-4.9); BILIRUBIN,INDIRECT 0.4 mg/dl (0-1.1); BILIRUBIN,TOTAL 0.4 mg/dl (0.2-1.3); TOTAL PROTEIN 5.9 g/dl (6.1-8.1)
--- NOTE | 2017-01-30 12:06 | CONS ---
Date/Time of Note Date/Time of Note DATE: 01/30/17 TIME: 12:04 Assessment/Plan Assessment/Plan Additional Assessment/Plan Assessment and plan. 1. Patient admitted for acute CVA with clinical improvement. 2. History of diabetes hypertension hyperlipidemia. Continue current supportive care. Continue physical therapy. Consultation Date/Type/Reason Admit Date/Time Jan 23, 2017 at 18:46 Initial Consult Date Type of Consultation: Internal medicine 24 HR Interval Summary Free Text/Dictation Patient condition stable. Patient moving around in the hallway on a wheelchair. According to him he can walk with assistance. Denies any shortness of breath, chest pain. General exam; young male, awake alert. Currently in no distress. Exam/Review of Systems Vital Signs Vitals Vital Signs Date Time Temp Pulse Resp B/P Pulse Ox O2 Delivery O2 Flow Rate FiO2 01/30/17 08:16 91 20 95 21 01/30/17 04:26 Nasal Cannula 2.0 01/29/17 20:00 98.3 140/79 Intake and Output 01/29/17 01/29/17 01/30/17 14:59 22:59 06:59 Intake Total 420 ml 350 ml Output Total 500 ml Balance -80 ml 350 ml Exam HEENT exam; supple neck, no JVD. No lymphadenopathy. Midline trachea. No thyromegaly. Pupils are midsize and reactive to light bilaterally. Patient has fair dentition. Pharynx is clear. Chest examined; clear to auscultation. S1-S2 audible, no murmurs. Regular rhythm. Abdomen examination; soft, no organomegaly. Bowel sounds audible. Nontender. Extremity examination; no peripheral edema. SKIP MINER examination; patient has stable left hemiplegia. Results Result Diagram: 01/30/1760401/30/17604 Results 24 hrs Laboratory Tests Test 01/29/17 12:41 01/29/17 17:31 01/29/17 21:37 01/30/17 06:05 Bedside Glucose 98 96 100 White Blood Count 10.0 Red Blood Count 4.52 L Hemoglobin 14.0 Hematocrit 41.3 L Mean Corpuscular Volume 91.4 Mean Corpuscular Hemoglobin 31.0 Mean Corpuscular Hemoglobin Concent 33.9 Red Cell Distribution Width 12.1 Platelet Count 257 Mean Platelet Volume 10.0 Neutrophils % 59.9 Lymphocytes % 29.8 Monocytes % 7.4 Eosinophils % 1.8 Basophils % 0.5 Nucleated Red Blood Cells % 0.0 Neutrophils # 6.0 Lymphocytes # 3.0 H Monocytes # 0.7 Eosinophils # 0.2 Basophils # 0.1 Nucleated Red Blood Cells # 0.0 Sodium Level 142 Potassium Level 4.1 Chloride Level 102 Carbon Dioxide Level 25 Anion Gap 19 H Blood Urea Nitrogen 13 Creatinine 0.80 Glucose Level 107 Calcium Level 10.1 Phosphorus Level 4.0 Magnesium Level 1.6 L Total Bilirubin 0.4 Direct Bilirubin 0.00 Indirect Bilirubin 0.4 Aspartate Amino Transf (AST/SGOT) 43 Alanine Aminotransferase (ALT/SGPT) 58 Alkaline Phosphatase 119 Total Protein 5.9 #L Albumin 4.8 Test 01/30/17 07:46 Bedside Glucose 122 Medications Medications Current Medications Aspirin (Ecotrin) 325 mg DAILY PO Last administered on 01/30/17 08:34; Admin Dose 325 MG; Start 01/24/17 at 09:00 Atorvastatin Calcium (Lipitor) 80 mg DAILY@21 PO Last administered on 21:34; Admin Dose 80 MG; Start 01/23/17 at 21:00 Docusate Sodium (Colace) 100 mg Q12H PRN PO CONSTIPATION; Start 01/23/17 at 21: 00 Heparin Sodium (Porcine) (Heparin (5000 Units/0.5 ml)) 5,000 unit Q12 SC Last administered on 01/30/17 08:35; Admin Dose 5,000 UNIT; Start 01/23/17 at 21:00 Ibuprofen (Motrin) 600 mg Q6H PRN PO PAIN; Start 01/23/17 at 21:00 Diagnostic Test (Pha) (Accu-Chek) 1 ea 02 XX ; Start 01/24/17 at 02:00 Miscellaneous Information 1 ea NOTE XX ; Start 01/23/17 at 21:00 Glucose (Glutose) 15 gm Q15M PRN PO DECREASED GLUCOSE; Start 01/23/17 at 21:00 Glucose (Glutose) 22.5 gm Q15M PRN PO DECREASED GLUCOSE; Start 01/23/17 at 21:00 Dextrose (D50w Syringe) 25 ml Q15M PRN IV DECREASED GLUCOSE; Start 01/23/17 at 21:00 Dextrose (D50w Syringe) 50 ml Q15M PRN IV DECREASED GLUCOSE; Start 01/23/17 at 21:00 Glucagon (Glucagen) 1 mg Q15M PRN IM DECREASED GLUCOSE; Start 01/23/17 at 21:00 Glucose (Glutose) 15 gm Q15M PRN BUCCAL DECREASED GLUCOSE; Start 01/23/17 at 21: 00 Losartan Potassium (Cozaar) 50 mg DAILY PO Last administered on 01/30/17 08:34 ; Admin Dose 50 MG; Start 01/24/17 at 09:00 Metoprolol Succinate (Toprol Xl) 50 mg DAILY PO Last administered on 01/30/17 08:34; Admin Dose 50 MG; Start 01/24/17 at 09:00 Ergocalciferol (Drisdol) 50,000 unit Q7D PO Last administered on 01/28/17 09: 00; Admin Dose 50,000 UNIT; Start 01/28/17 at 09:00 Bisacodyl (Dulcolax Supp) 10 mg DAILY PRN [place] CONSTIPATION; Start 01/24/17 at 03 :30 Magnesium Hydroxide (Milk Of Mag) 30 ml BID PRN PO CONSTIPATION; Start at 03:30 Lactulose (Enulose) 20 gm DAILY PRN PO CONSTIPATION; Start 01/24/17 at 03:30 Alprazolam (Xanax) 0.5 mg Q6H PRN PO ANXIETY Last administered on 01/25/17 16: 39; Admin Dose 0.5 MG; Start 01/24/17 at 21:00 Insulin Glargine (Lantus) 16 unit HS SC Last administered on 01/29/17 21:42; Admin Dose 16 UNIT; Start 01/29/17 at 21:00 DYLAN SIGALA 16, 2017 12:06
[2017-01-30 20:00] VITALS: BP 145/83; RESP 18
[2017-01-30] MEDS: INSULIN GLARGINE [LANtus] 3 ML PEN SC SCH (20:17)
[2017-01-30] MEDS: ATORVASTATIN 80 MG TAB PO SCH (20:24)
[2017-01-31] MEDS: ALBUTEROL/IPRATROPIUM (NEB) 3 ML AMP HHN SCH ×6 (00:59→21:30)
[2017-01-31] MEDS: ACCUCHECK AT 2AM (Patients on SS coverage) XX SCH (02:00)
[2017-01-31] MEDS: Insulin NOVOLOG SS MILD Algorithm (SS with meals and bedtime) SC SCH ×4 (07:05→21:00)
[2017-01-31 07:30] VITALS: BP 111/56; RESP 18
[2017-01-31] MEDS: INSULIN ASPART [NOVOLOG] 3 ML PEN SC SCH ×3 (07:58→17:28)
[2017-01-31] MEDS: HEPARIN 5,000 UNIT/0.5 ML VIAL SC SCH ×2 (08:22→21:15)
[2017-01-31] MEDS: METOPROLOL (XL) 50 MG TAB PO SCH (08:24)
[2017-01-31] MEDS: ASPIRIN (EC) 325 MG TAB PO SCH (08:24)
[2017-01-31] MEDS: LOSARTAN 50 MG TAB PO SCH (08:24)
--- NOTE | 2017-01-31 12:03 | PN ---
Date/Time of Note Date/Time of Note DATE: 01/31/17 TIME: 11:55 Assessment/Plan Lines/Catheters IV Catheter Type (from Nrs): Saline Lock Urinary Cath still in place: No Assessment/Plan Assessment/Plan 1. Right internal capsule cerebrovascular accident, with left-sided hemiplegia, impaired mobility/gait/ADLs. Continue PT/OT. Mod assist x2 for bed mobility and transfers. Continue secondary stroke prevention. 2. Hypertension. BP controlled. Continue medical management. 3. Diabetes mellitus type 2. Monitor blood sugars. Continue insulin regimen per internal medicine. 4. Anxiety/ depression. Monitor mood. 5. History of Osteoarthritis. Subjective 24 Hr Interval Summary Free Text/Dictation Rehab progress note Subjective/History: No acute complaints. Nursing reports patient voiding well since tabor catheter removed. ROS: Denies chest pain, no shortness of breath, no abdominal pain, no nausea or vomiting, no headache or dizziness. Exam/Review of Systems Vital Signs Vitals Vital Signs Date Time Temp Pulse Resp B/P Pulse Ox O2 Delivery O2 Flow Rate FiO2 01/31/17 09:25 86 20 92 21 01/31/17 05:13 Nasal Cannula 2.0 01/30/17 20:00 98.9 145/83 Intake and Output 01/30/17 01/30/17 01/31/17 15:00 23:00 07:00 Intake Total 350 ml Output Total 950 ml 400 ml Balance -600 ml -400 ml Exam General: Awake, alert, no acute distress CV: Regular rate, s1s2 Lungs clear to auscultation, no wheezing Abdomen soft, nontender Extremities without cyanosis, no new swelling Neuro: Left sided hemiplegia. No new sensory changes. Follows simple commands. Results Result Diagram: 01/30/1760401/30/17604 Results 24 hrs Laboratory Tests Test 01/30/17 12:24 01/30/17 17:33 01/30/17 20:09 01/31/17 07:44 Bedside Glucose 105 76 92 102 Medications Medications Current Medications Aspirin (Ecotrin) 325 mg DAILY PO Last administered on 01/31/17 08:24; Admin Dose 325 MG; Start 01/24/17 at 09:00 Atorvastatin Calcium (Lipitor) 80 mg DAILY@21 PO Last administered on 21:34; Admin Dose 80 MG; Start 01/23/17 at 21:00 Docusate Sodium (Colace) 100 mg Q12H PRN PO CONSTIPATION; Start 01/23/17 at 21: 00 Heparin Sodium (Porcine) (Heparin (5000 Units/0.5 ml)) 5,000 unit Q12 SC Last administered on 01/31/17 08:22; Admin Dose 5,000 UNIT; Start 01/23/17 at 21:00 Ibuprofen (Motrin) 600 mg Q6H PRN PO PAIN; Start 01/23/17 at 21:00 Diagnostic Test (Pha) (Accu-Chek) 1 ea 02 XX ; Start 01/24/17 at 02:00 Miscellaneous Information 1 ea NOTE XX ; Start 01/23/17 at 21:00 Glucose (Glutose) 15 gm Q15M PRN PO DECREASED GLUCOSE; Start 01/23/17 at 21:00 Glucose (Glutose) 22.5 gm Q15M PRN PO DECREASED GLUCOSE; Start 01/23/17 at 21:00 Dextrose (D50w Syringe) 25 ml Q15M PRN IV DECREASED GLUCOSE; Start 01/23/17 at 21:00 Dextrose (D50w Syringe) 50 ml Q15M PRN IV DECREASED GLUCOSE; Start 01/23/17 at 21:00 Glucagon (Glucagen) 1 mg Q15M PRN IM DECREASED GLUCOSE; Start 01/23/17 at 21:00 Glucose (Glutose) 15 gm Q15M PRN BUCCAL DECREASED GLUCOSE; Start 01/23/17 at 21: 00 Losartan Potassium (Cozaar) 50 mg DAILY PO Last administered on 01/31/17 08:24 ; Admin Dose 50 MG; Start 01/24/17 at 09:00 Metoprolol Succinate (Toprol Xl) 50 mg DAILY PO Last administered on 01/31/17 08:24; Admin Dose 50 MG; Start 01/24/17 at 09:00 Ergocalciferol (Drisdol) 50,000 unit Q7D PO Last administered on 01/28/17 09: 00; Admin Dose 50,000 UNIT; Start 01/28/17 at 09:00 Bisacodyl (Dulcolax Supp) 10 mg DAILY PRN [place] CONSTIPATION; Start 01/24/17 at 03 :30 Magnesium Hydroxide (Milk Of Mag) 30 ml BID PRN PO CONSTIPATION; Start 6/10/ 17 at 03:30 Lactulose (Enulose) 20 gm DAILY PRN PO CONSTIPATION; Start 01/24/17 at 03:30 Alprazolam (Xanax) 0.5 mg Q6H PRN PO ANXIETY Last administered on 01/25/17 16: 39; Admin Dose 0.5 MG; Start 01/24/17 at 21:00 Insulin Glargine (Lantus) 16 unit HS SC Last administered on 01/30/17 20:17; Admin Dose 16 UNIT; Start 01/29/17 at 21:00 DIONY MCGHEE Jan 31, 2017 12:03
[2017-01-31 13:25] VITALS: BP 125/82; PULSE 98; RESP 18
[2017-01-31] MEDS: ALPRAZOLAM 0.5 MG TAB PO PRN (13:53)
[2017-01-31] MEDS: TRIMETHOPRIM/SULFAMETHOX (DS) TAB PO SCH (21:14)
[2017-01-31] MEDS: ATORVASTATIN 80 MG TAB PO SCH (21:14)
[2017-01-31] MEDS: INSULIN GLARGINE [LANtus] 3 ML PEN SC SCH (21:15)
[2017-02-01] MEDS: ALBUTEROL/IPRATROPIUM (NEB) 3 ML AMP HHN SCH ×6 (00:46→20:31)
[2017-02-01] MEDS: ACCUCHECK AT 2AM (Patients on SS coverage) XX SCH (02:00)
[2017-02-01] MEDS: Insulin NOVOLOG SS MILD Algorithm (SS with meals and bedtime) SC SCH ×4 (07:05→20:34)
[2017-02-01 08:12] VITALS: BP 135/86; RESP 17
[2017-02-01] MEDS: ASPIRIN (EC) 325 MG TAB PO SCH (08:17)
[2017-02-01] MEDS: LOSARTAN 50 MG TAB PO SCH (08:17)
[2017-02-01] MEDS: METOPROLOL (XL) 50 MG TAB PO SCH (08:18)
[2017-02-01] MEDS: HEPARIN 5,000 UNIT/0.5 ML VIAL SC SCH ×2 (08:19→20:34)
[2017-02-01] MEDS: INSULIN ASPART [NOVOLOG] 3 ML PEN SC SCH ×3 (08:22→17:39)
[2017-02-01] MEDS: TRIMETHOPRIM/SULFAMETHOX (DS) TAB PO SCH ×2 (09:00→20:31)
--- NOTE | 2017-02-01 12:30 | CONS ---
Date/Time of Note Date/Time of Note DATE: 02/01/17 TIME: 12:30 Consultation Date/Type/Reason Admit Date/Time Jan 23, 2017 at 18:46 Type of Consultation: Internal medicine 24 HR Interval Summary Free Text/Dictation dictated. [id number] Exam/Review of Systems Vital Signs Vitals Vital Signs Date Time Temp Pulse Resp B/P Pulse Ox O2 Delivery O2 Flow Rate FiO2 02/01/17 08:12 98.5 92 17 135/86 97 02/01/17 05:36 Nasal Cannula 2.0 01/31/17 15:12 21 Intake and Output 01/31/17 01/31/17 02/01/17 15:00 23:00 07:00 Intake Total 940 ml 240 ml Output Total 750 ml 920 ml 600 ml Balance -750 ml 20 ml -360 ml Results Result Diagram: 01/30/1705 01/30/17 0605 Results 24 hrs Laboratory Tests Test 01/31/17 21:12 02/01/17 07:50 02/01/17 12:11 Bedside Glucose 110 112 86 Medications Medications Current Medications Aspirin (Ecotrin) 325 mg DAILY PO Last administered on 02/01/17 08:17; Admin Dose 325 MG; Start 01/24/17 at 09:00 Atorvastatin Calcium (Lipitor) 80 mg DAILY@21 PO Last administered on 21:14; Admin Dose 80 MG; Start 01/23/17 at 21:00 Docusate Sodium (Colace) 100 mg Q12H PRN PO CONSTIPATION; Start 01/23/17 at 21: 00 Heparin Sodium (Porcine) (Heparin (5000 Units/0.5 ml)) 5,000 unit Q12 SC Last administered on 02/01/17 08:19; Admin Dose 5,000 UNIT; Start 01/23/17 at 21:00 Ibuprofen (Motrin) 600 mg Q6H PRN PO PAIN; Start 01/23/17 at 21:00 Diagnostic Test (Pha) (Accu-Chek) 1 ea 02 XX ; Start 01/24/17 at 02:00 Miscellaneous Information 1 ea NOTE XX ; Start 01/23/17 at 21:00 Glucose (Glutose) 15 gm Q15M PRN PO DECREASED GLUCOSE; Start 01/23/17 at 21:00 Glucose (Glutose) 22.5 gm Q15M PRN PO DECREASED GLUCOSE; Start 01/23/17 at 21:00 Dextrose (D50w Syringe) 25 ml Q15M PRN IV DECREASED GLUCOSE; Start 01/23/17 at 21:00 Dextrose (D50w Syringe) 50 ml Q15M PRN IV DECREASED GLUCOSE; Start 01/23/17 at 21:00 Glucagon (Glucagen) 1 mg Q15M PRN IM DECREASED GLUCOSE; Start 01/23/17 at 21:00 Glucose (Glutose) 15 gm Q15M PRN BUCCAL DECREASED GLUCOSE; Start 01/23/17 at 21: 00 Losartan Potassium (Cozaar) 50 mg DAILY PO Last administered on 02/01/17 08:17 ; Admin Dose 50 MG; Start 01/24/17 at 09:00 Metoprolol Succinate (Toprol Xl) 50 mg DAILY PO Last administered on 02/01/17 08:18; Admin Dose 50 MG; Start 01/24/17 at 09:00 Ergocalciferol (Drisdol) 50,000 unit Q7D PO Last administered on 01/28/17 09: 00; Admin Dose 50,000 UNIT; Start 01/28/17 at 09:00 Bisacodyl (Dulcolax Supp) 10 mg DAILY PRN [place] CONSTIPATION; Start 01/24/17 at 03 :30 Magnesium Hydroxide (Milk Of Mag) 30 ml BID PRN PO CONSTIPATION; Start at 03:30 Lactulose (Enulose) 20 gm DAILY PRN PO CONSTIPATION; Start 01/24/17 at 03:30 Alprazolam (Xanax) 0.5 mg Q6H PRN PO ANXIETY Last administered on 01/31/17 13: 53; Admin Dose 0.5 MG; Start 01/24/17 at 21:00 Insulin Glargine (Lantus) 16 unit HS SC Last administered on 01/31/17 21:15; Admin Dose 16 UNIT; Start 01/29/17 at 21:00 Trimethoprim/ Sulfamethoxazole (Bactrim (Ds)) 1 tab BID PO Last administered on 02/01/17 09:00; Admin Dose 1 TAB; Start 01/31/17 at 21:00; Stop 02/05/17 at 20:59 DYLAN SIGALA Feb 01, 2017 12:30
--- NOTE | 2017-02-01 13:47 | CONS ---
DATE OF ADMISSION: 01/23/2017 DATE OF CONSULTATION: 02/01/2017 Mr. Angel Galvan's condition is stable. HISTORY OF PRESENT ILLNESS: The patient is completely awake, alert, denies any shortness of breath, chest pain. The patient is getting aggressive physical therapy. He is ambulating with the physica l therapist. PHYSICAL EXAMINATION: GENERAL: Young male, morbid obese, currently in no distress. VITAL SIGNS: Temperature is 98.5 degrees Fahrenheit, heart rate 92 per minute, respiratory rate is 18 per minute, blood pressure 135/86, O2 sat 97% on 2 liter nasal cannula. HEENT: Supple, no JVD, no lymphadenopathy, midline trachea, no thyromegaly pharynx clear, no neck b ruits. Pupils are midsize and reactive to light. Patient has fair dentition. CHEST: Clear to auscultation. HEART: S1, S2 audible. No murmurs, regular rhythm. ABDOMEN: Soft, protuberant. Bowel sounds audible, nontender. EXTREMITIES: No peripheral edema. Pulses 1+ bilaterally. There is no clubbing. NEUROLOGIC: Patient has stable left hemiplegia. ASSESSMENT: 1. Patient admitted for acute cerebrovascular accident with clinical improvement. 2. History of diabetes, hypertension, hyperlipidemia. PLAN: Continue current physical therapy. Patient responding well to current treatment regimen. Dictated By: DYLAN ALFARO/ILIA Conf#: [id number] DID#: [id number]
[2017-02-01] MEDS: ATORVASTATIN 80 MG TAB PO SCH (20:31)
[2017-02-01] MEDS: INSULIN GLARGINE [LANtus] 3 ML PEN SC SCH (20:34)
[2017-02-02] MEDS: ALBUTEROL/IPRATROPIUM (NEB) 3 ML AMP HHN SCH ×5 (01:22→21:00)
[2017-02-02] MEDS: ACCUCHECK AT 2AM (Patients on SS coverage) XX SCH (02:00)
[2017-02-02 06:26] VITALS: BP 132/83; RESP 18
[2017-02-02] MEDS: Insulin NOVOLOG SS MILD Algorithm (SS with meals and bedtime) SC SCH ×4 (07:05→21:00)
[2017-02-02 07:34] VITALS: BP 164/80; RESP 17
[2017-02-02] MEDS: INSULIN ASPART [NOVOLOG] 3 ML PEN SC SCH ×3 (08:09→18:20)
[2017-02-02] MEDS: HEPARIN 5,000 UNIT/0.5 ML VIAL SC SCH ×2 (08:10→20:45)
[2017-02-02] MEDS: METOPROLOL (XL) 50 MG TAB PO SCH (08:12)
[2017-02-02] MEDS: TRIMETHOPRIM/SULFAMETHOX (DS) TAB PO SCH ×2 (08:13→20:43)
[2017-02-02] MEDS: ASPIRIN (EC) 325 MG TAB PO SCH (08:13)
[2017-02-02] MEDS: LOSARTAN 50 MG TAB PO SCH (08:13)
--- NOTE | 2017-02-02 11:58 | PN ---
Date/Time of Note Date/Time of Note DATE: 02/02/17 TIME: 11:55 Assessment/Plan Lines/Catheters IV Catheter Type (from Nrsg): Saline Lock Urinary Cath still in place: No Assessment/Plan Assessment/Plan 1. Right internal capsule cerebrovascular accident, with left-sided hemiplegia, impaired mobility/gait/ADLs/cognition. Continue PT/OT/ST. Continue secondary stroke prevention per neurology. Patient remains a fall risk, very impulsive. Continue 1:1 sitter and falls prevention precautions per facility protocol. 2. Hypertension. BP controlled. Continue medical management. 3. Diabetes mellitus type 2. Monitor blood sugars. Continue insulin regimen per internal medicine. 4. Anxiety/ depression. Continue medical management. 5. History of Osteoarthritis. Pain control as needed. Greater than 35 minutes spent on patient encounter, greater than 50% of time face to face with patient and in coordination of patient care. Team conference held today. Current level of function mod assist for bed mobility, transfers and gait 50ft with PFWW. Mod to max assist for bathing, dressing. Supervision for grooming. Anticipate discharge to SNF when bed available. Subjective 24 Hr Interval Summary Free Text/Dictation Rehab progress note Subjective: Denies any acute complaints. No acute overnight events per nursing staff. ROS: Denies headache, no dizziness, no chest pain, no shortness of breath, no abdominal pain, no nausea or vomiting, denies dysuria, no chills. Exam/Review of Systems Vital Signs Vitals Vital Signs Date Time Temp Pulse Resp B/P Pulse Ox O2 Delivery O2 Flow Rate FiO2 02/02/17 10:04 83 18 99 21 02/02/17 07:34 97.4 164/80 02/02/17 06:26 Room Air 02/01/17 05:36 2.0 Intake and Output 02/01/17 02/01/17 02/02/17 15:00 23:00 07:00 Intake Total 1090 ml 240 ml Output Total 200 ml 350 ml 490 ml Balance 890 ml -350 ml -250 ml Exam General: Awake, alert, no acute distress CV: Regular rate, s1s2 Lungs clear to auscultation, no wheezing Abdomen soft, nontender Extremities without cyanosis, no new swelling Neuro: Left sided hemiplegia stable. Follows simple commands. Results Result Diagram: 01/30/1760401/30/17604 Results 24 hrs Laboratory Tests Test 02/01/17 12:11 02/01/17 17:25 02/01/17 20:29 02/02/17 07:37 Bedside Glucose 86 96 92 112 Test 02/02/17 10:15 Magnesium Level 1.7 Medications Medications Current Medications Aspirin (Ecotrin) 325 mg DAILY PO Last administered on 02/02/17 08:13; Admin Dose 325 MG; Start 01/24/17 at 09:00 Atorvastatin Calcium (Lipitor) 80 mg DAILY@21 PO Last administered on 20:31; Admin Dose 80 MG; Start 01/23/17 at 21:00 Docusate Sodium (Colace) 100 mg Q12H PRN PO CONSTIPATION; Start 01/23/17 at 21: 00 Heparin Sodium (Porcine) (Heparin (5000 Units/0.5 ml)) 5,000 unit Q12 SC Last administered on 02/02/17 08:10; Admin Dose 5,000 UNIT; Start 01/23/17 at 21:00 Ibuprofen (Motrin) 600 mg Q6H PRN PO PAIN; Start 01/23/17 at 21:00 Diagnostic Test (Pha) (Accu-Chek) 1 ea 02 XX ; Start 01/24/17 at 02:00 Miscellaneous Information 1 ea NOTE XX ; Start 01/23/17 at 21:00 Glucose (Glutose) 15 gm Q15M PRN PO DECREASED GLUCOSE; Start 01/23/17 at 21:00 Glucose (Glutose) 22.5 gm Q15M PRN PO DECREASED GLUCOSE; Start 01/23/17 at 21:00 Dextrose (D50w Syringe) 25 ml Q15M PRN IV DECREASED GLUCOSE; Start 01/23/17 at 21:00 Dextrose (D50w Syringe) 50 ml Q15M PRN IV DECREASED GLUCOSE; Start 01/23/17 at 21:00 Glucagon (Glucagen) 1 mg Q15M PRN IM DECREASED GLUCOSE; Start 01/23/17 at 21:00 Glucose (Glutose) 15 gm Q15M PRN BUCCAL DECREASED GLUCOSE; Start 01/23/17 at 21: 00 Losartan Potassium (Cozaar) 50 mg DAILY PO Last administered on 02/02/17 08:13 ; Admin Dose 50 MG; Start 01/24/17 at 09:00 Metoprolol Succinate (Toprol Xl) 50 mg DAILY PO Last administered on 02/02/17 08:12; Admin Dose 50 MG; Start 01/24/17 at 09:00 Ergocalciferol (Drisdol) 50,000 unit Q7D PO Last administered on 01/28/17 09: 00; Admin Dose 50,000 UNIT; Start 01/28/17 at 09:00 Bisacodyl (Dulcolax Supp) 10 mg DAILY PRN [place] CONSTIPATION; Start 01/24/17 at 03 :30 Magnesium Hydroxide (Milk Of Mag) 30 ml BID PRN PO CONSTIPATION; Start at 03:30 Lactulose (Enulose) 20 gm DAILY PRN PO CONSTIPATION; Start 01/24/17 at 03:30 Alprazolam (Xanax) 0.5 mg Q6H PRN PO ANXIETY Last administered on 01/31/17 13: 53; Admin Dose 0.5 MG; Start 01/24/17 at 21:00 Insulin Glargine (Lantus) 16 unit HS SC Last administered on 02/01/17 20:34; Admin Dose 16 UNIT; Start 01/29/17 at 21:00 Trimethoprim/ Sulfamethoxazole (Bactrim (Ds)) 1 tab BID PO Last administered on 02/02/17 08:13; Admin Dose 1 TAB; Start 01/31/17 at 21:00; Stop 02/05/17 at 20:59 DIONY MCGHEE Feb 02, 2017 11:57
--- NOTE | 2017-02-02 16:17 | PN ---
DATE: 02/02/2017 HISTORY OF PRESENT ILLNESS: This is a medicine progress note. Mr. Gamboa condition is stable. The patient denies any shortness of breath, chest pain or abdominal pain. Patient is eating well. He is reporting improved vision in the left eye. PHYSICAL EXAMINATION: GENERAL: Middle-aged male, morbidly obese, currently in no distress, awake and alert. VITAL SIGNS: Temperature 98.4 degrees Fahrenheit, heart rate of 90 per minute, blood pressure is 13 2/82, O2 sat 96% on 2 liter nasal cannula, respiratory rate is 18 per minute. NECK: Supple, no JVD, no lymphadenopathy, midline trachea, no thyromegaly, pharynx clear, no neck b ruits. Pupils are mid size and reactive to light. Patient has fair dentition. CHEST: Clear to auscultation. HEART: S1, S2 audible. No murmurs, regular rhythm. ABDOMEN: Protuberant, nontender, bowel sounds audible. No organomegaly. EXTREMITIES: No peripheral edema. Pulses 1+ bilaterally. NEUROLOGIC: Patient is stable left hemiplegia. ASSESSMENT AND PLAN: 1. Patient admitted for acute cerebrovascular accident and undergoing rehabilitation with improved vision in the left eye. 2. History of diabetes, hypertension, hyperlipidemia. RECOMMENDATIONS: Continue current treatment. Continue current physical therapy. Dictated By: DYLAN ALFARO/ILIA Conf#: [id number] DID#: [id number]
[2017-02-02 20:30] VITALS: BP 136/68; RESP 18
[2017-02-02] MEDS: PANTOPRAZOLE (EC) 40 MG TAB PO SCH (20:43)
[2017-02-02] MEDS: ATORVASTATIN 80 MG TAB PO SCH (20:43)
[2017-02-02] MEDS: ALPRAZOLAM 0.5 MG TAB PO PRN (20:44)
[2017-02-02] MEDS: INSULIN GLARGINE [LANtus] 3 ML PEN SC SCH (20:51)
[2017-02-03] MEDS: ALBUTEROL/IPRATROPIUM (NEB) 3 ML AMP HHN SCH ×5 (01:43→13:00)
[2017-02-03] MEDS: ACCUCHECK AT 2AM (Patients on SS coverage) XX SCH (02:00)
[2017-02-03] MEDS: PANTOPRAZOLE (EC) 40 MG TAB PO SCH (06:00)
[2017-02-03] MEDS: Insulin NOVOLOG SS MILD Algorithm (SS with meals and bedtime) SC SCH ×2 (07:50→12:30)
[2017-02-03 08:01] VITALS: BP 133/75; RESP 18
[2017-02-03] MEDS: INSULIN ASPART [NOVOLOG] 3 ML PEN SC SCH ×2 (08:29→12:33)
[2017-02-03] MEDS: HEPARIN 5,000 UNIT/0.5 ML VIAL SC SCH (08:30)
[2017-02-03] MEDS: ASPIRIN (EC) 325 MG TAB PO SCH (08:30)
[2017-02-03] MEDS: TRIMETHOPRIM/SULFAMETHOX (DS) TAB PO SCH (08:30)
[2017-02-03] MEDS: METOPROLOL (XL) 50 MG TAB PO SCH (08:31)
[2017-02-03] MEDS: LOSARTAN 50 MG TAB PO SCH (08:32)
--- NOTE | 2017-02-03 12:24 | PN ---
Date/Time of Note Date/Time of Note DATE: 02/03/17 TIME: 12:20 Assessment/Plan Lines/Catheters IV Catheter Type (from Nrsg): Saline Lock Urinary Cath still in place: No Assessment/Plan Assessment/Plan 1. Right internal capsule cerebrovascular accident, with left-sided hemiplegia, impaired mobility/gait/ADLs/cognition. Continue PT/OT/ST. Continue secondary stroke prevention per neurology. Maintain fall precautions. Min impairments with safety awareness and short term memory. 2. Hypertension. BP controlled. Continue medical management. 3. Diabetes mellitus type 2. Monitor blood sugars. Continue insulin regimen per internal medicine. 4. Anxiety/ depression. Continue medical management. 5. History of Osteoarthritis. Pain control as needed. 6. Discharge to SNF when bed available. Subjective 24 Hr Interval Summary Free Text/Dictation Rehab progress note Subjective: Denies any acute complaints. ROS: Denies headache, no dizziness, no chest pain, no shortness of breath, no abdominal pain, no nausea, no vomiting, no chills. Exam/Review of Systems Vital Signs Vitals Vital Signs Date Time Temp Pulse Resp B/P Pulse Ox O2 Delivery O2 Flow Rate FiO2 02/03/17 09:32 2.0 02/03/17 08:01 98.2 82 18 133/75 98 02/03/17 05:00 Nasal Cannula 02/02/17 13:51 21 Intake and Output 02/02/17 02/02/17 02/03/17 15:00 23:00 07:00 Intake Total 800 ml 500 ml Output Total 600 ml 400 ml Balance 200 ml 100 ml Exam General: Awake, alert, no acute distress CV: Regular rate, s1s2 Lungs clear to auscultation, no wheezing Abdomen soft, nontender Extremities without cyanosis, no new swelling Neuro: No focal changes. Left sided hemiplegia. Results Result Diagram: 01/30/1760401/30/17604 Results 24 hrs Laboratory Tests Test 02/02/17 17:36 02/02/17 20:49 02/03/17 08:16 Bedside Glucose 110 98 107 Medications Medications Current Medications Aspirin (Ecotrin) 325 mg DAILY PO Last administered on 02/03/17 08:30; Admin Dose 325 MG; Start 01/24/17 at 09:00 Atorvastatin Calcium (Lipitor) 80 mg DAILY@21 PO Last administered on 20:43; Admin Dose 80 MG; Start 01/23/17 at 21:00 Docusate Sodium (Colace) 100 mg Q12H PRN PO CONSTIPATION; Start 01/23/17 at 21: 00 Heparin Sodium (Porcine) (Heparin (5000 Units/0.5 ml)) 5,000 unit Q12 SC Last administered on 02/03/17 08:30; Admin Dose 5,000 UNIT; Start 01/23/17 at 21:00 Ibuprofen (Motrin) 600 mg Q6H PRN PO PAIN Last administered on 02/03/17 08:31 ; Admin Dose 600 MG; Start 01/23/17 at 21:00 Diagnostic Test (Pha) (Accu-Chek) 1 ea 02 XX ; Start 01/24/17 at 02:00 Miscellaneous Information 1 ea NOTE XX ; Start 01/23/17 at 21:00 Glucose (Glutose) 15 gm Q15M PRN PO DECREASED GLUCOSE; Start 01/23/17 at 21:00 Glucose (Glutose) 22.5 gm Q15M PRN PO DECREASED GLUCOSE; Start 01/23/17 at 21:00 Dextrose (D50w Syringe) 25 ml Q15M PRN IV DECREASED GLUCOSE; Start 01/23/17 at 21:00 Dextrose (D50w Syringe) 50 ml Q15M PRN IV DECREASED GLUCOSE; Start 01/23/17 at 21:00 Glucagon (Glucagen) 1 mg Q15M PRN IM DECREASED GLUCOSE; Start 01/23/17 at 21:00 Glucose (Glutose) 15 gm Q15M PRN BUCCAL DECREASED GLUCOSE; Start 01/23/17 at 21: 00 Losartan Potassium (Cozaar) 50 mg DAILY PO Last administered on 02/03/17 08:32 ; Admin Dose 50 MG; Start 01/24/17 at 09:00 Metoprolol Succinate (Toprol Xl) 50 mg DAILY PO Last administered on 02/03/17 08:31; Admin Dose 50 MG; Start 01/24/17 at 09:00 Ergocalciferol (Drisdol) 50,000 unit Q7D PO Last administered on 01/28/17 09: 00; Admin Dose 50,000 UNIT; Start 01/28/17 at 09:00 Bisacodyl (Dulcolax Supp) 10 mg DAILY PRN [place] CONSTIPATION; Start 01/24/17 at 03 :30 Magnesium Hydroxide (Milk Of Mag) 30 ml BID PRN PO CONSTIPATION; Start at 03:30 Lactulose (Enulose) 20 gm DAILY PRN PO CONSTIPATION; Start 01/24/17 at 03:30 Alprazolam (Xanax) 0.5 mg Q6H PRN PO ANXIETY Last administered on 02/02/17 20: 44; Admin Dose 0.5 MG; Start 01/24/17 at 21:00 Insulin Glargine (Lantus) 16 unit HS SC Last administered on 02/02/17 20:51; Admin Dose 16 UNIT; Start 01/29/17 at 21:00 Trimethoprim/ Sulfamethoxazole (Bactrim (Ds)) 1 tab BID PO Last administered on 02/03/17 08:30; Admin Dose 1 TAB; Start 01/31/17 at 21:00; Stop 02/05/17 at 20:59 Pantoprazole (Protonix Tab) 40 mg DAILY@06 PO Last administered on 02/02/17 20 :43; Admin Dose 40 MG; Start 02/02/17 at 20:00 DIONY MCGHEE Feb 03, 2017 12:24
== END 2017-02-03 15:15 | DRG 57 ==
LOC: VRC 18:46
PROVIDERS: ADMIT Physical Medicine & Rehabilitation; ATTEND Internal Medicine Pulmonary Disease
PROC: F07Z5ZZ Bed Mobility Treatment (ICD-10-PCS; principal; 2017-01-23)
PROC: F08Z2ZZ Grooming/Personal Hygiene Treatment (ICD-10-PCS; 2017-01-23)
PROC: F06ZDZZ Swallowing Dysfunction Treatment (ICD-10-PCS; 2017-01-23)
DX: I69.354 Hemiplegia and hemiparesis following cerebral infarction affecting left non-dominant side (principal); R13.10 Dysphagia, unspecified; I11.9 Hypertensive heart disease without heart failure; I69.391 Dysphagia following cerebral infarction; E11.9 Type 2 diabetes mellitus without complications; F41.9 Anxiety disorder, unspecified; M19.90 Unspecified osteoarthritis, unspecified site; Z79.82 Long term (current) use of aspirin; Z79.4 Long term (current) use of insulin; F32.9 Major depressive disorder, single episode, unspecified
CPT/HCPCS: 76705; 80048; 80053; 80076; 81001; 82306; 82962; 83735; 84100; 85025; 87081; 87086; 92507; 92523; 92526; 92610; 94640; 94664; 97110; 97112; 97116; 97150; 97163; 97167; 97530; 97535; 97542; J1644; J1815; L1820; L2270; L2275; L2820

== ENCOUNTER 2017-08-30 08:31 | Emergency (ER) | END 2017-08-30 11:15 | disposition home or self-care (01) ==

== ENCOUNTER 2017-11-02 | Inpatient (IN) | END 2017-11-10 18:50 | disposition home or self-care (01) | DRG 603 ==

== ENCOUNTER 2017-11-30 18:21 | Emergency (ER) | END 2017-11-30 22:09 | disposition left against medical advice (07) ==

== ENCOUNTER 2018-04-28 17:57 | Emergency (ER) | END 2018-04-28 20:08 | disposition home or self-care (01) ==